=== PATIENT | male | born 1950 ===

== ENCOUNTER 2020-06-29 10:54 | Inpatient (IN) | payer MEDICARE, OTHER ==
[~2020-06-29] VITALS: Ht 193 cm; Wt 161.5 kg
[2020-06-29] MEDS ORDERED: SODIUM CHLORIDE 0.9% 1,000 ML IVB ONE (11:11)
[2020-06-29 11:51] LABS: Urine Bacteria NONE SEEN /hpf (None Seen); Urine Blood 1+ /uL (Negative); Urine Hyaline Cast MOD /lpf (0 - 2); Urine Mucus FEW (None Seen); Urine Specific Gravity 1.014 (1.001-1.035); Urine WBC 4 /hpf (0 - 3)
[2020-06-29 11:55] LABS: Eosinophils # (auto) 0 10 ^3/uL (0-0.8); Lymphocytes # (auto) 0.7 10 ^3/uL (0.4-5.4); Red Blood Cells 6.16 10^6/uL (4.5-5.90)
[2020-06-29 11:57] LABS: Basophils # (auto) 0 10 ^3/uL (0-0.2); Basophils % (auto) 0.3 % (0.0-2.0); Hematocrit 51.2 % (41.0-53.0); Hemoglobin 16.3 g/dL (13.5-17.5); Lymphocytes % (auto) 4.1 % (10.0-50.0); Mean Corpuscular Hemoglobin 26.4 pg (28.0-32.0); Mean Corpuscular Hgb Conc. 31.8 g/dL (32.0-36.0); Monocytes # (auto) 1.2 10 ^3/uL (0-1.3); Monocytes % (auto) 7.1 % (0.0-12.0); Neutrophils # (auto) 15.1 10 ^3/uL (1.6-8.6); Neutrophils % (auto) 88.5 % (37.0-80.0); Nucleated Red Blood Cells % 0.1 %; Platelet Count (auto) 150 10^3/uL (140-450); White Blood Cell 17.1 10^3/uL (4.4-10.8)
[2020-06-29 12:03] LABS: INR 1.17 (0.9-1.15); Partial Thromboplastin Time 25.9 sec (23.0-31.2)
[2020-06-29 12:07] LABS: Chloride 103 mmol/L (98-107); Potassium 5.4 mmol/L (3.5-5.1); Sodium 137 mmol/L (136-145)
[2020-06-29 12:07] LABS: Alcohol, Urine < 3.0 mg/dL (0-10); Amphetamine Screen, Urine NEGATIVE (NEGATIVE); Barbiturate Scree,Urine NEGATIVE (NEGATIVE); Benzodiazephine Screen, Urine NEGATIVE (NEGATIVE); Cannabinoid Screen, Urine POSITIVE (NEGATIVE); Cocaine Screen, Urine NEGATIVE (NEGATIVE); Opiate Scree,Urine NEGATIVE (NEGATIVE); Phencyclidine Screen, Urine NEGATIVE (NEGATIVE)
[2020-06-29 12:18] LABS: Alanine Aminotransferase 57 U/L (16-61); Albumin 3.4 g/dL (3.4-5.0); Alkaline Phosphatase 62 U/L (45-117); Anion Gap 9 (5-15); Aspartate Aminotransferase 122 U/L (15-37); BUN/Creatinine Ratio 9.4; Bilirubin, Total 1.2 mg/dL (0.2-1.0); Blood Alcohol < 3.0 mg/dL (0-5); Blood Urea Nitrogen 43 mg/dL (7-18); Calcium 7.8 mg/dL (8.5-10.1); Carbon Dioxide 25 mmol/L (21-32); GFR African American 16 mL/min; GFR Non-African American 14 mL/min; Glucose 171 mg/dL (74-106); Magnesium 2.6 mg/dL (1.6-2.6); Total Protein 6.9 g/dL (6.4-8.2)
[2020-06-29 14:51] LABS: Creatinine, Urine 177 mg/dL (30.0-125.0); Sodium Urine 40 mmol/L (40-220)
[2020-06-29] MEDS ORDERED: cefTRIAXone 1GM/50ML D5W 50 ML IV ONE (15:45)
[2020-06-29] MEDS ORDERED: MORPHINE SULF INJ 2 MG/ML SYRINGE 1ML IV PRN ×2 (17:00→19:30)
[2020-06-29] MEDS ORDERED: NITROGLYCERIN 0.4 MG SL TAB SL PRN (17:00)
[2020-06-29] MEDS ORDERED: SODIUM BICARBONATE 8.4 % INJ 50ML VIAL IV ONE (17:15)
[2020-06-29] MEDS ORDERED: FUROSEMIDE 40 MG/4 ML VIAL IV ONE (17:15)
[2020-06-29] MEDS ORDERED: DEXTROSE (50%) 50ML SYRG IV ONE (17:15)
[2020-06-29] MEDS ORDERED: InsuLIN REG 1unit/0.01ml Soln (100units/ml) SC ONE (17:15)
[2020-06-29] MEDS ORDERED: traMADol HCL 50 MG TAB PO PRN (19:30)
[2020-06-29] MEDS ORDERED: ONDANSETRON HCL 4 MG/2 ML VIAL IV PRN (19:30)
[2020-06-29] MEDS ORDERED: SODIUM CHLORIDE 0.9% 1,000 ML IV ONE (19:30)
[2020-06-29] MEDS ORDERED: DEXTROSE (50%) 50ML SYRG IV PRN (19:30)
[2020-06-29] MEDS ORDERED: ACETAMINOPHEN 500 MG TAB PO PRN (19:30)
[2020-06-29] MEDS: FAMOTIDINE (10MG/ML) 2ML VL IV SCH (22:09)
[2020-06-29] MEDS: metroNIDAZOLE 500MG/100ML 100 ML IV SCH (22:09)
[2020-06-29] MEDS: ACCU-CHEK COMFORT CURVE STRIP VI SCH (22:09)
[2020-06-29] MEDS: InsuLIN REG 1unit/0.01ml Soln (100units/ml) SC SCH (22:15)
--- NOTE | 2020-06-29 22:46 | NUR ---
Telemetry admit from [facility] admitted to Telemetry unit. Patient oriented to Mary Ellen Harper RN primary RN, unit, room, bed, and unit policies regarding patient care and visiting hours. Patient now on continuous telemetry monitoring, tele box #[id number] and telemetry reading on arrival to unit is SR. Patient placed on bedside oxygen 8L via simple mask, weighed by bedscale and encouraged to call if they need something. All questions and concerns addressed, patient verbalized understanding. Fall and safety precautions in place. Call light within reach. Wound picture taken of patient's buttocks
[2020-06-30] VITALS (50 sets, daily range): BP systolic 81–141; BP diastolic 33–76
[2020-06-30] MEDS ORDERED: METO2.5T11 PO (01:44)
[2020-06-30] MEDS ORDERED: MULTCHW OR (01:44)
[2020-06-30] MEDS ORDERED: COLCPOW2 PO (01:44)
[2020-06-30] MEDS ORDERED: DILT30TA24 PO (01:44)
[2020-06-30] MEDS ORDERED: METF-370 PO (01:44)
[2020-06-30] MEDS: metroNIDAZOLE 500MG/100ML 100 ML IV SCH ×3 (05:34→22:00)
[2020-06-30] MEDS: InsuLIN REG 1unit/0.01ml Soln (100units/ml) SC SCH ×4 (05:52→22:00)
[2020-06-30] MEDS: ACCU-CHEK COMFORT CURVE STRIP VI SCH ×4 (05:52→22:00)
[2020-06-30 07:02] LABS: Hemoglobin 17.9 g/dL (13.5-17.5); White Blood Cell 25.5 10^3/uL (4.4-10.8)
[2020-06-30 07:05] LABS: Mean Corpuscular Hemoglobin 26.2 pg (28.0-32.0); Mean Corpuscular Hgb Conc. 31.3 g/dL (32.0-36.0); Mean Corpuscular Volume 83.7 fL (80.0-100.0); Platelet Count (auto) 166 10^3/uL (140-450); Red Blood Cells 6.81 10^6/uL (4.5-5.90); Red Cell Distribution Width 21.6 % (11.8-14.3)
[2020-06-30 07:08] LABS: Basophils % (manual) 0 (0.0-2.0); Blast Cells 0; Eosinophils % (manual) 0 (0-7); Metamyelocytes % 0; Myelocytes % 0; Promyelocytes % 0; Reactive Lymphocytes 0
[2020-06-30 07:45] LABS: Albumin 3.2 g/dL (3.4-5.0); BUN/Creatinine Ratio 11.2; Calcium 7.4 mg/dL (8.5-10.1); Total Protein 7.1 g/dL (6.4-8.2)
[2020-06-30 07:59] LABS: Potassium 5.7 mmol/L (3.5-5.1)
--- NOTE | 2020-06-30 08:00 | NUR ---
Received pt resting in bed, call light with in reach, pt on simple mask at 8 lit of O2, alicia draining to gravity with dark brown urine, pt responsive to voice, pt turned and reposition, will continue to monitor pt.
[2020-06-30] MEDS ORDERED: CALCIUM GLUC 4.65meq/50ml D5AE 50 ML IV ONE (08:30)
[2020-06-30] MEDS ORDERED: SODIUM BICARBONATE 8.4% INJ 50ML SYRINGE IV ONE (08:30)
[2020-06-30] MEDS ORDERED: DEXTROSE (50%) 50ML SYRG IV ONE (08:30)
[2020-06-30] MEDS ORDERED: FUROSEMIDE 20 MG/2 ML VIAL IV ONE (08:30)
[2020-06-30] MEDS ORDERED: InsuLIN REG 1unit/0.01ml Soln (100units/ml) IV ONE (08:30)
--- NOTE | 2020-06-30 08:30 | NUR ---
Dr. Nathan at unit, doctor informed regarding critical potassium level of 5.7, that pt is only responsive to voive, that pt is tachypneic, that pt is on a simple mask at 8 lit, orders received and will follow order.
[2020-06-30] MEDS ORDERED: cefTRIAXone 1GM/50ML D5W 50 ML IV SCH (09:00)
[2020-06-30] MEDS ORDERED: ENOXAPARIN SOD 30 MG/0.3 ML SYRINGE SC SCH (10:00)
[2020-06-30] MEDS: PIPERACILLIN-TAZOB 3.375GM 100 ML IV SCH ×2 (10:00→18:00)
--- NOTE | 2020-06-30 10:00 | NUR ---
Pt taken to ICU bed 7.
--- NOTE | 2020-06-30 10:05 | NUR ---
Pt being admitted to ICU [facility] admitted to ICU via gurney on motor boss, and portable 02. Patient transferred to bed, connected to ICU monitoring and oxygen, [facility] Patient oriented to ARELI OQUENDO, primary RN. ASSESSMENT DONE, SKIN CHECK REVEALS NON BLANCHABLE PURPLE/REDNESS RO BUTTOCKS WITH LINEAR BLISTERS TO BOTH RIGHT AND LEFT BUTTOCKS, PATIENT CURRENTLY ON 10 L NON-REBREATHER WITH RESPIRATIONS AT 36BPM. CALL PLACED TO TO VERIFY CHEM CODE STATUS.
[2020-06-30] MEDS ORDERED: ETOMIDATE (2MG/ML) 20ML VIAL IV ONE (11:46)
[2020-06-30] MEDS ORDERED: SUCCINYLCHOLINE CHLORIDE 20 MG/ML 10ML VIAL IV ONE (11:47)
--- NOTE | 2020-06-30 11:50 | NUR ---
AT BEDSIDE FOR INTUBATION
[2020-06-30] MEDS ORDERED: MIDAZOLAM HCL 5 MG/ML-1ML VIAL ONE ×2 (12:05→12:41)
[2020-06-30] MEDS ORDERED: MIDAZOLAM DRIP 50 mg/50mL 50 ML IV ONE ×2 (12:23→15:28)
--- NOTE | 2020-06-30 12:30 | NUR ---
WOUND CARE NOTE: WOUND CARE IN TO SEE PATIENT PER WOUND CARE REQUEST. PATIENT ADMITTED TO [facility] FOR ACUTE RENAL FAILURE AND ALOC. BEDSIDE NURSE NOTED SKIN INTEGRITY ISSUE UPON ADMISSION. PHOTOGRAPH TAKEN AT THAT TIME FOR REFERENCE. PATIENT SAMUEL SCORE IS 12. PATIENT NOTED TO HAVE REDNESS AND CLOSED BLISTERS TO SACRUM. PATIENT CURRENTLY BEING INTUBATED AT THIS TIME. PATIENT NOT STABLE FOR ASSESSMENT AT THIS TIME. RECOMMEND: FREQUENT Q2HOUR REPOSITIONING CONDITION PERMITS. REDISTRIBUTE PRESSURE UTILIZING PILLOWS AND WEDGES. BID/PRN MOISTURE BARRIER CREAM TO SACRUM. SKIN/WOUND CARE PLAN. DIETARY CONSULT. CONTINUED MONITORING BY WOUND CARE TEAM.
[2020-06-30 12:33] LABS: Band Neutrophils % (manual) 13; Lymphocytes % (manual) 4 (10.0-50.0); Monocytes % (manual) 5 (0-12)
--- NOTE | 2020-06-30 12:46 | NUR ---
INTUBATION PT WAS DIFFICULT INTUBATION, REMOVED UNKNOWN FOREIGN OBJECT FROM PT'S AIRWAY BY WITH LAMONTE FORCEPS. INTUBATION ATTEMPTED MULTIPLE TIMES BY DR. PENNINGTON WITHOUT SUCCESS. CALLED ANESTHESIA, PT WAS INTUBATED BY DR. PALMER WITH GLIDESCOPE, WITH ETT 7.5 SECURED AT 25CM LIP, SECURED WITH HOLISTER. POSITIVE COLOR CHANGE ON COLORMETRIC CO2 DETECTOR. PLACED ON VENT V21 PLUGGED INTO RED OUTLET, ON SETTINGS: AC, RR 16, VT 600, PEEP +5, FIO2 60%. BREATH SOUNDS DIMINISHED T/O. SUCTIONED WITH LAVAGE FOR MODERATE THICK YELLOW/BLOOD-TINGED SECRETIONS. ALARMS SET AND AUDIBLE. PT SEDATED AND UNRESPONSIVE. SKIN IS WARM AND DRY TO TOUCH. RN AT BEDSIDE. ABG TO FOLLOW. WILL CONT TO MONITOR.
[2020-06-30] MEDS ORDERED: ROCURONIUM 10MG/ML 10ML VIAL IV ONE ×2 (12:50→13:00)
--- NOTE | 2020-06-30 12:54 | NUR ---
SEDATION OBTAINED SEDATION ORDERS FROM FOR VERSED, FENTANYL, AND ONE TIME DOSE OF ROCURONIUM. PARALYTIC ADMINISTERED BY
[2020-06-30] MEDS ORDERED: MIDAZOLAM HCL 5 MG/ML-1ML VIAL IV ONE ×2 (13:00)
--- NOTE | 2020-06-30 13:07 | NUR ---
ETT 7.5 @ 27CM RADIOLOGY AT BEDSIDE, CXR REVEALED ETT PLACED IN TRACHEA BUT APPEARS HIGH. ADVANCED ETT TO 27CM LIP, CXR TAKEN ONE MORE TIME BY METAL PAINTER. ETT NOW APPEARS APPROPRIATELY PLACED. RN AWARE OF CHANGES.
--- NOTE | 2020-06-30 13:30 | NUR ---
EVELINE TEST Eveline test specimen was obtained by primary RN Sayda Enriquez and walked to the lab by this RN and logged the specimen.
[2020-06-30 14:11] LABS: Potassium 5.5 mmol/L (3.5-5.1)
[2020-06-30] MEDS: fentaNYL Drip 2500mCg/250mlNS 250 ML IV SCH (14:30)
--- NOTE | 2020-06-30 15:50 | NUR ---
DR. SERRANO AT BEDSIDE, UPDATED MD ON PT STATUS. VENT CHANGED MADE BY MD. PT NOW ON SETTINGS: AC, RR 16, VT 700, PEEP +5, FIO2 60%. PT TOLERATING CHANGES, BREATHING OVER THE VENT WITH RR 24, MD IS AWARE. ABG TO FOLLOW. WILL CONT TO MONITOR.
[2020-06-30] MEDS ORDERED: NOREPINEPHRINE 8 MG/250ML KIT 250 ML IV ONE (16:19)
[2020-06-30] MEDS: PROPOFOL 100 ML IV SCH (17:30)
[2020-06-30] MEDS: MIDAZOLAM DRIP 50 mg/50mL 50 ML IV SCH (17:41)
[2020-06-30] MEDS: NOREPINEPHRINE 8 MG/250ML KIT 250 ML IV SCH (17:41)
[2020-06-30] MEDS: FUROSEMIDE INJECTION 100 MG in D5W 5% 100 ML IV SCH ×2 (17:56→18:03)
[2020-06-30] MEDS ORDERED: metFORMIN HYDROCHLORIDE 500 MG TAB PO SCH (18:00)
[2020-06-30] MEDS: PHENYLEPHRINE IV 250 ML IV SCH (18:18)
[2020-06-30] MEDS: SODIUM BICARBONATE 50ML VIAL 50 ML in SOD CHL 0.45% 1,000 ML IV SCH (18:26)
[2020-06-30] MEDS: FAMOTIDINE (10MG/ML) 2ML VL IV SCH (22:00)
[2020-06-30 22:38] LABS: INR 1.34 (0.9-1.15)
[2020-07-01] VITALS (93 sets, daily range): BP systolic 89–156; BP diastolic 48–80
[2020-07-01] MEDS: PIPERACILLIN-TAZOB 3.375GM 100 ML IV SCH (02:00)
[2020-07-01 05:37] LABS: Basophils # (auto) 0.1 10 ^3/uL (0-0.2); Basophils % (auto) 0.3 % (0.0-2.0); Eosinophils # (auto) 0 10 ^3/uL (0-0.8); Neutrophils % (auto) 81.2 % (37.0-80.0); Nucleated Red Blood Cells % 0.2 %
[2020-07-01 05:43] LABS: Hemoglobin 17.1 g/dL (13.5-17.5); Lymphocytes # (auto) 1.1 10 ^3/uL (0.4-5.4); Lymphocytes % (auto) 4.5 % (10.0-50.0); Mean Corpuscular Hemoglobin 26.3 pg (28.0-32.0); Mean Corpuscular Hgb Conc. 31.7 g/dL (32.0-36.0); Mean Corpuscular Volume 82.9 fL (80.0-100.0); Monocytes # (auto) 3.5 10 ^3/uL (0-1.3); Neutrophils # (auto) 20.1 10 ^3/uL (1.6-8.6); Platelet Count (auto) 179 10^3/uL (140-450); Red Blood Cells 6.51 10^6/uL (4.5-5.90); White Blood Cell 24.8 10^3/uL (4.4-10.8)
[2020-07-01 05:48] LABS: Red Cell Distribution Width 21.1 % (11.8-14.3)
[2020-07-01] MEDS: metroNIDAZOLE 500MG/100ML 100 ML IV SCH (06:00)
[2020-07-01] MEDS: ACCU-CHEK COMFORT CURVE STRIP VI SCH ×4 (06:47→21:51)
[2020-07-01] MEDS: InsuLIN REG 1unit/0.01ml Soln (100units/ml) SC SCH ×4 (06:47→21:52)
--- NOTE | 2020-07-01 07:00 | NUR ---
Respiratory note: RECEIVED PATIENT ON V21 V200 VENT ORALLY INTUBATED WITH AN 7.5 ETT SECURED VIA WILLA AT THE 27CM MARKING AT THE LIP, AND MECHANICALLY VENTILATED WITH THE CHARTED SETTINGS. SPO2 97%, LUNG SOUNDS CLEAR/DIM T/O. SKIN IS WARM/DRY TO THE TOUCH AND IS INTACT NEAR WILLA SITE. THERE IS A COOLING BLANKET ON TOP AND UNDER PATIENT. CURRENT TEMP IS 99.5. NO NEW AM CXR TO ASSESS. PATIENT IS UNRESPONSIVE TO BOTH VERBAL/TACTILE STIMULI AND IS SEDATED ON VERSED AND FENTANYL DRIPS. HE IS RESTING COMFORTABLY AND TOLERATING VENT WELL, NO CHANGES MADE. VENT PLUGGED INTO RED OUTLET AND ALL ALARMS ARE SET AND AUDIBLE. WILL CONTINUE TO ASSESS PATIENT WELL VENTILATOR FUNCTION.
--- NOTE | 2020-07-01 07:30 | NUR ---
REPORT RECEIVED FROM APPLICATION SUPPORT ENGINEER NURSE. PATIENT RESTING IN BED INTUBATED AND SEDATED. RESPIRATIONS EVEN AND UNLABORED. NO SIGNS ACUTE DISTRESS NOTED. BED IN LOW POSITION. WILL CONTINUE TO MONITOR.
--- NOTE | 2020-07-01 08:00 | NUR ---
DISH WASHER AT BEDSIDE.
--- NOTE | 2020-07-01 08:05 | NUR ---
DR Analia ANGULO AT BEDSIDE TO ASSESS PATIENT AND DISCUSS PLAN OF CARE. ALL ORDERS NOTED IN CHART.
--- NOTE | 2020-07-01 09:14 | NUR ---
CONTROLS DESIGN ENGINEER AT BEDSIDE.
[2020-07-01] MEDS: FUROSEMIDE INJECTION 100 MG in D5W 5% 100 ML IV SCH ×5 (09:15→23:26)
--- NOTE | 2020-07-01 09:15 | NUR ---
SPOKE TO DR SERRANO AND REVIEWED PATIENT STATUS AND ABG RESULTS. PER MD INCREASE PATIENTS RR TO 18 AND GIVEN 1 AMP SODIUM BICARBONATE IVP X1 DOSE AND START PATIENT ON HYDROCORTISONE 50MG IVP Q6 HRS. ALL ORDERS NOTED IN CHART.
[2020-07-01] MEDS: SODIUM BICARBONATE 50ML VIAL 50 ML in SOD CHL 0.45% 1,000 ML IV SCH ×2 (09:22→10:15)
[2020-07-01] MEDS ORDERED: SODIUM BICARBONATE 8.4 % INJ 50ML VIAL IV ONE (09:30)
--- NOTE | 2020-07-01 09:45 | NUR ---
Respiratory note: RESPIRATORY RATE INCREASED TO [address] SERRANO'S ORDER. STACEY MILLER MADE AWARE OF CHANGE.
[2020-07-01] MEDS ORDERED: ENOXAPARIN SOD 150 MG/1 ML SYRINGE SC SCH (10:00)
--- NOTE | 2020-07-01 10:45 | NUR ---
UPDATED DAUGHTER ON PATIENT STATUS AND PLAN OF CARE. ALL QUESTIONS AND CONCERNS ADDRESSED AT THIS TIME.
[2020-07-01 10:55] LABS: Alkaline Phosphatase 64 U/L (45-117); Anion Gap 17 (5-15); Aspartate Aminotransferase 681 U/L (15-37); BUN/Creatinine Ratio 10.6; Carbon Dioxide 16 mmol/L (21-32); Chloride 105 mmol/L (98-107); GFR African American 9 mL/min; GFR Non-African American 7 mL/min; Glucose 263 mg/dL (74-106); Sodium 138 mmol/L (136-145)
[2020-07-01 10:56] LABS: Alanine Aminotransferase 226 U/L (16-61); Albumin 2.3 g/dL (3.4-5.0); Bilirubin, Total 1.1 mg/dL (0.2-1.0); Calcium 6.9 mg/dL (8.5-10.1); Total Protein 6.2 g/dL (6.4-8.2)
[2020-07-01 10:58] LABS: Blood Urea Nitrogen 82 mg/dL (7-18); Potassium 5.6 mmol/L (3.5-5.1)
[2020-07-01] MEDS: PHENYLEPHRINE IV 250 ML IV SCH ×3 (10:58→19:18)
[2020-07-01] MEDS: MEROPENEM 500MG IVPB 50 ML IV SCH ×2 (11:13→21:50)
[2020-07-01] MEDS: MIDAZOLAM DRIP 50 mg/50mL 50 ML IV SCH ×3 (11:19→17:38)
--- NOTE | 2020-07-01 11:32 | NUR ---
Nutrition Consult/Assessment Note please see attached link for complete assessment Est [employer] needs ABW 121 [id number] kcals (17-20 kcal/kgABW), Est Protein needs: 121-133 gms/day (1.0-1.1 gm/kgABW). Will continue to monitor and reassess prn. Addendum: 07/01/20 at [address] Amended: Links added.
--- NOTE | 2020-07-01 11:34 | NUR ---
MD CALLED REVIEWED CRITICAL LAB VALUES WITH DR GARDUNO, PER MD INCREASE PATIENTS BICARBONATE DRIP TO 2 AMPS AT PREVIOUS RATE. ALL ORDERS NOTED IN CHART.
[2020-07-01] MEDS: NOREPINEPHRINE 8 MG/250ML KIT 250 ML IV SCH ×3 (12:10→22:00)
[2020-07-01] MEDS: HYDROCORTISONE SOD SUCC 100 MG/2ML INJ VIAL IV SCH ×3 (12:16→23:37)
[2020-07-01] MEDS: LINEZOLID 600MG/300ML 300 ML IV SCH ×2 (12:16→23:37)
--- NOTE | 2020-07-01 12:30 | NUR ---
WOUND CARE NOTE: IN TO SEE PATIENT AT THIS TIME PATIENT IS MORE HEMODYNAMICALLY STABLE, ABLE TO TURN/ASSESS SKIN. CURRENT SAMUEL SCORE IS 12. HE REMAINS INTUBATED, SEDATED. PATIENT WAS NOTED UPON ADMIT TO ICU TO HAVE EARLY DTI, WITH MASD/SKIN EROSION TO INTRAGLUTEAL SKIN. WOUND PHOTO WAS TAKEN AT THAT TIME BY BEDSIDE NURSE FOR REFERENCE. PATIENT EVIDENTLY WAS FOUND UNRESPONSIVE BY FAMILY MEMBER, BROUGHT IN TO ER. PATIENT'S ADMITTING DIAGNOSIS IS ACUTE RENAL FAILURE, ALOC. PATIENT TURNED TO RIGHT SIDE. HIS DTI HAS CONTINUED TO EVOLVE, AND IS NOW DARK PURPLE, WITH OPEN SKIN EROSION D/T MASD. PERIWOUND SKIN IS BRIGHT RED. PATIENT HAS GENERLIZED EDEMA NOTED, WITH TAUT SKIN. SKIN IS ALSO VERY MOIST FROM PERSPIRATION. ZGUARD APPLIED TO PARTIAL THICKNESS SKIN EROSION, OPTIFOAM GENTLE SACRAL DRESSING APPLIED TO UPPER SACRUM. PATIENT ALSO HAS MULTIPLE AREAS WITH INTERTRIGO, INCLUDING: LEFT FLANK SKIN FOLD, LEFT AND RIGHT GROIN, ABD. PATIENT WOULD BENEFIT FROM NYSTATIN POWDER OR INTERDRY AG. BILATERAL PLANTAR # 1 TOES HAVE INTACT DFU ULCERATIONS. NO S/S OF INFECTION OR DRAINAGE NOTED. LEFT OPEN TO AIR. NEW WOUND PHOTOS TAKEN OF ALL SKIN INTEGRITY ISSUES FOR REFERENCE AT THIS TIME. RECOMMEND:FREQUENT TURN SCHEDULE Q 2 HOURS, PRN CONDITION PERMITS, WITH SIDE TO SIDE POSITIONING, AVOIDING SUPINE POSITION. PRESSURE REDISTRIBUTION USING PILLOWS/WEDGESS, CONTINUE WITH LOW AIRLOSS ICU MATTRESS, NYSTATIN POWDER OR INTERDRY AG TO SKIN FOLD AREAS WITH INTERTRIGINOUS RASH, DIETARY CONSULT, SKIN/WOUND CARE PLAN, CONTINUED MONITORING BY WOUND CARE TEAM. Addendum: 07/01/20 at 1452 by Aileen Dumont RN Amended: Links added.
--- NOTE | 2020-07-01 12:30 | NUR ---
WOUND CARE NURSE AT BEDSIDE TO ASSESS PATIENT.
[2020-07-01] MEDS: SODIUM BICARBONATE 50ML VIAL 100 ML in SOD CHL 0.45% 1,000 ML IV SCH (13:45)
[2020-07-01] MEDS ORDERED: CLINDAMYCIN 600MG IV 50 ML IV SCH (14:00)
--- NOTE | 2020-07-01 15:35 | NUR ---
DR GARDUNO AT BEDSIDE TO ASSESS PATIENT AND DISCUSS PLAN OF CARE. ALL ORDERS NOTED IN CHART.
[2020-07-01] MEDS: PROPOFOL 100 ML IV SCH (15:39)
--- NOTE | 2020-07-01 16:00 | NUR ---
UPDATED DAUGHTER ON PATIENT STATUS AND PLAN OF CARE. ALL QUESTIONS AND CONCERNS ADDRESSED AT THIS TIME.
[2020-07-01] MEDS: fentaNYL Drip 2500mCg/250mlNS 250 ML IV SCH (16:29)
--- NOTE | 2020-07-01 19:30 | NUR ---
Opening Shift Note received report from Jessica IBARRA with Sav IBARRA. Pt is intubated and sedated. No s/s of distress at this time. VS stable. Bed is locked at lowest position, side rails are up. Will continue to monitor.
--- NOTE | 2020-07-01 19:45 | NUR ---
dr tucker at bedside discussed pt status and poc. no new orders received. will continue to monitor.
[2020-07-01] MEDS: FAMOTIDINE (10MG/ML) 2ML VL IV SCH (21:50)
[2020-07-01] MEDS: NYSTATIN TOPICAL POWDER 15GM TOP SCH (21:50)
[2020-07-02] VITALS (93 sets, daily range): BP systolic 91–132; BP diastolic 46–72
--- NOTE | 2020-07-02 | NUR ---
Neuro status Pt is lying in bed, eyes closed and is still not responding to painful stimuli. VS WNL. No s/s of distress at this time. Will continue to hold Versed and monitor the patient.
[2020-07-02] MEDS: SODIUM BICARBONATE 50ML VIAL 100 ML in SOD CHL 0.45% 1,000 ML IV SCH ×3 (00:52→22:17)
[2020-07-02] MEDS: NOREPINEPHRINE 8 MG/250ML KIT 250 ML IV SCH (02:02)
[2020-07-02] MEDS: PHENYLEPHRINE IV 250 ML IV SCH ×2 (03:38→11:22)
[2020-07-02 04:14] LABS: Eosinophils # (auto) 0 10 ^3/uL (0-0.8); Hemoglobin 15.9 g/dL (13.5-17.5); Monocytes # (auto) 2.5 10 ^3/uL (0-1.3)
[2020-07-02 04:16] LABS: Basophils # (auto) 0.3 10 ^3/uL (0-0.2); Basophils % (auto) 1.5 % (0.0-2.0); Hematocrit 48.8 % (41.0-53.0); Lymphocytes # (auto) 0.5 10 ^3/uL (0.4-5.4); Lymphocytes % (auto) 2.2 % (10.0-50.0); Mean Corpuscular Hemoglobin 26.7 pg (28.0-32.0); Mean Corpuscular Hgb Conc. 32.6 g/dL (32.0-36.0); Mean Corpuscular Volume 82.1 fL (80.0-100.0); Monocytes % (auto) 11.4 % (0.0-12.0); Neutrophils # (auto) 18.3 10 ^3/uL (1.6-8.6); Neutrophils % (auto) 84.9 % (37.0-80.0); Platelet Count (auto) 178 10^3/uL (140-450); Red Blood Cells 5.95 10^6/uL (4.5-5.90); White Blood Cell 21.6 10^3/uL (4.4-10.8)
[2020-07-02 04:28] LABS: Albumin 2.1 g/dL (3.4-5.0); Calcium 6.6 mg/dL (8.5-10.1); Potassium 4.8 mmol/L (3.5-5.1)
[2020-07-02 04:34] LABS: BUN/Creatinine Ratio 13.1; Total Protein 5.9 g/dL (6.4-8.2)
[2020-07-02] MEDS: FUROSEMIDE INJECTION 100 MG in D5W 5% 100 ML IV SCH ×4 (04:45→17:58)
--- NOTE | 2020-07-02 04:45 | NUR ---
Patient bathe/linen change Patient given complete bath with chlorhexidine wipes. Skin integrity assessed for any changes. Linens changed. Patient repositioned for comfort.
[2020-07-02 04:55] LABS: Red Cell Distribution Width 21.5 % (11.8-14.3)
[2020-07-02] MEDS: ACCU-CHEK COMFORT CURVE STRIP VI SCH ×4 (06:09→22:22)
[2020-07-02] MEDS: HYDROCORTISONE SOD SUCC 100 MG/2ML INJ VIAL IV SCH ×3 (06:09→17:50)
[2020-07-02] MEDS: InsuLIN REG 1unit/0.01ml Soln (100units/ml) SC SCH ×4 (06:10→23:13)
--- NOTE | 2020-07-02 06:30 | NUR ---
Family Sri (daughter) on the phone. pw verified. updated pt status and poc. addressed all questions and concerns. PICC line telephone consent given.
--- NOTE | 2020-07-02 08:00 | NUR ---
OPEN RECEIVED REPORT FROM NIGHT RN. ASSUMED CARE OF ICU PATIENT. PATIENT SEDATED ON VENT. CURRENT FIO2 AT 30%, PEEP +5. PATIENT ON SEDATION, SEE GTT'S AND TITRATIONS MADE IV IV SPREADSHEET. KIM TO GRAVITY. WILL CONTINUE TO MONITOR. SEE CORING MACHINE OPERATOR FOR FURTHER PATIENT INFORMATION.
--- NOTE | 2020-07-02 09:00 | NUR ---
DR. Tatiana ANGULO AT BEDSIDE: ORDERS MD UPDATED ON PT'S CURRENT STATUS, LABS AND POC FOR TODAY. ORDERS GIVEN AND TO BE CARRIED OUT. DR. MARK ALSO AT BEDSIDE, ASSESSING PATIENT. WILL CONTINUE CARE.
[2020-07-02] MEDS: ENOXAPARIN SOD 150 MG/1 ML SYRINGE SC SCH (09:27)
[2020-07-02] MEDS: NYSTATIN TOPICAL POWDER 15GM TOP SCH ×2 (09:27→22:22)
[2020-07-02] MEDS: MEROPENEM 500MG IVPB 50 ML IV SCH ×2 (09:41→22:18)
[2020-07-02] MEDS: LINEZOLID 600MG/300ML 300 ML IV SCH (11:48)
[2020-07-02 12:21] LABS: INR 1.18 (0.9-1.15); Partial Thromboplastin Time 33.3 sec (23.0-31.2)
--- NOTE | 2020-07-02 12:32 | NUR ---
DR. GARDUNO AT BEDSIDE: ORDERS MD UPDATED ON PT'S CURRENT STATUS, LABS AND POC FOR TODAY. ORDERS GIVEN TO CONTINUE PATIENT ON LASIX AND BICARB GTT ORDERED. WILL CARRY OUT ANY FURTHER ORDERS GIVEN. WILL CONTINUE TO MONITOR.
[2020-07-02] MEDS: fentaNYL Drip 2500mCg/250mlNS 250 ML IV SCH (12:50)
[2020-07-02] MEDS: PROPOFOL 100 ML IV SCH (12:51)
--- NOTE | 2020-07-02 15:50 | NUR ---
PICC line placement Patient significant other educated on need for PICC line placement. All risks and benefits explained and all questions and concerns addressed prior to procedure. Noted past medical history and allergies with no contraindications. INR and Plt counts within acceptable range. 6 fr PICC line inserted via RIGHT BASILIC vein using [employer] US and Tip Location System. Sterile technique with maximum barrier precautions utilized. Blood return obtained from each of 3 lumens and each flushed easily with NS using proper technique. PICC secured with Stat-lock; biodisc and occlusive dressing applied. Stat portable chest x-ray obtained for PICC tip placement. *Baseline Arm Circumference 42CM. *INTERNAL LENGTH 48CM *EXTERNAL LENGHT 0 CM *PICC lot # [id number]. Note:
[2020-07-02] MEDS ORDERED: LIDOCAINE 1% (LOCAL ANESTH.) PF 5ml SDV ID ONE (16:00)
--- NOTE | 2020-07-02 16:33 | NUR ---
OK to use PICC line Xray completed. OK to use PICC line. PRIMARY RN NOTIFIED
--- NOTE | 2020-07-02 18:00 | NUR ---
DC'D RIGHT FEMORAL TLC OKAY TO USE RIGHT UA PICC LINE. DC'D FEMORAL LINE PER DR. SERRANO' ORDERS. ALL PORTS FLUSHED ALSO. CONTINUE CARE. NO BRUISING, NO HEMATOMA NOTED TO RIGHT FEMORAL SITE AFTER REMOVAL . CONTINUE CARE.
--- NOTE | 2020-07-02 18:46 | NUR ---
DR. SERRANO CALLED: ORDERS MD WANTING CPAP TRIAL FOR TOMORROW AM PER PROTOCOL. ORDERS FOR CXR AND ABG IN AM. CONTINUE CARE.
[2020-07-02] MEDS: FAMOTIDINE (10MG/ML) 2ML VL IV SCH (22:18)
[2020-07-02] MEDS: SODIUM CHLOR 0.9% PF (SALINE LOCK) 10ML VIAL/SYR IV SCH (22:19)
[2020-07-03] VITALS (74 sets, daily range): BP systolic 82–123; BP diastolic 33–64
[2020-07-03] MEDS: HYDROCORTISONE SOD SUCC 100 MG/2ML INJ VIAL IV SCH ×5 (00:54→23:45)
[2020-07-03] MEDS: LINEZOLID 600MG/300ML 300 ML IV SCH ×3 (00:55→23:45)
[2020-07-03] MEDS ORDERED: ATROPINE SULFATE 1 MG/1 ML VIAL ONE (01:55)
[2020-07-03 02:39] LABS: BUN/Creatinine Ratio 14.1; Calcium 6.4 mg/dL (8.5-10.1); Mean Corpuscular Volume 82.5 fL (80.0-100.0); Potassium 4.7 mmol/L (3.5-5.1)
[2020-07-03 02:40] LABS: Hematocrit 44.2 % (41.0-53.0); Hemoglobin 14.2 g/dL (13.5-17.5); Mean Corpuscular Hemoglobin 26.5 pg (28.0-32.0); Mean Corpuscular Hgb Conc. 32.1 g/dL (32.0-36.0); Platelet Count (auto) 143 10^3/uL (140-450); Red Blood Cells 5.36 10^6/uL (4.5-5.90); White Blood Cell 14.9 10^3/uL (4.4-10.8)
[2020-07-03 02:51] LABS: Basophils % (manual) 0 (0.0-2.0); Blast Cells 0; Eosinophils % (manual) 0 (0-7); Metamyelocytes % 0; Myelocytes % 0; Promyelocytes % 0; Reactive Lymphocytes 0; Red Cell Distribution Width 20.5 % (11.8-14.3)
[2020-07-03 03:16] LABS: Albumin 1.8 g/dL (3.4-5.0)
[2020-07-03 03:20] LABS: Bilirubin, Direct 0.4 mg/dL (0-0.2); Bilirubin, Total 0.9 mg/dL (0.2-1.0); Total Protein 5.3 g/dL (6.4-8.2)
[2020-07-03 04:05] LABS: Band Neutrophils % (manual) 9
[2020-07-03 04:06] LABS: Lymphocytes % (manual) 4 (10.0-50.0); Monocytes % (manual) 10 (0-12)
[2020-07-03] MEDS: NOREPINEPHRINE 8 MG/250ML KIT 250 ML IV SCH ×3 (04:28→23:59)
[2020-07-03] MEDS: ACCU-CHEK COMFORT CURVE STRIP VI SCH ×6 (06:49→23:46)
[2020-07-03] MEDS: InsuLIN REG 1unit/0.01ml Soln (100units/ml) SC SCH ×4 (06:50→23:47)
[2020-07-03] MEDS ORDERED: DEXTROSE (50%) 50ML SYRG IV PRN (09:00)
[2020-07-03] MEDS: PHENYLEPHRINE IV 250 ML IV SCH ×4 (09:26→21:18)
[2020-07-03] MEDS: FUROSEMIDE INJECTION 100 MG in D5W 5% 100 ML IV SCH ×3 (09:27→11:00)
[2020-07-03] MEDS: fentaNYL Drip 2500mCg/250mlNS 250 ML IV SCH (09:45)
--- NOTE | 2020-07-03 09:45 | NUR ---
Respiratory note: PT TRANSPORTED TO CT VIA TRANSPORT VENT WITHOUT INCIDENT. RETURNED FROM CT BACK TO ICU BED 107 WITHOUT INCIDENT, AND PLACED BACK ON VENT ON SAME SETTINGS. PT TOLERATED TRANSPORT WELL. RN, AND TECH AT BEDSIDE. WILL CONTINUE TO MONITOR PT.
--- NOTE | 2020-07-03 09:45 | NUR ---
Off floor to CT, IV, O2, RT, and Monitor in place, will cont.to monitor closely for any changes, assessment ongoing.
--- NOTE | 2020-07-03 10:05 | NUR ---
Returned from CT, no distress noted, will cont.to monitor closely for any changes, assessment ongoing.
[2020-07-03] MEDS: MEROPENEM 500MG IVPB 50 ML IV SCH ×2 (10:29→21:26)
[2020-07-03] MEDS: SODIUM CHLOR 0.9% PF (SALINE LOCK) 10ML VIAL/SYR IV SCH ×2 (10:30→21:26)
[2020-07-03] MEDS: ENOXAPARIN SOD 150 MG/1 ML SYRINGE SC SCH (10:30)
[2020-07-03] MEDS: NYSTATIN TOPICAL POWDER 15GM TOP SCH ×2 (10:35→21:30)
[2020-07-03] MEDS: MIDAZOLAM DRIP 50 mg/50mL 50 ML IV SCH (10:45)
[2020-07-03] MEDS: SODIUM BICARBONATE 50ML VIAL 100 ML in SOD CHL 0.45% 1,000 ML IV SCH ×2 (11:00→21:27)
--- NOTE | 2020-07-03 11:26 | NUR ---
Nutrition Followup Note Wt: 151.8 kg Pt`s intubated sedated when rounded this am. per records pt with PNA. per nursing notes pt to be on CPAP dao. pt is currently NPO Est Energy needs ABW 121 [id number] kcals (17-20 kcal/kgABW), Est Protein needs: 121-133 gms/day (1.0-1.1 gm/kgABW). Will continue to monitor and reassess prn. Labs: BUN 120 H CREAT 8.52 H GLU 326 H ALB 1.8 L BM: Pt has no BM reported per RN doc Skin: BS 11 high risk, full details in daycare assistant note PES: Altered nutrition related lab values r.t current chronic medial condition aeb elev RFT A1C hyperglycemia Decreased nutrient needs r/t adiposity aeb pt`s high BMI of 41.1 kgm Impaired swallowing r.t current medical condition aeb pt`s intubated sedated with NPO Comments Will continue to monitor NPO status, skin status, pertinent labs and weight trends. Will f/u in 2-3 days. Rec: 1) advance diet as medically feasible. 2) consider EN support with Glucerna @ 70 ml/hr per MD approval. 3) continue current plan of care
[2020-07-03] MEDS: PROPOFOL 100 ML IV SCH (11:48)
--- NOTE | 2020-07-03 13:28 | NUR ---
Dr. Benitez notified of pt. ectopy, freq PAC's, bradycardia 40's, new orders received and will be implemented, will cont.to monitor for effectiveness of interventions, assessment ongoing.
[2020-07-03] MEDS: MAGNESIUM SULFATE 1GM/100ML 100 ML IV SCH ×2 (14:03→15:00)
--- NOTE | 2020-07-03 19:20 | NUR ---
No distress noted, pt. report given to STACEY Lopez. Care of pt. assumed per NOC shift RN, day shift RN relinquished care and signed off.
--- NOTE | 2020-07-03 20:00 | NUR ---
OPENING NOTE REPORT RECEIVED FROM DAYAN DRAPER. RECEIVED ORALLY INTUBATED PATIENT ETT 7.5 AND 27 @ THE LIP. AC SETTINGS: RATE 18, TV 700, FIO2 40%, PEEP 5. PATIENT CONNECTED TO CONTINUOUS BEDSIDE MONITORS, HEART RATE IN 60'S AND PATIENT IS IN NORMAL SINUS RHYTHM WITH OCCASIONAL PAC'S. NGT TUBE TO RIGHT NARE CONNECTED TO LIS. NO OUTPUT NOTED IN CANISTER. PLACEMENT VERIFIED VIA AUSCULTATION. RESIDUAL CHECKED AND APPROXIMATELY 10ML OF GASTRIC CONTENT REMOVED AND REPLACED. ABDOMEN IS LARGE AND ROUND WITH HYPOACTIVE BOWEL SOUNDS NOTED. KIM DRAINING CLEAR YELLOW URINE TO GRAVITY. RIGHT UPPER ARM PICC LINE TRIPLE LUMEN CATH RUNNING: FENTANYL AT 50MCG/HR, VERSED AT 1MG/HR, LEVOPHED AT 9MCG/MIN, LASIX AT 6.6ML/HR AND NACHL 0.45% WITH SODIUM BICAB 100ML AT 100ML/HR. MULTIPLE SKIN INTEGRITY ISSUES NOTED: OPEN DTI TO COCCYX WITH SEROUS DRAINAGE, RIGHT AND LEFT GROIN INTERTRIGO, LEFT PLANTAR GREAT TOE DFU, RIGHT GREAT TOE DFU, AND LEFT HIP AREA OF ECCHYMOSIS. PATIENT IS TURNED USING WEDGE AND PILLOW TO OFFLOAD PATIENT FROM PRESSURE AREAS. ALL TUBING AND WIRES POSITIONED AWAY FROM DIRECT SKIN CONTACT. SCD'S IN PLACE TO BILATERAL LEGS. HEELS OFFLOADED USING PILLOWS. WILL REPOSITION Q2H AND PRN. BED IN LOWEST POSITION, SIDE RAILS UP X3.
[2020-07-03] MEDS: FAMOTIDINE (10MG/ML) 2ML VL IV SCH (21:26)
--- NOTE | 2020-07-03 21:28 | NUR ---
AT BEDSIDE AT BEDSIDE WITH PATIENT.
[2020-07-04] VITALS (94 sets, daily range): BP systolic 84–137; BP diastolic 54–86
[2020-07-04] MEDS: FUROSEMIDE INJECTION 100 MG in D5W 5% 100 ML IV SCH (01:03)
--- NOTE | 2020-07-04 04:45 | NUR ---
AM CARE COMPLETE BED BATH AND LINEN CHANGE PROVIDED TO PATIENT. PATIENT CLEANED USING CHG WIPES. NEW GOWN AND COMPLETE LINEN CHANGE PROVIDED TO PATIENT. ALL SUCTION TUBING AND CANISTERS CHANGED. ORAL CARE PROVIDED, PATIENT TOLERATED WELL.
[2020-07-04 04:56] LABS: Basophils # (auto) 0 10 ^3/uL (0-0.2); Eosinophils # (auto) 0 10 ^3/uL (0-0.8); Hematocrit 41.9 % (41.0-53.0); Hemoglobin 13.6 g/dL (13.5-17.5); Lymphocytes # (auto) 0.5 10 ^3/uL (0.4-5.4); Lymphocytes % (auto) 4.4 % (10.0-50.0); Mean Corpuscular Hgb Conc. 32.3 g/dL (32.0-36.0); Monocytes # (auto) 1.5 10 ^3/uL (0-1.3); Monocytes % (auto) 12.5 % (0.0-12.0)
[2020-07-04 04:58] LABS: Basophils % (auto) 0.2 % (0.0-2.0); Eosinophils % (auto) 0.1 % (0.0-7.0); Mean Corpuscular Hemoglobin 26.6 pg (28.0-32.0); Mean Corpuscular Volume 82.3 fL (80.0-100.0); Neutrophils % (auto) 82.8 % (37.0-80.0); Nucleated Red Blood Cells % 0.3 %; Platelet Count (auto) 170 10^3/uL (140-450); Red Blood Cells 5.09 10^6/uL (4.5-5.90); White Blood Cell 12.1 10^3/uL (4.4-10.8)
[2020-07-04 05:02] LABS: Red Cell Distribution Width 20.7 % (11.8-14.3)
[2020-07-04 05:11] LABS: Potassium 3.9 mmol/L (3.5-5.1)
[2020-07-04 05:23] LABS: Albumin 1.8 g/dL (3.4-5.0); BUN/Creatinine Ratio 18.6; Calcium 6.1 mg/dL (8.5-10.1); Total Protein 5.2 g/dL (6.4-8.2)
[2020-07-04] MEDS: PHENYLEPHRINE IV 250 ML IV SCH ×3 (05:28→22:18)
[2020-07-04] MEDS: ACCU-CHEK COMFORT CURVE STRIP VI SCH ×7 (05:46→22:44)
[2020-07-04] MEDS: HYDROCORTISONE SOD SUCC 100 MG/2ML INJ VIAL IV SCH ×4 (05:46→21:50)
[2020-07-04] MEDS: InsuLIN REG 1unit/0.01ml Soln (100units/ml) SC SCH ×2 (05:48→12:00)
[2020-07-04] MEDS: SODIUM BICARBONATE 50ML VIAL 100 ML in SOD CHL 0.45% 1,000 ML IV SCH ×2 (06:47→17:45)
--- NOTE | 2020-07-04 07:34 | NUR ---
CLOSING PATIENT REMAINS SEDATED AND ON THE VENT. CURRENT MEDS RUNNING: FENT @50MCG/HR, VERSED AT 1MG/HR, LEVO AT 9MCG/MIN, LASIX AT 6.6ML/HR AND 0.45NACHL WITH 2 AMPS OF BICARB AT 100ML/HR. CARE ENDORSED TO MORNING RN ANGELIC TO ASSUME CARE OF PATIENT.
[2020-07-04] MEDS ORDERED: DEXTROSE (50%) 50ML SYRG IV PRN (09:00)
[2020-07-04] MEDS ORDERED: cefTRIAXone 1GM/50ML D5W 50 ML IV ONE (09:30)
[2020-07-04] MEDS: SODIUM CHLOR 0.9% PF (SALINE LOCK) 10ML VIAL/SYR IV SCH ×2 (10:00→21:25)
[2020-07-04] MEDS: NYSTATIN TOPICAL POWDER 15GM TOP SCH ×2 (10:00→21:26)
[2020-07-04] MEDS: ENOXAPARIN SOD 150 MG/1 ML SYRINGE SC SCH (10:00)
[2020-07-04] MEDS: MEROPENEM 500MG IVPB 50 ML IV SCH ×2 (10:00→21:26)
[2020-07-04] MEDS: PROPOFOL 100 ML IV SCH (10:06)
--- NOTE | 2020-07-04 10:22 | NUR ---
Sedation vacation done pt opening eyes to name ,and mild shake .Pupils between 2 and 3 briskly reactive Addendum: 07/04/20 at 1624 by ANGELIC ERIC RN RN 1200 pt put back on minimal sedation as before 1400 Dialysis catheter inserted by Dr Radha MERCER done post and later a bigger size #20
[2020-07-04] MEDS: InsuLIN R (HUMAN) 100 UNITS in SODIUM CHL 0.9% 99 ML IV SCH ×2 (11:00→22:58)
[2020-07-04] MEDS: LINEZOLID 600MG/300ML 300 ML IV SCH (12:00)
[2020-07-04] MEDS ORDERED: SODIUM CHL 0.9% 1000 ML BAG XX ONE (13:15)
--- NOTE | 2020-07-04 15:14 | NUR ---
assessment Patient is a 70 year old male who is on a vent in ICU.Per patients ex Yuly prior to admission patient lived home alone and was independent. Patients PCP is Dr Casey in [place]. Patient is here visiting his son. Patient resides in [place]. Patient will return home to [place] once medically stable. Patient has an advanced directive and POA. I informed Yuly patients post discharge needs to be determined after extubation. I will continue to monitor and follow up as appropriate for any post discharge needs. Yuly verbalized understanding. Addendum: 07/04/20 at 1520 by Tana MUNSON Amended: Links added.
[2020-07-04] MEDS: MIDAZOLAM DRIP 50 mg/50mL 50 ML IV SCH ×3 (17:30→20:59)
--- NOTE | 2020-07-04 20:00 | NUR ---
OPENING NOTE REPORT RECEIVED FROM DAYAN ATWOOD. RECEIVED ORALLY INTUBATED PATIENT ETT 7.5 AND 27 @ THE LIP. AC SETTINGS: RATE 18, TV 700, FIO2 30%, PEEP 5. PATIENT CONNECTED TO CONTINUOUS BEDSIDE MONITORS, HEART RATE IN 60'S AND PATIENT IS IN NORMAL SINUS RHYTHM WITH OCCASIONAL PAC'S. NGT TUBE TO RIGHT NARE IS CLAMPED. NO OUTPUT NOTED IN CANISTER. PLACEMENT VERIFIED VIA AUSCULTATION. RESIDUAL CHECKED AND APPROXIMATELY 10ML OF GASTRIC CONTENT REMOVED AND REPLACED. ABDOMEN IS LARGE AND ROUND WITH HYPOACTIVE BOWEL SOUNDS NOTED. KIM DRAINING CLEAR YELLOW URINE TO GRAVITY. RIGHT UPPER ARM PICC LINE TRIPLE LUMEN CATH RUNNING: FENTANYL AT 50MCG/HR, VERSED AT 1MG/HR, LEVOPHED AT 12MCG/MIN, LASIX AT 6ML/HR AND NACHL 0.45% WITH SODIUM BICAB 100ML AT 100ML/HR. LASIX GTT ORDER WAS DISCONTINUED. LASIX GTT STOPPED AT THIS TIME. MULTIPLE SKIN INTEGRITY ISSUES NOTED: OPEN DTI TO COCCYX WITH SEROUS DRAINAGE, RIGHT AND LEFT GROIN INTERTRIGO, LEFT PLANTAR GREAT TOE DFU, RIGHT GREAT TOE DFU, AND LEFT HIP AREA OF ECCHYMOSIS. PATIENT IS TURNED USING WEDGE AND PILLOW TO OFFLOAD PATIENT FROM PRESSURE AREAS. ALL TUBING AND WIRES POSITIONED AWAY FROM DIRECT SKIN CONTACT. SCD'S IN PLACE TO BILATERAL LEGS. HEELS OFFLOADED USING PILLOWS. WILL REPOSITION Q2H AND PRN. BED IN LOWEST POSITION, SIDE RAILS UP X3.
[2020-07-04] MEDS: FAMOTIDINE (10MG/ML) 2ML VL IV SCH (21:26)
--- NOTE | 2020-07-04 21:33 | NUR ---
AT BEDSIDE AT BEDSIDE. NEW VERBAL ORDER TO CHANGE SOLU-CORTEF 50MG IV FROM Q6H TO Q8H. ORDER READ BACK AND VERIFIED. WILL CARRY OUT ORDER.
[2020-07-04] MEDS ORDERED: InsuLIN REG 1unit/0.01ml Soln (100units/ml) ONE (22:53)
--- NOTE | 2020-07-04 23:04 | NUR ---
VENT SETTING RT CHANGED SETTING NEW SETTINGS: AC RATE 20 TV 600 FIO2 30% PEEP 5
[2020-07-05] VITALS (95 sets, daily range): BP systolic 82–128; BP diastolic 51–96
[2020-07-05] MEDS: LINEZOLID 600MG/300ML 300 ML IV SCH ×2 (00:01→13:26)
[2020-07-05] MEDS: ACCU-CHEK COMFORT CURVE STRIP VI SCH ×16 (00:02→22:30)
[2020-07-05] MEDS: fentaNYL Drip 2500mCg/250mlNS 250 ML IV SCH ×2 (01:41→12:52)
--- NOTE | 2020-07-05 02:45 | NUR ---
AM CARE PATIENT GIVEN COMPLETE BED BATH AND LINEN CHANGE. CHG WIPES AND WARM SOAPY WASH CLOTH USED TO CLEAN PATIENT. COMPLETE LINEN AND GOWN CHANGE PROVIDED TO PATIENT. ALL SUCTION CANISTERS AND TUBING REPLACED.
[2020-07-05] MEDS ORDERED: InsuLIN R (HUMAN) 100 UNITS in SODIUM CHL 0.9% 99 ML IV SCH (03:10)
[2020-07-05] MEDS: InsuLIN R (HUMAN) 100 UNITS in SODIUM CHL 0.9% 99 ML IV SCH ×2 (03:10→19:51)
[2020-07-05] MEDS ORDERED: DEXTROSE (50%) 50ML SYRG IV PRN ×2 (03:15→03:30)
[2020-07-05] MEDS ORDERED: INSULIN LANTUS (GLARGINE) 1 /0.01ml (100units/ml) SC ONE ×2 (03:15→03:30)
--- NOTE | 2020-07-05 03:35 | NUR ---
INSULIN GTT PATIENT 0300 BLOOD GLUCOSE WAS 222. BLOOD GLUCOSE FROM 0130 WAS 234. PER PROTOCOL, ALGORITHM WAS CHANGED TO ALGORITHM #3. PER NEW ALGORITHM, INSULIN GTT NOW RUNNING AT 6U/HR PER SCALE. WILL CONTINUE TO CHECK Q90 MIN PER PROTOCOL.
[2020-07-05] MEDS: SODIUM BICARBONATE 50ML VIAL 100 ML in SOD CHL 0.45% 1,000 ML IV SCH ×2 (04:41→17:00)
[2020-07-05] MEDS: NOREPINEPHRINE 8 MG/250ML KIT 250 ML IV SCH ×2 (04:51→21:00)
--- NOTE | 2020-07-05 04:59 | NUR ---
AM LABS SENT
[2020-07-05 05:15] LABS: Basophils # (auto) 0 10 ^3/uL (0-0.2); Eosinophils # (auto) 0 10 ^3/uL (0-0.8); Hemoglobin 14.5 g/dL (13.5-17.5); Mean Corpuscular Hemoglobin 26.5 pg (28.0-32.0); Monocytes # (auto) 2.2 10 ^3/uL (0-1.3)
[2020-07-05 05:17] LABS: Eosinophils % (auto) 0.1 % (0.0-7.0); Lymphocytes # (auto) 0.9 10 ^3/uL (0.4-5.4); Lymphocytes % (auto) 6.3 % (10.0-50.0); Mean Corpuscular Hgb Conc. 32.2 g/dL (32.0-36.0); Mean Corpuscular Volume 82.3 fL (80.0-100.0); Monocytes % (auto) 15.6 % (0.0-12.0); Neutrophils # (auto) 11.2 10 ^3/uL (1.6-8.6); Platelet Count (auto) 186 10^3/uL (140-450); Red Blood Cells 5.47 10^6/uL (4.5-5.90); Red Cell Distribution Width 19.8 % (11.8-14.3); White Blood Cell 14.4 10^3/uL (4.4-10.8)
[2020-07-05] MEDS: HYDROCORTISONE SOD SUCC 100 MG/2ML INJ VIAL IV SCH ×3 (06:12→21:46)
[2020-07-05] MEDS: PHENYLEPHRINE IV 250 ML IV SCH ×3 (06:26→23:18)
[2020-07-05 07:09] LABS: Albumin 1.8 g/dL (3.4-5.0); BUN/Creatinine Ratio 23.3; Calcium 6.1 mg/dL (8.5-10.1); Potassium 3.4 mmol/L (3.5-5.1)
[2020-07-05 07:12] LABS: Bilirubin, Total 1.1 mg/dL (0.2-1.0); Total Protein 5.6 g/dL (6.4-8.2)
--- NOTE | 2020-07-05 07:25 | NUR ---
CLOSING REPORT ENDORSED TO AM SHIFT STACEY VALERO TO ASSUME CARE OF PATIENT.
[2020-07-05] MEDS: PROPOFOL 100 ML IV SCH (08:15)
[2020-07-05] MEDS ORDERED: cefTRIAXone 1GM/50ML D5W 50 ML IV SCH (09:00)
--- NOTE | 2020-07-05 09:00 | NUR ---
Cooling Measures applied. Patient currently has temp of 100.0 , cooling measures in place.
--- NOTE | 2020-07-05 09:30 | NUR ---
Family updated on pt status Family of EVENS KAPADIA updated on patient's status and condition. All questions and concerns addressed. Payal verbalized understanding.
[2020-07-05] MEDS: SODIUM CHLOR 0.9% PF (SALINE LOCK) 10ML VIAL/SYR IV SCH ×2 (10:00→21:46)
[2020-07-05] MEDS: INSULIN LANTUS (GLARGINE) 1 /0.01ml (100units/ml) SC SCH (10:00)
[2020-07-05] MEDS ORDERED: INSULIN LANTUS (GLARGINE) 1 /0.01ml (100units/ml) SC SCH (10:00)
--- NOTE | 2020-07-05 10:00 | NUR ---
MD ROUNDS DR. ANGULO UPDATED ON PATIENTS STATUS. SEE NEW ORDERS.
[2020-07-05] MEDS: MEROPENEM 500MG IVPB 50 ML IV SCH ×2 (10:49→21:46)
[2020-07-05] MEDS: ENOXAPARIN SOD 150 MG/1 ML SYRINGE SC SCH (10:49)
[2020-07-05] MEDS: NYSTATIN TOPICAL POWDER 15GM TOP SCH ×2 (10:50→21:47)
--- NOTE | 2020-07-05 11:13 | NUR ---
Nutrition Followup Note Wt: 151.8 kg Pt`s intubated sedated when rounded this am. per records pt with PNA. pt is currently NPO Est Energy needs ABW 121 [id number] kcals (17-20 kcal/kgABW), Est Protein needs: 121-133 gms/day (1.0-1.1 gm/kgABW). Will continue to monitor and reassess prn. Labs: BUN 129 H CREAT 5.54 H GLU 288 H ALB 1.8 L BM: Pt has no BM reported per RN doc Skin: BS 10 high risk, full details in home care attendant note PES: Altered nutrition related lab values r.t current chronic medial condition aeb elev RFT A1C hyperglycemia Decreased nutrient needs r/t adiposity aeb pt`s high BMI of 41.1 kgm Impaired swallowing r.t current medical condition aeb pt`s intubated sedated with NPO Comments Will continue to monitor NPO status, skin status, pertinent labs and weight trends. Will f/u in 2-3 days. Rec: 1) advance diet as medically feasible. 2) consider EN support with Glucerna @ 70 ml/hr per MD approval. 3) continue current plan of care
--- NOTE | 2020-07-05 11:56 | NUR ---
DAUGHTER FAXED OVER LEGAL FORMS PATIENT IS UNABLE TO MAKE ANY DECISIONS AND PATIENT WITH IN THE PROCESS OF SELLING. FORMS RECEIVED. PAGED TO NOTIFY OF FORM. MD TO LOOK OVER PAPERWORK. Addendum: 07/05/20 at 1200 by Tsering Stallworth RN COPY OF POA TO BE FAXED OVER TO UNIT BY MAYTE CARR PER REQUEST.
--- NOTE | 2020-07-05 19:33 | NUR ---
ADMITTED ON 06/29/2020. FOUND DOWN BY FAMILY. HISTORY OF TAKING MARIJUANA EDIBLES. + CANNIBIS ON ADMISSION. DEVELOPED ARF. MENDEZ PLACED YESTERDAY , FIRST DIALYSIS YESTERDAY. 3 LITERS OFF. PLAN FOR DIALYSIS TOMORROW AM. CODE STATUS: CHEM CODE. ORALLY INTUBATED. RIGHT NARE NGT CLAMPED. + GAG AND COUGH. JAY. REMAINS IN ATRIAL FIB SINCE 0214 THIS AM. CONTROLLED RATE OF 100-105. KIM IN PLACE DRAINING CLOUDY YELLOW LIQUID TO DOWN DRAIN BAG. BICARB LEVEL 28.2. ON 10/26 NS WITH 2 AMPS OF NA BICARB AT 100CC/HR. MOVES EXTREMITIES SLIGHTLY. ON INSULIN DRIP.ALGORRHYTHM #3. SEDATION: FENTANYL. SBP SUPPORT: LEVOPHED. IV ACCESS NATASHA PICC LINE. STILL NEED A STOOL SPECIMEN. ON ANTIBIOTICS. TEMP BEING MONITORED BY RECTAL TEMP PROBE.
--- NOTE | 2020-07-05 20:30 | NUR ---
OPENS EYES BRIEFLY . SPONTANEOUS COUGHING. FACE IS RED. MENDEZ HAS OOZED A GOOD AMOUNT OF BLOOD.ABDOMEN ROUND, LARGE, AND SOFT. LARGE URINE OUTPUT. PICC LINE DRESSING CLEAN, DRY AND SECURE. ATRIAL FIB RATE 100 TO 112.
[2020-07-05] MEDS: FAMOTIDINE (10MG/ML) 2ML VL IV SCH (22:00)
--- NOTE | 2020-07-05 22:00 | NUR ---
REPOSITIONED. ORAL CARE DONE. NO CHANGE IN HEART RHYTHM. SBP STABLE, UNABLE TO WEAN DOWN THE LEVOPHED
[2020-07-06] VITALS (93 sets, daily range): BP systolic 85–120; BP diastolic 50–91
--- NOTE | 2020-07-06 | NUR ---
REMAINS ON Q 90 MINUTE ACCUCHECKS. INSULIN DRIP HAS BEEN BETWEEN 4-5 UNITS/HR. FAN ON PATIENT FOR SLIGHTLY ELEVATED TEMPERATURE. ORAL TEMP COMPARED TO RECTAL TEMP. RESULT WAS COMPARABLE.
[2020-07-06] MEDS: ACCU-CHEK COMFORT CURVE STRIP VI SCH ×12 (00:25→17:14)
[2020-07-06] MEDS: LINEZOLID 600MG/300ML 300 ML IV SCH ×2 (00:25→13:27)
--- NOTE | 2020-07-06 02:00 | NUR ---
REPOSITIONED TO BACK. ORAL CARE DONE. PATIENT GRIMACES, MOVES EXTREMITIES WHEN I AM WORKING WITH HIM. ATRIAL FIB RATE RANGE 100-112. NO ECTOPY. TEMP 100. ICE BAG TO BACK OF NECK. FAN ON.
[2020-07-06] MEDS: SODIUM BICARBONATE 50ML VIAL 100 ML in SOD CHL 0.45% 1,000 ML IV SCH (03:06)
[2020-07-06] MEDS: fentaNYL Drip 2500mCg/250mlNS 250 ML IV SCH (03:20)
--- NOTE | 2020-07-06 03:30 | NUR ---
DESATURATION TO 75% WITHOUT PROVACATION. SUCTIONED, LAVAGED X 2 FOR A MODERATE AMOUNT OF WHITE SECRETIONS. INITIALLY BROUGHT THE O2 SAT UP TO 90%. Addendum: 07/06/20 at 0427 by ASHLEY TRINIDAD RN WRONG PATIENT
--- NOTE | 2020-07-06 05:00 | NUR ---
CHG BATH AND PARTIAL LINEN CHANGE. PATIENT GRIMACES, MOVES ARMS WHEN SUCTIONING. BILATERAL MITTENS A GOOD IDEA. STRONG. ATRIAL FIB RATE 96-112.NO ECTOPY.
[2020-07-06] MEDS: HYDROCORTISONE SOD SUCC 100 MG/2ML INJ VIAL IV SCH ×2 (05:48→13:47)
[2020-07-06] MEDS: PROPOFOL 100 ML IV SCH (06:24)
[2020-07-06] MEDS ORDERED: SODIUM CHL 0.9% 1000 ML BAG XX ONE (07:00)
[2020-07-06] MEDS: PHENYLEPHRINE IV 250 ML IV SCH ×2 (07:38→15:31)
--- NOTE | 2020-07-06 08:19 | NUR ---
MD ROUNDS DR. ANGULO AT BEDSIDE. UPDATED ON PATIENTS STATUS. MD AWARE OF DAUGHTER UNABLE TO PROVIDE COPY OF POA. MD STATING HE IS NOT WILLING TO HAVE ANY TYPE OF LETTER NOTARIZED PATIENTS CARE IS PRIORITY AT THIS TIME.
[2020-07-06 09:45] LABS: Basophils # (auto) 0.1 10 ^3/uL (0-0.2); Basophils % (auto) 0.4 % (0.0-2.0); Eosinophils # (auto) 0 10 ^3/uL (0-0.8); Hematocrit 48.9 % (41.0-53.0); Hemoglobin 16.2 g/dL (13.5-17.5); Lymphocytes # (auto) 0.6 10 ^3/uL (0.4-5.4); Lymphocytes % (auto) 3.1 % (10.0-50.0); Mean Corpuscular Hemoglobin 27.4 pg (28.0-32.0); Mean Corpuscular Hgb Conc. 33.1 g/dL (32.0-36.0); Mean Corpuscular Volume 82.8 fL (80.0-100.0); Monocytes # (auto) 1.9 10 ^3/uL (0-1.3); Monocytes % (auto) 10.1 % (0.0-12.0); Neutrophils # (auto) 16.7 10 ^3/uL (1.6-8.6); Neutrophils % (auto) 86.4 % (37.0-80.0); Nucleated Red Blood Cells % 0.1 %; Platelet Count (auto) 193 10^3/uL (140-450); Red Blood Cells 5.91 10^6/uL (4.5-5.90); White Blood Cell 19.3 10^3/uL (4.4-10.8)
--- NOTE | 2020-07-06 09:51 | NUR ---
Dialysis nurse at bedside Medications held until treatment completed.
[2020-07-06] MEDS: NYSTATIN TOPICAL POWDER 15GM TOP SCH ×2 (10:00→22:00)
[2020-07-06 10:04] LABS: Calcium 6.7 mg/dL (8.5-10.1); Potassium 3.3 mmol/L (3.5-5.1)
[2020-07-06 10:07] LABS: BUN/Creatinine Ratio 29.1; Bilirubin, Total 1.4 mg/dL (0.2-1.0)
--- NOTE | 2020-07-06 11:55 | NUR ---
DIALYSIS COMPLETED, NO FLUIDS REMOVED. POST DIALYSIS BP. VSS.
--- NOTE | 2020-07-06 12:15 | NUR ---
NEW SKIN ISSUE: Wound care notified by bedside nurse that new skin issue noted to patient's R nare and Rt lateral ear. Bedside nurse took photograph of patient's new skin issue upon discovery for reference. Patient is still intubated,mechanically ventilated in ICU Rm. 107. Patient is having dialysis at bedside. Patient's developed 0.5x0.5cm mucosal ulcer to R nare. RN Shonna repositioned patient's NGT. Patient's Rt lateral ear also noted with 0.8x0.4 cm dry intact scabbed abrasion, wounds are clean and dry, left open to air. Patient tolerated well, will continue to monitor. Full skin/wound reevaluation on Wednesday07/08/20.
[2020-07-06] MEDS ORDERED: D5W/SOD CHL 0.45% 1,000 ML IV ONE (13:15)
--- NOTE | 2020-07-06 13:15 | NUR ---
Aircraft Instrument Tester Dr. Camacho at bedside. See new orders.
[2020-07-06] MEDS: SODIUM CHLOR 0.9% PF (SALINE LOCK) 10ML VIAL/SYR IV SCH ×2 (13:27→22:00)
[2020-07-06] MEDS: ENOXAPARIN SOD 150 MG/1 ML SYRINGE SC SCH (13:27)
[2020-07-06] MEDS: INSULIN LANTUS (GLARGINE) 1 /0.01ml (100units/ml) SC SCH (13:30)
--- NOTE | 2020-07-06 16:25 | NUR ---
Java Developer With Security Clearance at bedside updated on patients status. New orders in place. made vent. changes at bedside to Tv 500. Radha paged to notify. aware of Levophed at 12mcg at this time. Cpap in a.m. Addendum: 07/06/20 at 1836 by Tsering Stallworth RN Verified with md if ok to continue with cpap if patient remains on 12mcg of Levo. stated yes, Precedex received.
[2020-07-06] MEDS: MIDAZOLAM DRIP 50 mg/50mL 50 ML IV SCH (16:26)
[2020-07-06] MEDS ORDERED: DEXTROSE (50%) 50ML SYRG IV PRN (16:30)
[2020-07-06] MEDS: MEROPENEM 500MG IVPB 50 ML IV SCH ×2 (16:53→22:00)
[2020-07-06] MEDS ORDERED: POTASSIUM CHL 20MEQ/100ML 100 ML IV ONE ×2 (17:00)
[2020-07-06] MEDS: InsuLIN REG 1unit/0.01ml Soln (100units/ml) SC SCH (17:14)
--- NOTE | 2020-07-06 19:45 | NUR ---
ADMITTED ON 06/29/2020. FOUND DOWN BY FAMILY. HISTORY OF TAKING MARIJUANA EDIBLES. + CANNIBIS ON ADMISSION. DEVELOPED ARF. MENDEZ PLACED 07/04/20. FIRST DIALYSIS 07/04/20. 3 LITERS OFF FIRST TIME, NO FLUIDS TAKEN OFF TODAY. CODE STATUS: CHEM CODE. ORALLY INTUBATED. RIGHT NARE NGT CLAMPED. + GAG AND COUGH. JAY. REMAINS IN ATRIAL FIB SINCE 02107/05/20. CONTROLLED RATE OF 96-106. KIM IN PLACE DRAINING CLEAR YELLOW LIQUID TO DOWN DRAIN BAG. BICARB LEVEL 29.6. DCD 1/2 NS WITH 2 AMPS OF NA BICARB AT 100CC/HR AND CHANGED IT TO D5 1/2NS AT 100CC/HR. MOVES EXTREMITIES SLIGHTLY. INSULIN DRIP DCD AND PLACED ON MODERATE SCALE COVERAGE WITH ACCUCHECKS Q 6. SEDATION: FENTANYL. SBP SUPPORT: LEVOPHED. IV ACCESS NATASHA PICC LINE. STILL NEED A STOOL SPECIMEN. ON ANTIBIOTICS. TEMP BEING MONITORED BY RECTAL TEMP PROBE.
[2020-07-06] MEDS: NOREPINEPHRINE 8 MG/250ML KIT 250 ML IV SCH (19:55)
--- NOTE | 2020-07-06 20:00 | NUR ---
MENDEZ CATH SITE HAS OOZED SOME BLOOD. NOT MUCH LAST NIGHT. PUPILS SMALL AND REACTIVE. ORAL CARE: BLOOD IN MOUTH . UNABLE TO SEE WHERE IT IS COMING FROM. THERE IS DRY AREAS ON TONGUE. LUNGS CLEAR. ATRIAL FIB/FLUTTER RATE 96-106. NO FEVER. ABDOMEN SOFT, ROUND AND NOT SOFT IT WAS. PANUS SKIN IS RED. LARGE SCALY DRY SCROTUM. SKIN IN FOLDS IS RED. ALL PULSES PALPABLE. NO RESIDUAL FROM THE NGT. WHAT DOES COME THROUGH THE NGT IS GREEN. ONE DARK SCAB ON EACH LARGE TOE. DTI ON BUTTOCKS (OPEN WOUND) COVERED BY AN OPTIFOAM RECENTLY PLACED. SEROUS DRNG. KIM DRAINING YELLOW, LIGHT PATEL CLEAR LIQUID WITH SEDIMENT IN GOOD AMOUNTS. NOTED BP MEASUREMENTS ON Q 10 MINUTES, SWITCHED TO Q 15 MINUTES.
[2020-07-06] MEDS: FAMOTIDINE (10MG/ML) 2ML VL IV SCH (22:00)
--- NOTE | 2020-07-06 22:00 | NUR ---
VERY AWAKE, TRIGGERING THE VENTILATOR.INCREASED THE FENTANYL. ALSO HIS RR WAS 30. NOW HIS RR IS 20 AFTER THE INCREASE IN FENTANYL.
[2020-07-07] VITALS (79 sets, daily range): BP systolic 86–125; BP diastolic 52–87
--- NOTE | 2020-07-07 01:00 | NUR ---
INCREASED FENTANYL. PATIENT WAKES UP EASILY. ATRIAL FIB/FLUTTER RATE RANGE 95-101. VSS. GOOD URINE OUTPUT.
--- NOTE | 2020-07-07 02:00 | NUR ---
REPOSITIONED. SUCTIONED ETT, ORAL SUCTION. ATRIAL FIB/FLUTTER RATE 96-108. NO ECTOPY.
--- NOTE | 2020-07-07 04:15 | NUR ---
CHG BATH. MENDEZ DRESSING CHANGE. SHAVED. BOOSTED UP IN BED.
[2020-07-07 04:56] LABS: Hematocrit 49.9 % (41.0-53.0); Hemoglobin 15.9 g/dL (13.5-17.5); Mean Corpuscular Hemoglobin 26.8 pg (28.0-32.0)
[2020-07-07 04:59] LABS: Mean Corpuscular Hgb Conc. 31.7 g/dL (32.0-36.0); Mean Corpuscular Volume 84.6 fL (80.0-100.0); Platelet Count (auto) 237 10^3/uL (140-450); Red Blood Cells 5.91 10^6/uL (4.5-5.90); Red Cell Distribution Width 19.8 % (11.8-14.3); White Blood Cell 20.5 10^3/uL (4.4-10.8)
[2020-07-07 05:09] LABS: Band Neutrophils % (manual) 0; Basophils % (manual) 0 (0.0-2.0); Blast Cells 0; Eosinophils % (manual) 0 (0-7); Metamyelocytes % 0; Myelocytes % 0; Promyelocytes % 0; Reactive Lymphocytes 0
[2020-07-07 05:12] LABS: BUN/Creatinine Ratio 28.7; Calcium 7.2 mg/dL (8.5-10.1); Potassium 3.5 mmol/L (3.5-5.1)
[2020-07-07 05:15] LABS: Bilirubin, Total 1.3 mg/dL (0.2-1.0); Total Protein 5.7 g/dL (6.4-8.2)
[2020-07-07] MEDS: ACCU-CHEK COMFORT CURVE STRIP VI SCH ×4 (05:37→18:06)
[2020-07-07] MEDS: fentaNYL Drip 2500mCg/250mlNS 250 ML IV SCH (05:37)
--- NOTE | 2020-07-07 05:44 | NUR ---
AM LABS DRAWN
[2020-07-07 05:47] LABS: Lymphocytes % (manual) 7 (10.0-50.0); Monocytes % (manual) 8 (0-12)
--- NOTE | 2020-07-07 06:00 | NUR ---
VSS. CXR DONE
[2020-07-07] MEDS: InsuLIN REG 1unit/0.01ml Soln (100units/ml) SC SCH ×4 (06:01→18:10)
--- NOTE | 2020-07-07 07:15 | NUR ---
Assumed care of pt., received per STACEY Haskins. No distress noted, pt. intubated and vented, reading controlled A-fib on monitor, will cont.to monitor for any changes, plan to CPAP today, will cont.to monitor for any changes, assessment ongoing.
[2020-07-07] MEDS: DexMEDEtomidine 400 MCG in D5W 5% 96 ML IV SCH ×2 (07:59→08:01)
[2020-07-07] MEDS: PHENYLEPHRINE IV 250 ML IV SCH ×3 (07:59→15:48)
[2020-07-07] MEDS: InsuLIN R (HUMAN) 100 UNITS in SODIUM CHL 0.9% 99 ML IV SCH (08:00)
[2020-07-07] MEDS: PROPOFOL 100 ML IV SCH (08:01)
--- NOTE | 2020-07-07 09:50 | NUR ---
Respiratory note: PT PLACED ON CPAP AT 0910 PER DRS ORDERS. PT TOLERATING CPAP WELL. ABG DRAWN, RESULTS AVAILABLE IN [facility]. WEANING PARAMETERS ARE FOLLOWS: VC 1863, NIF 18, RSBI 66, LEAK 400.WILL CALL DR DAWKINS TO REPORT ABG AND WEANING PARAMETER RESULTS.ALARMS VERIFIED AND AUDIBLE. NO VENT CHANGES ORDERED AT THIS TIME.WILL CONTINUE TO MONITOR.
--- NOTE | 2020-07-07 10:38 | NUR ---
Dr. Schroeder paged for consult on pt. to possible extubate, pt. ABG completed, pt. on CPAP now since 8am, will cont.to monitor for any changes, assessment ongoing.
[2020-07-07] MEDS: MEROPENEM 500MG IVPB 50 ML IV SCH ×2 (10:45→22:00)
[2020-07-07] MEDS: ENOXAPARIN SOD 150 MG/1 ML SYRINGE SC SCH (10:45)
[2020-07-07] MEDS: SODIUM CHLOR 0.9% PF (SALINE LOCK) 10ML VIAL/SYR IV SCH ×2 (10:45→22:00)
[2020-07-07] MEDS: NYSTATIN TOPICAL POWDER 15GM TOP SCH ×2 (10:45→22:00)
--- NOTE | 2020-07-07 10:55 | NUR ---
Orders to extubate, RT at bedside, will cont.to monitor for any changes, assessment ongoing.
--- NOTE | 2020-07-07 11:00 | NUR ---
Respiratory note: PT EXTUBATED PER DR LUNDBERG ORDER. NO STRIDOR NOTED POST EXTUBATION. PT PLACED ON 35% COOL MIST AEROSOL MASK. PT TOLERATING CHANGE WELL. RN BONNY AWARE OF EXTUBATION.
--- NOTE | 2020-07-07 11:39 | NUR ---
Nutrition Followup Notes Wt: 144.0 kg Pt was sleeping when rounded this am. Pt`s now on CPAP, off sedation, NPO scheduled for extubation per RN . Per RN pt is doing well. Est Energy needs ABW 121 [id number] kcals (17-20 kcal/kgABW), Est Protein needs: 121-133 gms/day (1.0-1.1 gm/kgABW). Will continue to monitor and reassess prn. Labs: BUN 96 H CREAT 3.34 H, GFR 20 L, GLU 228 H, ALB 2.0 L BM: Pt had 1 BM reported on 07/01 per RN doc Skin: BS 14 mod risk, full details in adult day care worker note PES: 1) Altered nutrition related lab values r.t current chronic medial condition aeb elev RFT A1C hyperglycemia 2) Decreased nutrient needs r/t adiposity aeb pt`s high BMI of 41.1 kgm 3) Impaired swallowing r.t current medical condition aeb pt`s intubated sedated with NPO Comments Will continue to monitor NPO status, skin status, pertinent labs and weight trends. Will f/u in 2-3 days. Rec: 1) advance diet as medically feasible. 2) consider EN support with Glucerna @ 70 ml/hr per MD approval. 3) continue current plan of care
[2020-07-07] MEDS: LINEZOLID 600MG/300ML 300 ML IV SCH ×2 (12:09)
--- NOTE | 2020-07-07 15:00 | NUR ---
pt. noted /c increasing HR, 150's A-fib, Dr. Emmanuel sheets, will cont.to monitor for any changes, call acharya in pt. reach, assessment ongoing.
--- NOTE | 2020-07-07 15:30 | NUR ---
No call back noted from Dr. Benitez, Dr. Banegas present and made aware of pt. A-fib /c RVR, new orders received, will cont.to monitor for effectiveness, call acharya in reach, assessment ongoing.
[2020-07-07] MEDS ORDERED: AMIODARONE 450mg/250ml AE 250 ML IV SCH (15:41)
[2020-07-07] MEDS ORDERED: AMIODARONE HCL 150 MG in D5W 5% 100 ML IV ONE (15:45)
--- NOTE | 2020-07-07 16:05 | NUR ---
Dr. Benitez called, updated on pt condition, new orders received, will cont.to monitor for effectiveness, call marck in reach, assessment ongoing.
[2020-07-07] MEDS: DIGOXIN (250MCG/ML) 2 ML AMPULE IV SCH ×2 (16:40→17:10)
--- NOTE | 2020-07-07 19:13 | NUR ---
No distress noted, pt. report given to STACEY Haskins. Care of pt assumed per NOC RN, day shift RN relinquished care and signed off.
--- NOTE | 2020-07-07 20:00 | NUR ---
ADMITTED ON 06/29/2020. FOUND DOWN BY FAMILY. HISTORY OF TAKING MARIJUANA EDIBLES. + CANNIBIS ON ADMISSION. DEVELOPED ARF. MENDEZ PLACED 07/04/20. FIRST DIALYSIS 07/04/20. 3 LITERS OFF FIRST TIME, NO FLUIDS TAKEN OFF YESTERDAY. CODE STATUS: CHEM CODE. ORALLY INTUBATED. RIGHT NARE NGT CLAMPED. + GAG AND COUGH. JAY. REMAINS IN ATRIAL FIB SINCE 02107/05/20. CONTROLLED RATE OF 96-106. TODAY WENT INTO AFIB RVR AND WAS PLACED ON AMIODARONE DRIP AND GIVEN DIGOXIN TOTAL OF .5. KIM IN PLACE DRAINING CLEAR YELLOW LIQUID TO DOWN DRAIN BAG. BICARB LEVEL 29.5. DCD 1/2 NS WITH 2 AMPS OF NA BICARB AT 100CC/HR AND CHANGED IT TO D5 1/2NS AT 100CC/HR YESTERDAY. MOVES EXTREMITIES WITH PROMPTING. INSULIN DRIP DCD 2 DAYS AGO. ON MODERATE SCALE COVERAGE WITH ACCUCHECKS Q 6. SBP SUPPORT: LEVOPHED. IV ACCESS NATASHA PICC LINE. STILL NEED A STOOL SPECIMEN. ON ANTIBIOTICS. TEMP BEING MONITORED BY RECTAL TEMP PROBE.
--- NOTE | 2020-07-07 20:10 | NUR ---
REPOSITIONED TO LEFT SIDE. PATIENT IS VERY STIFF. HE IS NOT ANSWERING QUESTIONS. EYES ARE OPEN. LIMITED MOVEMENT OF ARMS AND LEGS. SACRAL DRESSING SATURATED WITH SEROSANGUINOUS FLUID. OPEN WOUND CLEANSED WITH WOUND INFANT LEAD TEACHER. DRIED. AND NEW OPTIFOAM PLACED. NEW BED PAD CHANGE. ATRIAL FIB RATE RANGE 94-106. SBP SUPPORTED WITH LEVOPHED. NATASHA PICC LINE. JEREMIAH SIMMS HAS BLED AT THE SITE. THE SITE HAS SNOW ON IT. SO FAR IT IS ENCAPSULATED UNDER THE CLEAR DRESSING. [id number] . ICE BAGS APPLIED TO BOTH AXILLA AND BACK OF NECK. FACE IS RED. FAN IS ON.
[2020-07-07] MEDS: AMIODARONE 450mg/250ml AE 250 ML IV SCH (21:30)
--- NOTE | 2020-07-07 21:30 | NUR ---
AMIODARONE DRIP CHANGE TO .5 PER PROTOCOL. PANUS IS RED, NOT OPEN. SCROTUM IS ENLARGED, DRY. URINE PER KIM IS YELLOW WITH SEDIMENT.
[2020-07-07] MEDS: NOREPINEPHRINE 8 MG/250ML KIT 250 ML IV SCH (22:00)
[2020-07-07] MEDS: FAMOTIDINE (10MG/ML) 2ML VL IV SCH (22:00)
--- NOTE | 2020-07-07 22:00 | NUR ---
PATIENT REMAIN ON 28% COOL MIST. O2 SATURATION IS 96. ICE BAGS ON . TEMP IS DOWN SLIGHTLY. ATRIAL FIB RATE 86-97.
[2020-07-08] VITALS (87 sets, daily range): BP systolic 88–125; BP diastolic 60–90
--- NOTE | 2020-07-08 | NUR ---
PATIENT IS UNABLE TO TELL ME HIS NAME OR HIS DAUGHTERS BUT HE IS RESPONDING YES AND NO TO MY QUESTIONS WHICH ARE APPROPRIATE ANSWERS. REPOSITIONED TO HIS RIGHT SIDE. PERIODS OF APNEA LASTING 14 SECONDS. LUNGS CLEAR. STILL ON COOL MIST .28%. EXTREMITIES ARE STILL. GOOD URINE OUTPUT.
[2020-07-08] MEDS: LINEZOLID 600MG/300ML 300 ML IV SCH ×2 (00:03→13:52)
[2020-07-08] MEDS: ACCU-CHEK COMFORT CURVE STRIP VI SCH ×4 (00:04→18:29)
[2020-07-08] MEDS: InsuLIN REG 1unit/0.01ml Soln (100units/ml) SC SCH ×4 (00:16→18:30)
[2020-07-08] MEDS: AMIODARONE 450mg/250ml AE 250 ML IV SCH ×3 (00:27→15:53)
[2020-07-08] MEDS: PHENYLEPHRINE IV 250 ML IV SCH ×3 (01:18→17:58)
--- NOTE | 2020-07-08 01:54 | NUR ---
COOL MIST REMOVED. NASAL CANNULA 2L PLACED. O2 SATURATION 95%.
[2020-07-08] MEDS: InsuLIN R (HUMAN) 100 UNITS in SODIUM CHL 0.9% 99 ML IV SCH (03:10)
--- NOTE | 2020-07-08 03:30 | NUR ---
AM LABS DONE
--- NOTE | 2020-07-08 04:00 | NUR ---
ORAL CLEANING. STILL SOME BLOOD BETWEEN HIS TEETH AND THE ROOF OF HIS MOUTH. BIT THE TIP OF HIS TONGUE YESTERDAY DURING DIALYSIS. REPOSITIONED TO HIS LEFT SIDE. MENDEZ IS STILL OOZING BLOOD. MUMBLES SOME THINGS, BUT REMAINS UNABLE TO RESPOND TO QUESTIONS I ASK WITH WORDS. SHAKES HIS HEAD YES AND NO. COMPLETE TURN. DOES NOT HELP WITH TURNING. VERY STIFF EXTREMITIES AND NECK. LUNGS CLEAR. DOING WELL WITH THE NASAL PRONGS. HAS APNEA PERIODS. I HAVE NOTICED 3 TONIGHT. O2 SAT PROBE GOES OFF AND THE APNEA ALARM ALERTS US. ABDOMEN SOFT. ALL PULSES PALPABLE.
[2020-07-08 04:13] LABS: Red Blood Cells 6.01 10^6/uL (4.5-5.90); Red Cell Distribution Width 19.7 % (11.8-14.3)
[2020-07-08 04:15] LABS: Hematocrit 50.5 % (41.0-53.0); Hemoglobin 16.3 g/dL (13.5-17.5); Mean Corpuscular Hemoglobin 27.1 pg (28.0-32.0); Mean Corpuscular Hgb Conc. 32.2 g/dL (32.0-36.0); Platelet Count (auto) 261 10^3/uL (140-450); White Blood Cell 26.3 10^3/uL (4.4-10.8)
[2020-07-08 04:20] LABS: Basophils % (manual) 0 (0.0-2.0); Blast Cells 0; Eosinophils % (manual) 0 (0-7); Metamyelocytes % 0; Myelocytes % 0; Promyelocytes % 0; Reactive Lymphocytes 0
[2020-07-08 04:27] LABS: Potassium 3.2 mmol/L (3.5-5.1)
[2020-07-08 04:34] LABS: Albumin 2.1 g/dL (3.4-5.0); BUN/Creatinine Ratio 35.4; Bilirubin, Total 1.7 mg/dL (0.2-1.0); Calcium 7.8 mg/dL (8.5-10.1); Total Protein 6.1 g/dL (6.4-8.2)
[2020-07-08 05:19] LABS: Band Neutrophils % (manual) 3; Lymphocytes % (manual) 8 (10.0-50.0); Monocytes % (manual) 9 (0-12)
--- NOTE | 2020-07-08 06:00 | NUR ---
MENDEZ LINE DRESSING SATURATED WITH BLOOD. NEW DRESSING WITH SNOW. SLEEP APNEA. DESATURATES, APNIC PERIODS. FULL LINEN CHANGE.
--- NOTE | 2020-07-08 07:00 | NUR ---
Opening note Assumed care of patient at this time. Report received from overnight associate RN. POC reviewed. Head to toe assessment complete, see intervention spreadsheet for complete details. Received pt on 3 lts NC. Pt on levo at 13 mcg and Amiodarone at 16.66 mls. Received pt in A-fib. Other VS Stable. Dennison catheter draining to gravity. Suction and BVM at bedside. IV CDI. Bed locked and in lowest position, safety precautions maintained. Will continue with care. Addendum: 07/08/20 at 1706 by SABI SAM RN neuro assessment, pt able to recall daughters name hannah without prompting
[2020-07-08] MEDS: NOREPINEPHRINE 8 MG/250ML KIT 250 ML IV SCH (07:30)
--- NOTE | 2020-07-08 08:45 | NUR ---
pt off unit at this time for head CT. Transported with ACLS protocol.
--- NOTE | 2020-07-08 09:03 | NUR ---
Pt back to unit at this time. Pt tolerated well. VSS. PT returned to ICU continuous monitor. Will continue with care.
--- NOTE | 2020-07-08 09:40 | NUR ---
Dr. Nathan at bedside. POC reviewed. See MD note.
--- NOTE | 2020-07-08 09:45 | NUR ---
linen change/wound care Complete linen change done at this time. Wound care sacrum provided. Pt tolerated well. VSS. Bed locked and in lowest position, safety precautions in place. Will continue with care.
[2020-07-08] MEDS: MICAFUNGIN SODIUM 100 MG in SODIUM CHL 0.9% 100 ML IV SCH (10:22)
[2020-07-08] MEDS: MEROPENEM 1GM IVPB 100 ML IV SCH ×2 (10:28→21:26)
[2020-07-08] MEDS: NYSTATIN TOPICAL POWDER 15GM TOP SCH ×2 (10:28→21:26)
[2020-07-08] MEDS: SODIUM CHLOR 0.9% PF (SALINE LOCK) 10ML VIAL/SYR IV SCH ×2 (10:28→21:26)
[2020-07-08] MEDS: ENOXAPARIN SOD 150 MG/1 ML SYRINGE SC SCH (10:28)
--- NOTE | 2020-07-08 10:45 | NUR ---
Sputum Sample Respiratory culture sent per md order.
--- NOTE | 2020-07-08 10:50 | NUR ---
Saul catheter dressing changed Dressing saturated with blood. Pressure applied, SNOW applied, extra gauze applied, and bandaged. Will continue to monitor. Addendum: 07/09/20 at 0420 by MARCUS SHOEMAKER RN RN Note was supposed to be for 2249.
--- NOTE | 2020-07-08 13:42 | NUR ---
EEG COMPLETED AT BEDSIDE. PRIMARY RN LLUVIA SESAY.
--- NOTE | 2020-07-08 15:13 | NUR ---
WOUND CARE NOTE: IN TO SEE PATIENT AT THIS TIME FOR REEVALUATION. PATIENT WAS NOTED UPON ADMIT TO ICU TO HAVE EARLY DTI, WITH MASD/SKIN EROSION TO INTRAGLUTEAL SKIN. WOUND PHOTOS TAKEN AT THIS TIME FOR REFERENCE. HIS DTI IS NOW BRIGHT RED, WITH OPEN SKIN EROSION D/T MASD. PERIWOUND SKIN IS BRIGHT RED. PATIENT HAS GENERLIZED EDEMA NOTED, WITH TAUT SKIN. SKIN IS ALSO VERY MOIST FROM PERSPIRATION. ZGUARD APPLIED TO PARTIAL THICKNESS SKIN EROSION, OPTIFOAM GENTLE SACRAL DRESSING APPLIED TO UPPER SACRUM. PATIENT CONTINUES TO HAVE INTERTRIGO TO LEFT FLANK. PATIENT LEFT AND RIGHT GROIN INTERTRIGO IS RESOLVED AT THIS TIME. BILATERAL PLANTAR # 1 TOES HAVE INTACT DFU ULCERATIONS. NO S/S OF INFECTION OR DRAINAGE NOTED. LEFT OPEN TO AIR. WOUND STATS CAN BE FOUND IN WOUND ASSESSMENT ATTACHED TO THIS NOTE. RECOMMEND:FREQUENT TURN SCHEDULE Q 2 HOURS, PRN CONDITION PERMITS, WITH SIDE TO SIDE POSITIONING, AVOIDING SUPINE POSITION. PRESSURE REDISTRIBUTION USING PILLOWS/WEDGESS, CONTINUE WITH LOW AIRLOSS ICU MATTRESS, NYSTATIN POWDER OR INTERDRY AG TO SKIN FOLD AREAS WITH INTERTRIGINOUS RASH, DIETARY CONSULT, SKIN/WOUND CARE PLAN, CONTINUED MONITORING BY WOUND CARE TEAM. Addendum: 07/08/20 at 1645 by TRICIA HODGE RN RN Amended: Links added.
--- NOTE | 2020-07-08 15:24 | NUR ---
Wound care nurse at bedside to assess patient at this time.
--- NOTE | 2020-07-08 16:05 | NUR ---
Grand daughter of patient called for update. PW provided. All questions addressed a this time. Vinay asked about mesh carrier that was brought with in with patient used with lora lift. Will follow up with ER. Addendum: 07/08/20 at 1608 by SABI SAM RN wrong patient
--- NOTE | 2020-07-08 16:26 | NUR ---
Sri called for update. All questions addressed at this time.
--- NOTE | 2020-07-08 17:39 | NUR ---
Dr. Camacho at bedside. See MD note.
[2020-07-08] MEDS ORDERED: SODIUM CHLORIDE 0.9% 500 ML IV ONE (19:30)
--- NOTE | 2020-07-08 19:30 | NUR ---
Opening Shift Note Received pt lying in bed, eyes closed, easily arrousable. Bed is locked at lowest position, side rails are up. No s/s of distress noted at this time. Will continue to monitor.
[2020-07-08] MEDS: D5W 5% 1,000 ML IV SCH (20:53)
[2020-07-08] MEDS: FAMOTIDINE (10MG/ML) 2ML VL IV SCH (21:26)
--- NOTE | 2020-07-08 22:50 | NUR ---
Saul catheter dressing changed Dressing saturated with blood. Pressure applied, SNOW applied, extra gauze applied, and bandaged. Will continue to monitor.
--- NOTE | 2020-07-08 22:55 | NUR ---
Complete linen change Pt given bath, CHG wipes, and complete linen change. Pt tolerated well. Will continue to monitor
[2020-07-09] VITALS (92 sets, daily range): BP systolic 87–114; BP diastolic 49–82
[2020-07-09] MEDS: LINEZOLID 600MG/300ML 300 ML IV SCH ×2 (00:01→13:30)
[2020-07-09] MEDS: ACCU-CHEK COMFORT CURVE STRIP VI SCH ×4 (00:04→18:53)
[2020-07-09] MEDS: InsuLIN REG 1unit/0.01ml Soln (100units/ml) SC SCH ×4 (00:05→18:53)
[2020-07-09] MEDS: NOREPINEPHRINE 8 MG/250ML KIT 250 ML IV SCH (00:08)
--- NOTE | 2020-07-09 02:15 | NUR ---
Saul catheter dressing change Dressing saturated with blood. Pressure applied, SNOW applied, extra gauze applied, and bandaged. Will continue to monitor.
[2020-07-09] MEDS: PHENYLEPHRINE IV 250 ML IV SCH ×2 (02:18→10:38)
[2020-07-09] MEDS: InsuLIN R (HUMAN) 100 UNITS in SODIUM CHL 0.9% 99 ML IV SCH (03:10)
[2020-07-09 04:39] LABS: Basophils # (auto) 0 10 ^3/uL (0-0.2); Basophils % (auto) 0.1 % (0.0-2.0); Eosinophils # (auto) 0.1 10 ^3/uL (0-0.8); Eosinophils % (auto) 0.3 % (0.0-7.0); Hematocrit 49.8 % (41.0-53.0); Hemoglobin 15.2 g/dL (13.5-17.5); Lymphocytes # (auto) 1.1 10 ^3/uL (0.4-5.4); Lymphocytes % (auto) 5.2 % (10.0-50.0); Mean Corpuscular Hemoglobin 26.2 pg (28.0-32.0); Mean Corpuscular Hgb Conc. 30.6 g/dL (32.0-36.0); Mean Corpuscular Volume 85.7 fL (80.0-100.0); Monocytes # (auto) 2.3 10 ^3/uL (0-1.3); Monocytes % (auto) 10.8 % (0.0-12.0); Neutrophils % (auto) 83.6 % (37.0-80.0); Platelet Count (auto) 232 10^3/uL (140-450); Red Blood Cells 5.81 10^6/uL (4.5-5.90); White Blood Cell 21.6 10^3/uL (4.4-10.8)
[2020-07-09 04:40] LABS: Red Cell Distribution Width 20.2 % (11.8-14.3)
[2020-07-09 04:52] LABS: Albumin 1.9 g/dL (3.4-5.0); Calcium 8.2 mg/dL (8.5-10.1); Potassium 3.3 mmol/L (3.5-5.1)
[2020-07-09 04:57] LABS: BUN/Creatinine Ratio 39.2; Bilirubin, Total 1.3 mg/dL (0.2-1.0); Total Protein 5.7 g/dL (6.4-8.2)
[2020-07-09] MEDS: AMIODARONE 450mg/250ml AE 250 ML IV SCH (07:17)
--- NOTE | 2020-07-09 07:30 | NUR ---
DR GARCIA AT BEDSIDE DISCUSSED PATIENTS STATUS AND PLAN OF CARE. NEW ORDERS RECEIVED
--- NOTE | 2020-07-09 07:50 | NUR ---
DR MARK AT BEDSIDE DISCUSSED PATIENTS PLAN OF CARE. NO NEW ORDERS
[2020-07-09] MEDS ORDERED: SODIUM CHLORIDE 0.9% 1,000 ML IV ONE (08:15)
--- NOTE | 2020-07-09 09:09 | NUR ---
DR ANGULO AT BEDSIDE DISCUSSED PATIENTS STATUS AND PLAN OF CARE. NEW ORDERS RECEIVED
--- NOTE | 2020-07-09 09:27 | NUR ---
PATIENTS DAUGHTER BRUNO CALLED FOR UPDATE PROVIDED PASSWORD. UPDATED ON PATIENTS STATUS AND PLAN OF CARE.
--- NOTE | 2020-07-09 09:30 | NUR ---
Attempted PT eval. Pt is very lethargic and only opens eyes intermittently. Attempted to move pt's limbs and elevate HOB to prepare for transfer to sit at EOB but with any motion, pt grimacing in pain. CCPOT 01/30. Pt was noted to moan and hold breath with movements. With HOB elevated, pt's BP 89/61 mmHg. Spoke with nurse regarding patient's pain. Will attempt PT eval again when pt is able to tolerate better.
[2020-07-09] MEDS: NYSTATIN TOPICAL POWDER 15GM TOP SCH ×2 (10:00→22:08)
--- NOTE | 2020-07-09 10:00 | NUR ---
LOVENOX HELD PATIENT HAD BLEEDING ISSUES THROUGHOUT THE NIGHT WITH QUINTINN CATHETER. RN NOTIFIED MDS AND WAS INFORMED TO HOLD LOVENOX. POTENTIAL TO DISCONTINUE QUINTINN CATHETER TOMORROW
[2020-07-09] MEDS: SODIUM CHLOR 0.9% PF (SALINE LOCK) 10ML VIAL/SYR IV SCH ×2 (10:49→22:07)
[2020-07-09] MEDS: MICAFUNGIN SODIUM 100 MG in SODIUM CHL 0.9% 100 ML IV SCH (10:49)
[2020-07-09] MEDS: D5W 5% 1,000 ML IV SCH ×2 (10:50→18:53)
--- NOTE | 2020-07-09 12:11 | NUR ---
Nutrition Followup Notes Wt: 142.3 kg Pt was sleeping with no family at bedside when rounded this am. Pt`s now on CPAP, off sedation, Pt is NPO, pt failed a swallow eval per MD note. Pt needs another swallow eval, consider alternate nutrition if pt unable to pass swallow eval. Est Energy needs ABW 121 [id number] kcals (17-20 kcal/kgABW), Est Protein needs: 121-133 gms/day (1.0-1.1 gm/kgABW). Will continue to monitor and reassess prn. Labs: Na 157H, K 3.3L, Cl 116H, BUN 98H, Creat 2.50H, CO2 33H, GLUC 280H, Ca 8.2L, Alb 1.9L BM: Pt had 1 BM reported on 07/01 per RN doc Skin: BS 13 mod risk, full details in healthcare administration internship note PES: 1) Altered nutrition related lab values r.t current chronic medial condition aeb elev RFT A1C hyperglycemia 2) Decreased nutrient needs r/t adiposity aeb pt`s high BMI of 41.1 kgm Partially resolved, pending a swallow eval 3) Impaired swallowing r.t current medical condition aeb pt`s intubated sedated with NPO Comments Will continue to monitor NPO status, skin status, pertinent labs and weight trends. Will f/u in 2-3 days. Rec: 1) advance diet as medically feasible per MD and Speech Therapy recommendations 2) consider EN support with Glucerna @ 70 ml/hr per MD approval. 3) continue current plan of care
[2020-07-09] MEDS: MEROPENEM 1GM IVPB 100 ML IV SCH ×2 (12:33→22:07)
--- NOTE | 2020-07-09 16:24 | NUR ---
PATIENTS DAUGHTER BRUNO CALLED FOR UPDATE PROVIDED PASSWORD. UPDATED ON CURRENT STATUS AND MD RECOMMENDATIONS. CALL TRANSFERRED TO [facility] FOR HER TO SPEAK WITH FATHER. BRUNO ALSO INQUIRING ABOUT PAPERWORK FOR FINANCIAL CONSERVATORSHIP PATIENT WAS IN THE MIDDLE OF SELLING PERSONAL BUSINESS WHEN HE BECAME SICK. SHE STATES SHE HAS LEFT MESSAGES FOR SOCIAL WORK TO DISCUSS WHAT STEPS SHE NEEDS TO TAKE AND IS WAITING FOR CALL BACK. WILL NOTIFY MD AND COMMUNITY ENGAGEMENT COORDINATOR OF HER REQUEST
--- NOTE | 2020-07-09 19:25 | NUR ---
Opening Shift Note Received report from day shift RN Betsy Edwards Pt is lying in bed, eyes closed, easily arrousable. Pt is aphasic. Pt oriented to staff and POC. Pt educated rehabilitation physician light and call light placed within reach. No s/s of distress noted at this time. Bed is locked at lowest position, side rails are up. Will continue to monitor.
[2020-07-09] MEDS: ENOXAPARIN SOD 150 MG/1 ML SYRINGE SC SCH (22:00)
--- NOTE | 2020-07-09 22:00 | NUR ---
Lovenox held D/T heavy bleeding throughout fast food shift supervisor from everardo catheter. notifed in the AM and was instructed to hold lovenox until the D/C of the everardo catheter. Will continue to monitor site and patient.
[2020-07-09] MEDS: FAMOTIDINE (10MG/ML) 2ML VL IV SCH (22:07)
[2020-07-10] VITALS (94 sets, daily range): BP systolic 87–117; BP diastolic 54–78
[2020-07-10] MEDS: AMIODARONE 450mg/250ml AE 250 ML IV SCH ×2 (00:15→09:49)
[2020-07-10] MEDS: LINEZOLID 600MG/300ML 300 ML IV SCH ×3 (00:21→23:51)
[2020-07-10] MEDS: ACCU-CHEK COMFORT CURVE STRIP VI SCH ×5 (00:22→23:51)
[2020-07-10] MEDS: InsuLIN REG 1unit/0.01ml Soln (100units/ml) SC SCH ×5 (00:40→23:51)
--- NOTE | 2020-07-10 03:45 | NUR ---
PICC Line Dressing Change PICC line dressing change done with a sterile technique. Cleansed with chloraprep scrub/betadine. Stat lock, and bio-patch applied. Occlusive dressing applied. Pt tolerated well.
[2020-07-10 04:06] LABS: Basophils # (auto) 0 10 ^3/uL (0-0.2); Eosinophils # (auto) 0.1 10 ^3/uL (0-0.8)
[2020-07-10 04:09] LABS: Basophils % (auto) 0.2 % (0.0-2.0); Eosinophils % (auto) 0.4 % (0.0-7.0); Hematocrit 45.9 % (41.0-53.0); Hemoglobin 14.3 g/dL (13.5-17.5); Lymphocytes # (auto) 0.9 10 ^3/uL (0.4-5.4); Lymphocytes % (auto) 5.4 % (10.0-50.0); Mean Corpuscular Hemoglobin 26.8 pg (28.0-32.0); Mean Corpuscular Hgb Conc. 31.2 g/dL (32.0-36.0); Monocytes # (auto) 1.7 10 ^3/uL (0-1.3); Monocytes % (auto) 9.9 % (0.0-12.0); Neutrophils # (auto) 14.8 10 ^3/uL (1.6-8.6); Neutrophils % (auto) 84.1 % (37.0-80.0); Platelet Count (auto) 185 10^3/uL (140-450); Red Blood Cells 5.33 10^6/uL (4.5-5.90); Red Cell Distribution Width 19.3 % (11.8-14.3); White Blood Cell 17.6 10^3/uL (4.4-10.8)
[2020-07-10 04:25] LABS: Potassium 3.6 mmol/L (3.5-5.1)
[2020-07-10 04:34] LABS: Albumin 1.8 g/dL (3.4-5.0); BUN/Creatinine Ratio 38.5; Bilirubin, Total 1.1 mg/dL (0.2-1.0); Calcium 8.1 mg/dL (8.5-10.1); Total Protein 5.3 g/dL (6.4-8.2)
[2020-07-10] MEDS: D5W 5% 1,000 ML IV SCH ×4 (06:18→23:52)
--- NOTE | 2020-07-10 08:00 | NUR ---
ASSESS- PT. LYING IN BED WITH EYES CLOSED, AROUSABLE TO NAME. ALERT TO SELF ONLY, APHASIC AT THIS TIME. LUNGS CLEAR MONY. INSPIRATORY AND EXPIRATORY. NO SOB. O2 2L N/C. ABD. SOFT, ROUND, NON-TENDER. BOWEL SOUNDS HYPOACTIVE ALL FOUR QUADRANTS. F/C TO GRAVITY WITH LT. PATEL URINE WITH SEDIMENT. RADIAL PULSES STRONG, PALPABLE MONY. DORSALIS PEDAL PULSES STRONG, PALPABLE MONY. 1 PLUS EDEMA ARMS MONY. 2 PLUS EDEMA LE MONY. SCD'S MONY. LE. PICC NATAHSA TLC INTACT. MENDEZ CATHETER RT. IJ INTACT, DSG. D/I, NO BLEEDING. SACRUM AND COCCYX WITH MACERATION, SKIN PEELING, SACRAL OPTIFOAM DSG. D/I. RT. EAR WITH SCAB, NO OPENING. AMIODARONE GTT. AT 0.5 MG./MIN. PT. IS IN SR NOW, GOES IN AND OUT OF A-FIB, HX. OF A-FIB.
--- NOTE | 2020-07-10 08:05 | NUR ---
DR. MARK Provider/Hospitalist at bedside. GAVE UPDATE ON PT.
--- NOTE | 2020-07-10 09:00 | NUR ---
DR. Tatiana ANGULO Provider/Hospitalist at bedside. GAVE UPDATE ON PT. NEW ORDERS RECEIVED.
--- NOTE | 2020-07-10 09:40 | NUR ---
DR. GARCIA Provider/Hospitalist at bedside. GAVE UPDATE ON PT.
--- NOTE | 2020-07-10 09:45 | NUR ---
PT'S. DTG. BRUNO CALLED AND GAVE UPDATE. SAID SHE LEFT MESSAGE FOR MANAGER DELIVERY A COUPLE OF TIMES AND HAS NOT HEARD BACK FROM ANYONE, SHE HAS QUESTIONS SHE WOULD LIKE TO TALK TO SOMEONE ABOUT. INFORMED DTG. I WILL GET A HOLD OF MANAGER DELIVERY TO CALL HER. SAW NOTES FROM GENIA IN AND SPOKE WITH HER ON THE PHONE AND SHE SAID IT WILL BE LEONARDA MARKET PRESIDENT. CALLED LEONARDA AND SPOKE WITH HER AND GAVE HER DTG.'S. INFO.
[2020-07-10] MEDS: MEROPENEM 1GM IVPB 100 ML IV SCH ×2 (09:49→22:22)
[2020-07-10] MEDS: MICAFUNGIN SODIUM 100 MG in SODIUM CHL 0.9% 100 ML IV SCH (09:50)
[2020-07-10] MEDS: ENOXAPARIN SOD 150 MG/1 ML SYRINGE SC SCH ×2 (10:00→22:22)
--- NOTE | 2020-07-10 10:00 | NUR ---
ORDER FOR MENDEZ CATHETER TO BE REMOVED BY RADIOLOGIST BY DR. Tatiana ANGULO ORDERING. HELD LOVENOX. MENDEZ CATHETER WAS PLACED BY DR. ELDER IN NOTES. GALO RADIOLOGIST RN NOTIFIED DR. GORDON WHO SAID HE CAN REMOVE IT LATER TODAY.
[2020-07-10] MEDS: SODIUM CHLOR 0.9% PF (SALINE LOCK) 10ML VIAL/SYR IV SCH ×2 (10:44→22:22)
[2020-07-10] MEDS: NYSTATIN TOPICAL POWDER 15GM TOP SCH ×2 (10:45→22:22)
--- NOTE | 2020-07-10 12:15 | NUR ---
DR. REED Provider/Hospitalist at bedside. GAVE UPDATE ON PT.
--- NOTE | 2020-07-10 13:15 | NUR ---
DR. Marco VILLANUEVA Provider/Hospitalist at bedside. GAVE UPDATE ON PT.
--- NOTE | 2020-07-10 13:33 | NUR ---
DR. Marco VILLANUEVA CALLED AND WANTS TO START PT. ON CLINIMIX GTT. FOR 24HRS. TIMES 1 LITER. PT. UNABLE TO DO SWALLOW EVALUATION YEST., INFORMED MD. HAS BEEN NPO. PT. IS VERY DROWSY TODAY AND NOT FOLLOWING COMMANDS. MAY NOT BE ABLE TO DO SWALLOW EVALUATION AGAIN TODAY.
[2020-07-10] MEDS: NOREPINEPHRINE 8 MG/250ML KIT 250 ML IV SCH (13:42)
[2020-07-10] MEDS ORDERED: CLINIMIX PER PHARMACY 0 ML IV SCH (13:45)
--- NOTE | 2020-07-10 14:35 | NUR ---
PHYSICAL THERAPY AT WORKING WITH PT.
--- NOTE | 2020-07-10 16:30 | NUR ---
DR. GORDON AT AND REMOVED MENDEZ CATHETER RT. IJ. PRESSURE HELD BY FOR SEVERAL MINUTES. DSG. PLACED TO RT. SIDE OF NECK AT SITE, D/I. NO SIGNS OF BLEEDING.
--- NOTE | 2020-07-10 19:57 | NUR ---
NEURO ASSESSMENT PATIENT ABLE TO CLOSE AND OPEN HIS EYES ON COMMAND, ABLE TO SQUEEZE MY FINGERS WITH HIS LEFT HAND, WIGGLES TOES BILATERALLY. UNABLE TO SPEAK. SEE INTERVENTIONS FOR FULL ASSESSMENT.
[2020-07-10] MEDS ORDERED: AMINO ACID INFUSION IN D10W 1,000 ML IV NR (20:00)
[2020-07-10] MEDS ORDERED: CLINIMIX PER PHARMACY IV NR (20:00)
[2020-07-10] MEDS: FAMOTIDINE (10MG/ML) 2ML VL IV SCH (22:22)
[2020-07-11] VITALS (91 sets, daily range): BP systolic 92–130; BP diastolic 59–88
--- NOTE | 2020-07-11 00:33 | NUR ---
COOLING MEASURES TEMP 99.5 AXILLARY APPLIED ICE PACKS BILATERAL AXILLA. DECREASED ROOM TEMP.
--- NOTE | 2020-07-11 02:10 | NUR ---
CARES FULL BED LINEN CHANGE, FULL CHG BED BATH. IRRIGATED SACRUM WITH SKINTEGRITY, APPLIED ZGUARD AND OTIFOAM. PATIENT TOLERATED CARES WELL. WHEN ASKED IF HE HAD PAIN, PATIENT VERBALIZED "NO".
[2020-07-11] MEDS: AMIODARONE 450mg/250ml AE 250 ML IV SCH ×2 (04:00→18:30)
[2020-07-11 05:03] LABS: Basophils # (auto) 0 10 ^3/uL (0-0.2); Lymphocytes # (auto) 1.3 10 ^3/uL (0.4-5.4); Mean Corpuscular Hgb Conc. 30.4 g/dL (32.0-36.0); Monocytes # (auto) 1.6 10 ^3/uL (0-1.3); Platelet Count (auto) 192 10^3/uL (140-450)
[2020-07-11 05:07] LABS: Basophils % (auto) 0.1 % (0.0-2.0); Eosinophils # (auto) 0.2 10 ^3/uL (0-0.8); Hematocrit 47.5 % (41.0-53.0); Hemoglobin 14.4 g/dL (13.5-17.5); Lymphocytes % (auto) 7.3 % (10.0-50.0); Mean Corpuscular Volume 85.7 fL (80.0-100.0); Monocytes % (auto) 8.9 % (0.0-12.0); Neutrophils # (auto) 14.5 10 ^3/uL (1.6-8.6); Neutrophils % (auto) 82.7 % (37.0-80.0); Red Blood Cells 5.54 10^6/uL (4.5-5.90); White Blood Cell 17.5 10^3/uL (4.4-10.8)
[2020-07-11 05:35] LABS: Alanine Aminotransferase 55 U/L (16-61); Albumin 1.9 g/dL (3.4-5.0); Alkaline Phosphatase 53 U/L (45-117); Aspartate Aminotransferase 42 U/L (15-37); BUN/Creatinine Ratio 37.6; Bilirubin, Total 1.1 mg/dL (0.2-1.0); Calcium 8.4 mg/dL (8.5-10.1); Carbon Dioxide 33 mmol/L (21-32); GFR African American 38 mL/min; GFR Non-African American 31 mL/min; Glucose 250 mg/dL (74-106); Magnesium 2.1 mg/dL (1.6-2.6); Phosphorus 3.3 mg/dL (2.5-4.90); Pre Albumin 19.4 mg/dL (20.0-40.0); Total Protein 5.3 g/dL (6.4-8.2); Triglycerides 184 mg/dL (< 150)
[2020-07-11] MEDS: ACCU-CHEK COMFORT CURVE STRIP VI SCH ×3 (06:00→18:51)
[2020-07-11] MEDS: InsuLIN REG 1unit/0.01ml Soln (100units/ml) SC SCH ×2 (06:02→18:51)
[2020-07-11 06:57] LABS: Anion Gap 7 (5-15); Chloride 121 mmol/L (98-107); Potassium 3.3 mmol/L (3.5-5.1)
--- NOTE | 2020-07-11 07:05 | NUR ---
Assumed care of pt., report received per STACEY Escoto. No distress noted, pt. attached to monitor and reading sinus rhythm, will cont.to monitor for any changes, call acharya in reach, assessment ongoing.
--- NOTE | 2020-07-11 07:11 | NUR ---
CRITICAL LAB VALUES NOTIFIED DAY SHIFT RN OF CRITICAL LAB VALUES
[2020-07-11 07:16] LABS: Blood Urea Nitrogen 83 mg/dL (7-18); Sodium 161 mmol/L (136-145)
--- NOTE | 2020-07-11 09:26 | NUR ---
re-assessment Received a message to call daughter Sri. Sri has informed me that Dr Nathan has filled out paperwork regarding patients status in the hospital. Sri is requesting that Dr Nathan sign in front of a notary so she can access patients safety deposit box. Sri informed me that Dr Nathan refused so Sri is asking for me to talk to Dr Nathan for her. Per Dr Nathan he is not signing or notarizing any paperwork. Per Dr Nathan patient has been extubated and is alert and oriented and can make his own decisions. I informed Sri and she was not happy with Dr Nathan's decision. I informed Sri there is no need for her to access patients safety deposit box if patient is alert and oriented. Sri hung up the phone. Addendum: 07/11/20 at 0947 by Tana MUNSON Amended: Links added.
[2020-07-11] MEDS ORDERED: POTASSIUM CHL 20MEQ/100ML 100 ML IV ONE (09:45)
[2020-07-11] MEDS: MEROPENEM 1GM IVPB 100 ML IV SCH ×2 (10:32→22:44)
[2020-07-11] MEDS: ENOXAPARIN SOD 150 MG/1 ML SYRINGE SC SCH ×2 (10:32→22:45)
[2020-07-11] MEDS: MICAFUNGIN SODIUM 100 MG in SODIUM CHL 0.9% 100 ML IV SCH (10:32)
[2020-07-11] MEDS: NYSTATIN TOPICAL POWDER 15GM TOP SCH ×2 (10:41→22:45)
[2020-07-11] MEDS: SODIUM CHLOR 0.9% PF (SALINE LOCK) 10ML VIAL/SYR IV SCH ×2 (10:41→22:45)
--- NOTE | 2020-07-11 11:18 | NUR ---
Nutrition Followup Notes Wt: 142.3 kg Pt was sleeping with no family at bedside when rounded this am. Pt is still awaiting swallow eval, unable to perform swallow eval yesterday per MD note. Pt is still NPO receiving Amino Acids at 42 ml/hr providing 340 kcal and 42.5g of protein per liter. Consider a swallow eval when able and advance diet as medically feasible Est Energy needs ABW 121 [id number] kcals (17-20 kcal/kgABW), Est Protein needs: 121-133 gms/day (1.0-1.1 gm/kgABW). Will continue to monitor and reassess prn. Labs: Na 157H, K 3.3L, Cl 116H, BUN 98H, Creat 2.50H, CO2 33H, GLUC 280H, Ca 8.2L, Alb 1.9L BM: Pt had 1 BM reported on 07/01 per RN doc Skin: BS 13 mod risk, full details in child care attendant note PES: 1) Altered nutrition related lab values r.t current chronic medial condition aeb elev RFT A1C hyperglycemia 2) Decreased nutrient needs r/t adiposity aeb pt`s high BMI of 41.1 kgm Partially resolved, pending a swallow eval 3) Impaired swallowing r.t current medical condition aeb pt`s intubated sedated with NPO Comments Will continue to monitor NPO status, skin status, pertinent labs and weight trends. Will f/u in 2-3 days. Rec: 1) advance diet as medically feasible per MD and Speech Therapy recommendations 2) consider EN support with Glucerna @ 70 ml/hr per MD approval. 3) continue current plan of care
[2020-07-11] MEDS ORDERED: TPN PER PHARMACY 0 ML IV SCH (12:00)
[2020-07-11] MEDS: LINEZOLID 600MG/300ML 300 ML IV SCH (12:36)
[2020-07-11] MEDS ORDERED: DEXTROSE (50%) 50ML SYRG IV PRN (13:00)
[2020-07-11] MEDS: NOREPINEPHRINE 8 MG/250ML KIT 250 ML IV SCH (16:45)
--- NOTE | 2020-07-11 19:20 | NUR ---
No distress noted, pt. report given to STACEY Escoto. Care of pt assumed per NOC shift RN, Day shift RN relinquished care and signed off.
[2020-07-11] MEDS ORDERED: TPN PER PHARMACY IV NR ×8 (20:00)
[2020-07-11] MEDS: FAMOTIDINE (10MG/ML) 2ML VL IV SCH (22:44)
[2020-07-11] MEDS: methylPREDNISolone SOD SUCC 40 MG/ML VL IV SCH (22:45)
[2020-07-12] VITALS (86 sets, daily range): BP systolic 92–147; BP diastolic 34–104
[2020-07-12] MEDS: LINEZOLID 600MG/300ML 300 ML IV SCH ×2 (00:01→13:00)
[2020-07-12] MEDS: ACCU-CHEK COMFORT CURVE STRIP VI SCH ×4 (00:02→18:10)
[2020-07-12] MEDS: InsuLIN REG 1unit/0.01ml Soln (100units/ml) SC SCH ×4 (00:02→18:13)
[2020-07-12 04:04] LABS: Albumin 1.9 g/dL (3.4-5.0); Magnesium 1.8 mg/dL (1.6-2.6); Uric Acid 10.1 mg/dL (3.5-7.2)
[2020-07-12 04:08] LABS: BUN/Creatinine Ratio 36.9; Bilirubin, Total 1.2 mg/dL (0.2-1.0); Phosphorus 4.5 mg/dL (2.5-4.90); Total Protein 5.5 g/dL (6.4-8.2)
[2020-07-12] MEDS: D5W 5% 1,000 ML IV SCH ×2 (05:39→17:00)
--- NOTE | 2020-07-12 08:30 | NUR ---
NEURO PATIENT APPEARS ORIENTED TO SELF AND YEAR ONLY. FOLLOWS COMMANDS. PATIENT ABLE TO MOVE RIGHT FINGERS MINIMALLY. PATIENT ABLE TO MOVE TOES BILAT. SPEECH GARBLED AND QUIET.
[2020-07-12 08:50] LABS: Basophils # (auto) 0 10 ^3/uL (0-0.2); Eosinophils # (auto) 0 10 ^3/uL (0-0.8); Eosinophils % (auto) 0.2 % (0.0-7.0); Hemoglobin 14.3 g/dL (13.5-17.5); Lymphocytes # (auto) 0.4 10 ^3/uL (0.4-5.4); Monocytes # (auto) 0.3 10 ^3/uL (0-1.3)
[2020-07-12 08:52] LABS: Basophils % (auto) 0.2 % (0.0-2.0); Hematocrit 46.4 % (41.0-53.0); Lymphocytes % (auto) 2.6 % (10.0-50.0); Mean Corpuscular Hemoglobin 26.8 pg (28.0-32.0); Mean Corpuscular Hgb Conc. 30.9 g/dL (32.0-36.0); Mean Corpuscular Volume 86.7 fL (80.0-100.0); Monocytes % (auto) 1.8 % (0.0-12.0); Neutrophils # (auto) 16.4 10 ^3/uL (1.6-8.6); Neutrophils % (auto) 95.2 % (37.0-80.0); Platelet Count (auto) 183 10^3/uL (140-450); Red Blood Cells 5.35 10^6/uL (4.5-5.90); Red Cell Distribution Width 19.7 % (11.8-14.3); White Blood Cell 17.2 10^3/uL (4.4-10.8)
--- NOTE | 2020-07-12 09:15 | NUR ---
DR ANGULO VISITS AND EXAMINES PATIENT - ORDERS RECEIVED.
--- NOTE | 2020-07-12 10:11 | NUR ---
PATIENT'S DAUGHTER PHONES - UPDATED ON PATIENT CONDITION - VERBALIZES UNDERSTANDING.
--- NOTE | 2020-07-12 10:11 | NUR ---
PT AT BEDSIDE FOR AROM AND PROM EXERCISES.
[2020-07-12] MEDS: MICAFUNGIN SODIUM 100 MG in SODIUM CHL 0.9% 100 ML IV SCH (10:20)
[2020-07-12] MEDS: NYSTATIN TOPICAL POWDER 15GM TOP SCH ×2 (10:20→22:30)
[2020-07-12] MEDS: ENOXAPARIN SOD 150 MG/1 ML SYRINGE SC SCH ×2 (10:22→22:00)
[2020-07-12] MEDS: methylPREDNISolone SOD SUCC 40 MG/ML VL IV SCH ×2 (10:23→22:00)
[2020-07-12] MEDS: AMIODARONE 450mg/250ml AE 250 ML IV SCH (10:26)
[2020-07-12] MEDS: ALLOPURINOL 300 MG TAB PO SCH (10:26)
[2020-07-12] MEDS: SODIUM CHLOR 0.9% PF (SALINE LOCK) 10ML VIAL/SYR IV SCH ×2 (10:26→22:00)
[2020-07-12] MEDS: MEROPENEM 1GM IVPB 100 ML IV SCH ×2 (11:00→22:30)
[2020-07-12] MEDS: FREE WATER GT SCH ×3 (13:55→22:30)
--- NOTE | 2020-07-12 14:00 | NUR ---
DR GARCIA VISITS AND EXAMINES PATIENT-ORDERS RECEIVED.
--- NOTE | 2020-07-12 16:05 | NUR ---
SWALLOW EVALUATED. PATIENT HAS NATURAL TEETH. ABLE TO FOLLOW ONE STEP COMMANDS. PATIENT ABLE TO TOLERATE PUREE DIET TEXTURE WITH THIN LIQUIDS WITH NO OVERT SIGNS OR SYMPTOMS OF ASPIRATION. NURSING NOTIFIED.
--- NOTE | 2020-07-12 17:20 | NUR ---
DR MARK VISITS AND EXAMINES PATIENT - ORDERS RECEIVED.
[2020-07-12] MEDS: NOREPINEPHRINE 8 MG/250ML KIT 250 ML IV SCH (17:30)
--- NOTE | 2020-07-12 17:30 | NUR ---
TELEGRAPH OFFICE MANAGER SPOKE TO TUBE BENDER - STATES THAT CT IS CURRENTLY DOWN DUE TO PATIENT WITH COVID IN [place] PREVIOUSLY AND NEEDS TO BE CLEANED AND THEN REMAIN UNOCCUPIED X 1 1/2 HR - TELEGRAPH OFFICE MANAGER NOTIFIED DR MARK - STATES OKAY BUT WANT S CT DONE THIS PM - TELEGRAPH OFFICE MANAGER NOTIFIED CT AND WILL INFORM NOC RN.
[2020-07-12] MEDS: AMIODARONE HCL 200 MG TAB PO SCH (18:24)
--- NOTE | 2020-07-12 18:30 | NUR ---
PATIENT'S DAUGHTER PHONES - WANTS TO SPEAK WIT PATIENT - CARTON FILLER USED PORTABLE PHONE AND PATIENT ABLE TO TALK TO DAUGHTER.
--- NOTE | 2020-07-12 19:30 | NUR ---
REPORT RECEIVED AND ASSUMED CARE; VS STABLE AT THIS TIME; AMIODORONE GTT OFF AM RN STARTED P.O. AMIODARONE AND PER ; PT. MAINTAINING HR IN THE 70-80'S AFIB; PT. ON ROOM AIR AND TOLERATING WELL; PT. CONT. TO BE CONFUSED AND SPEECH IS GARBLED; DR. MARK HAS ORDERED A REPEAT HEAD CT TO BE DONE THIS EVENING; SEE IV SPREADSHEET FOR GTTS; WILL CONT. TO MONITOR.
[2020-07-12 19:36] LABS: BUN/Creatinine Ratio 38.9; Calcium 7.9 mg/dL (8.5-10.1); Potassium 3.9 mmol/L (3.5-5.1)
[2020-07-12] MEDS ORDERED: TPN PER PHARMACY IV NR ×10 (20:00)
[2020-07-12] MEDS: FAMOTIDINE (10MG/ML) 2ML VL IV SCH (22:00)
--- NOTE | 2020-07-12 22:00 | NUR ---
S/W ADHESIVE BANDAGE MACHINE OPERATOR AND I WAS INFORMED THAT THE CT MACHINE WAS DONE AND THAT THEY WERE BACKED UP ON CT SCANNING; I INFORMED CT THAT I WOULD CHECK BACK WITH THEM IN A COUPLE OF HOURS TO SEE IF CT CAN BE DONE TONIGHT.
[2020-07-13] VITALS (29 sets, daily range): BP systolic 100–134; BP diastolic 69–86
--- NOTE | 2020-07-13 01:30 | NUR ---
s/w district court administrator and ct fixed, but now backed up with cases; will notify day shift RN to obtain on their shift.
[2020-07-13] MEDS: InsuLIN REG 1unit/0.01ml Soln (100units/ml) SC SCH ×5 (01:38→23:30)
[2020-07-13] MEDS: ACCU-CHEK COMFORT CURVE STRIP VI SCH ×5 (01:38→23:24)
[2020-07-13] MEDS: FREE WATER GT SCH ×6 (02:00→21:45)
[2020-07-13 05:17] LABS: Magnesium 2.1 mg/dL (1.6-2.6); Potassium 3.8 mmol/L (3.5-5.1)
[2020-07-13 05:21] LABS: BUN/Creatinine Ratio 37.1; Bilirubin, Total 1.2 mg/dL (0.2-1.0); Phosphorus 2.8 mg/dL (2.5-4.90); Total Protein 5.3 g/dL (6.4-8.2)
[2020-07-13] MEDS: AMIODARONE HCL 200 MG TAB PO SCH ×2 (06:24→18:53)
--- NOTE | 2020-07-13 08:15 | NUR ---
TO CT PER BED ON PORTABLE DISEASE MANAGEMENT NURSE ACCOMPANIED PER RN - PATIENT ORI WELL, AWAITING RESULTS
--- NOTE | 2020-07-13 08:45 | NUR ---
SPOKE TO DR ANGULO - ORDERS RECEIVED.
[2020-07-13 08:52] LABS: Basophils # (auto) 0 10 ^3/uL (0-0.2); Basophils % (auto) 0.1 % (0.0-2.0); Eosinophils # (auto) 0 10 ^3/uL (0-0.8); Hematocrit 44.5 % (41.0-53.0); Lymphocytes # (auto) 0.6 10 ^3/uL (0.4-5.4); Lymphocytes % (auto) 3.6 % (10.0-50.0); Mean Corpuscular Hemoglobin 26.9 pg (28.0-32.0); Mean Corpuscular Hgb Conc. 31.5 g/dL (32.0-36.0); Mean Corpuscular Volume 85.3 fL (80.0-100.0); Monocytes # (auto) 0.8 10 ^3/uL (0-1.3); Monocytes % (auto) 4.8 % (0.0-12.0); Neutrophils # (auto) 15.1 10 ^3/uL (1.6-8.6); Neutrophils % (auto) 91.5 % (37.0-80.0); Nucleated Red Blood Cells % 0.2 %; Platelet Count (auto) 196 10^3/uL (140-450); Red Blood Cells 5.22 10^6/uL (4.5-5.90); Red Cell Distribution Width 19.1 % (11.8-14.3); White Blood Cell 16.6 10^3/uL (4.4-10.8)
[2020-07-13] MEDS: SODIUM CHLOR 0.9% PF (SALINE LOCK) 10ML VIAL/SYR IV SCH ×2 (09:12→21:44)
[2020-07-13] MEDS: MICAFUNGIN SODIUM 100 MG in SODIUM CHL 0.9% 100 ML IV SCH (09:12)
[2020-07-13] MEDS: NYSTATIN TOPICAL POWDER 15GM TOP SCH ×2 (09:14→22:00)
--- NOTE | 2020-07-13 09:15 | NUR ---
DR SORIANO VISITS - NO NEW ORDERS RECEIVED.
[2020-07-13] MEDS: methylPREDNISolone SOD SUCC 40 MG/ML VL IV SCH ×2 (10:43→21:44)
[2020-07-13] MEDS: ENOXAPARIN SOD 150 MG/1 ML SYRINGE SC SCH ×2 (10:43→21:45)
[2020-07-13] MEDS: MEROPENEM 1GM IVPB 100 ML IV SCH ×2 (10:43→21:44)
[2020-07-13] MEDS: ALLOPURINOL 300 MG TAB PO SCH (10:43)
--- NOTE | 2020-07-13 12:03 | NUR ---
Nutrition Followup Notes Wt: 142.0 kg Pt was sleeping with no family at bedside when rounded this am. pt now advanced to pureed diet with inadequate PO of 0%. Pt is still NPO receiving Amino Acids at 51 ml/hr providing 1062 kcal and 70 g of protein. Est Energy needs ABW 121 [id number] kcals (17-20 kcal/kgABW), Est Protein needs: 121-133 gms/day (1.0-1.1 gm/kgABW). Will continue to monitor and reassess prn. Labs: BUN 69 H CREAT 1.86 H GLU 313 H CA 8.0 L ALB 2.0 L BM: Pt had 1 BM reported on 07/01 per RN doc Skin: BS 11 high risk, full details in transitional care liaison note PES: 1) Altered nutrition related lab values r.t current chronic medial condition aeb elev RFT A1C hyperglycemia 2) Decreased nutrient needs r/t adiposity aeb pt`s high BMI of 41.1 kgm Partially resolved, pending a swallow eval 3) Impaired swallowing r.t current medical condition aeb pt`s intubated sedated with NPO Comments Will continue to monitor NPO status, PN tolerance, skin status, pertinent labs and weight trends. Will f/u in 2-3 days. Rec: 1) advance PN support to meet > 75% of needs if PO continues to be poor. 2) continue assistance with meals. 3) continue current plan of care
[2020-07-13] MEDS: LINEZOLID 600MG/300ML 300 ML IV SCH ×2 (12:08)
--- NOTE | 2020-07-13 12:30 | NUR ---
PATIENT'S DAUGHTER BRUNO PHONES - GIVEN UPDATE - VERBALIZED UNDERSTANDING. PATIENT'S DAUGHTER EXTREMELY CONCERNED ABOUT PATIENT'S FINANCIAL SITUATION RE: SALE OF PATIENT'S BUSINESS THAT WAS UNDERWAY BEFORE HE CAME INTO THE HOSPITAL THIS ADMISSION. STATES THAT SHE NEEDS A DR TO EITHER SIGN THAT PATIENT IS NOT COMPETENT SO SHE CAN GET CONSERVATORSHIP OR VERIFY THAT PATIENT IS OF SOUND MIND AND LET HIM SIGN POA DOCUMENTS THAT WILL ALLOW HER TO ACCESS PATIENT'S SAFE DEPOSIT BOX WHERE THE ORIGINAL POA PAPERS WERE PLACED.
--- NOTE | 2020-07-13 13:00 | NUR ---
DR ANGULO VISITS - NEW ORDERS RECEIVED.
--- NOTE | 2020-07-13 16:30 | NUR ---
DR MARK VISITS AND EXAMINES PATIENT-NO NEW ORDERS RECEIVED.
--- NOTE | 2020-07-13 17:00 | NUR ---
REPORT CALLED TO ROGELIO IBARRA.
--- NOTE | 2020-07-13 17:36 | NUR ---
PATIENT TRANSPORTED TO ROOM 264 PER BED WITH AUDITOR TAX, ACCOMPANIED PER RN. CONDITION APPEARS STABLE FOR TRANSFER.
--- NOTE | 2020-07-13 17:40 | NUR ---
EVENS KAPADIA received to [facility] from ICU via hospital bed on school lunch monitor. Patient connected to unit monitoring and weighed by [facility]. Patient oriented to Alessandra mendez RN, unit, room, bed, and unit policies regarding patient care and visiting hours. All questions and concerns addressed, patient verbalized understanding. Patient oriented to self only, very minimal verbal response, re-orientation done. No S/S of SOB/pain. RT nare clamped. See interventions for complete assessment. Bed locked on low position, side rails up x2, bed alarms on at all times, will continue to monitor.
--- NOTE | 2020-07-13 19:00 | NUR ---
OPENING NOTES ASSUMED CARE, A/O TO SELF, ABLE TO FOLLOW SIMPLE COMMANDS, ON ROOM AIR, SPO2 95%, RIGHT UPPER ARM PICC LINE PATENT AND INTACT, TPN INFUSING @ DESIRED RATE, AFIB NOTED, KIM CATHETER INTACT DRAINING TO A DARK PATEL URINE. BED IN LOWEST POSITION WITH SIDE RAILS UP, BED ALARM ON. WILL CONTINUE CARE.
[2020-07-13] MEDS ORDERED: TPN PER PHARMACY IV NR ×12 (20:00)
--- NOTE | 2020-07-13 21:10 | NUR ---
RECEIVED A CALL FROM PT'S DTR, BRUNO, UPDATES GIVEN AFTER VERIFICATION OF PW, THEN TRANSFERRED THE CALL TO THE PT
[2020-07-13] MEDS: FAMOTIDINE (10MG/ML) 2ML VL IV SCH (21:45)
[2020-07-14 00:09] VITALS: BP 113/79
[2020-07-14] MEDS: FREE WATER GT SCH ×6 (02:10→22:07)
[2020-07-14 03:34] LABS: Basophils # (auto) 0 10 ^3/uL (0-0.2); Basophils % (auto) 0.1 % (0.0-2.0); Eosinophils # (auto) 0 10 ^3/uL (0-0.8); Hematocrit 44.9 % (41.0-53.0); Hemoglobin 14.5 g/dL (13.5-17.5); Lymphocytes # (auto) 0.5 10 ^3/uL (0.4-5.4); Lymphocytes % (auto) 3.1 % (10.0-50.0); Mean Corpuscular Hemoglobin 27.6 pg (28.0-32.0); Mean Corpuscular Hgb Conc. 32.4 g/dL (32.0-36.0); Mean Corpuscular Volume 85.4 fL (80.0-100.0); Monocytes # (auto) 0.8 10 ^3/uL (0-1.3); Monocytes % (auto) 4.4 % (0.0-12.0); Neutrophils # (auto) 16.3 10 ^3/uL (1.6-8.6); Neutrophils % (auto) 92.4 % (37.0-80.0); Platelet Count (auto) 210 10^3/uL (140-450); Red Blood Cells 5.26 10^6/uL (4.5-5.90); Red Cell Distribution Width 18.8 % (11.8-14.3); White Blood Cell 17.6 10^3/uL (4.4-10.8)
[2020-07-14 03:51] LABS: Albumin 2.1 g/dL (3.4-5.0); Calcium 8.1 mg/dL (8.5-10.1); Magnesium 2.2 mg/dL (1.6-2.6); Potassium 4.3 mmol/L (3.5-5.1)
[2020-07-14 03:55] LABS: BUN/Creatinine Ratio 40.1; Bilirubin, Total 1.1 mg/dL (0.2-1.0); Phosphorus 2.6 mg/dL (2.5-4.90); Total Protein 5.5 g/dL (6.4-8.2)
[2020-07-14 04:22] VITALS: BP 129/78
--- NOTE | 2020-07-14 04:30 | NUR ---
Patient bathe/linen change Patient given complete bath. Skin integrity assessed for any changes,z-guard applied to sacrum and optifoam changed. Linens and gown changed. Patient repositioned for comfort.
[2020-07-14] MEDS: ACCU-CHEK COMFORT CURVE STRIP VI SCH ×3 (06:22→18:02)
[2020-07-14] MEDS: AMIODARONE HCL 200 MG TAB PO SCH ×2 (06:23→18:08)
[2020-07-14] MEDS: InsuLIN REG 1unit/0.01ml Soln (100units/ml) SC SCH ×3 (06:23→18:03)
--- NOTE | 2020-07-14 07:45 | NUR ---
OPENING SHIFT NOTE Received report from NOC RNRosibel. Assumed care of patient. Received patient lying in bed, connected to bedside monitor with alarms in place. Patient is drowsy, alert to self, denies pain and with no other s/s of distress noted. Patient on RA with O2 stats >92%. Patient with right upper arm TL PICC line with TPN infusing at 57ml/hr, NS @TKO and other port is patent. Dennison draining to gravity light angelica urine. Bed in lowest position, rails x3 up and call light within reach. Updated on plan of care. Will continue to monitor.
[2020-07-14 08:00] VITALS: BP 123/84
--- NOTE | 2020-07-14 08:57 | NUR ---
WOUND CARE NOTE: PATIENT TRANSFERRED TO [facility] OVERNIGHT. PATIENT NO LONGER ON ICU LOW AIRLOSS BED. SPECIALTY AIR MATTRESS ORDERED AT THIS TIME. PATIENT TO BE PLACED, PENDING DELIVERY BY EVAN CHANDRA
--- NOTE | 2020-07-14 09:10 | NUR ---
MD Dr Analia Nathan at bedside. No new orders received. Possible downgrade to tele on Wednesday07/15/2020 if patient remains stable.
--- NOTE | 2020-07-14 09:25 | NUR ---
FAMILY T/C from patient's daughterSri. Password verified. Updated on patient status and plan of care. All questions addressed at this time.
[2020-07-14] MEDS: methylPREDNISolone SOD SUCC 40 MG/ML VL IV SCH ×2 (10:22→22:08)
[2020-07-14] MEDS: ALLOPURINOL 300 MG TAB PO SCH (10:23)
[2020-07-14] MEDS: ENOXAPARIN SOD 150 MG/1 ML SYRINGE SC SCH ×2 (10:23→22:08)
[2020-07-14] MEDS: MICAFUNGIN SODIUM 100 MG in SODIUM CHL 0.9% 100 ML IV SCH (10:23)
[2020-07-14] MEDS: NYSTATIN TOPICAL POWDER 15GM TOP SCH ×2 (10:23→22:08)
[2020-07-14] MEDS: SODIUM CHLOR 0.9% PF (SALINE LOCK) 10ML VIAL/SYR IV SCH ×2 (10:23→22:08)
[2020-07-14] MEDS: MEROPENEM 1GM IVPB 100 ML IV SCH ×2 (11:37→18:08)
[2020-07-14 11:51] VITALS: BP 134/91
[2020-07-14] MEDS: LINEZOLID 600MG/300ML 300 ML IV SCH ×2 (13:49)
--- NOTE | 2020-07-14 15:35 | NUR ---
Patient transferred to specialty bed. NORMA Verma at bedside working on ROM.
[2020-07-14 16:00] VITALS: BP 124/97
--- NOTE | 2020-07-14 16:19 | NUR ---
FAMILY T/C from patient's daughterSri. Password verified. Updated on patient status. All questions addressed at this time.
--- NOTE | 2020-07-14 18:46 | NUR ---
END OF SHIFT NOTE Patient resting in bed. Patient has been very drowsy throughout shift, however responding more to staff as day progressed. No s/s of distress noted. Patient with TPN still infusing at 57ml/hr. Patient remains NPO and continues to get free water boluses via NGT to right nare. Dennison draining dark angelica urine. Bed in lowest position, bed rails x3 up and call light within reach. Report to be given to oncoming NOC RNBetsy.
--- NOTE | 2020-07-14 19:45 | NUR ---
Opening Shift Note Assumed care of patient, resting. No S/S of distress/SOB or pain. Instructed on POC and to call for assist but does not seem able to call physically or mentally at this time, NGT to right nare, clamped. PICC infusing with TPN. Dennison to gravity. Will continue to monitor for changes.
[2020-07-14 20:00] VITALS: BP 120/80
[2020-07-14] MEDS: TPN PER PHARMACY IV NR ×11 (20:00)
--- NOTE | 2020-07-14 21:00 | NUR ---
Brother called. RN held phone up to Pt's ear. Brother spoke to pt for a little over 5 min. Pt seemed to respond in 2-3 word answers or "yeah"s. Then said, "Ok, bye." RN asked the brother if the pt seemed to be responding appropriately to his conversation and he said that he did. Dr. Mercer on unit and informed of conversation and what was witnessed. Pt was asked if he knew where he was, he said no. What state was he in? He did not know. Pt reoriented to where he was. Will continue to monitor.
[2020-07-14] MEDS: FAMOTIDINE (10MG/ML) 2ML VL IV SCH (22:09)
[2020-07-15] VITALS: BP 122/86
--- NOTE | 2020-07-15 | NUR ---
Pt remains stable. Pt turned [id number]. Oral care provided.
[2020-07-15] MEDS: TPN PER PHARMACY IV NR ×11 (00:19)
[2020-07-15] MEDS: InsuLIN REG 1unit/0.01ml Soln (100units/ml) SC SCH ×4 (00:27→17:24)
[2020-07-15] MEDS: ACCU-CHEK COMFORT CURVE STRIP VI SCH ×4 (00:27→17:50)
[2020-07-15] MEDS: FREE WATER GT SCH ×8 (00:28→23:00)
[2020-07-15] MEDS: MEROPENEM 1GM IVPB 100 ML IV SCH ×3 (02:00→18:15)
[2020-07-15 04:00] VITALS: BP 125/86
--- NOTE | 2020-07-15 04:00 | NUR ---
Stable. Turned [id number]. Oral care done. Will continue to monitor. No S/S of distress.
[2020-07-15] MEDS: AMIODARONE HCL 200 MG TAB PO SCH ×2 (07:03→18:15)
[2020-07-15 07:06] LABS: Basophils # (auto) 0 10 ^3/uL (0-0.2); Basophils % (auto) 0.2 % (0.0-2.0); Eosinophils # (auto) 0 10 ^3/uL (0-0.8); Hematocrit 44.9 % (41.0-53.0); Hemoglobin 14.2 g/dL (13.5-17.5); Lymphocytes # (auto) 0.5 10 ^3/uL (0.4-5.4); Lymphocytes % (auto) 3.4 % (10.0-50.0); Mean Corpuscular Hemoglobin 27.2 pg (28.0-32.0); Mean Corpuscular Hgb Conc. 31.5 g/dL (32.0-36.0); Mean Corpuscular Volume 86.2 fL (80.0-100.0); Monocytes # (auto) 0.8 10 ^3/uL (0-1.3); Monocytes % (auto) 5.5 % (0.0-12.0); Neutrophils # (auto) 12.9 10 ^3/uL (1.6-8.6); Neutrophils % (auto) 90.9 % (37.0-80.0); Nucleated Red Blood Cells % 0.1 %; Platelet Count (auto) 191 10^3/uL (140-450); Red Blood Cells 5.21 10^6/uL (4.5-5.90); Red Cell Distribution Width 18.7 % (11.8-14.3); White Blood Cell 14.2 10^3/uL (4.4-10.8)
[2020-07-15 07:24] LABS: Potassium 4.6 mmol/L (3.5-5.1)
[2020-07-15 07:37] LABS: Magnesium 2.4 mg/dL (1.6-2.6)
[2020-07-15 07:38] LABS: Albumin 2.1 g/dL (3.4-5.0); BUN/Creatinine Ratio 42.6; Total Protein 5.5 g/dL (6.4-8.2)
[2020-07-15 07:40] VITALS: BP 114/79
[2020-07-15 07:42] LABS: Phosphorus 3.9 mg/dL (2.5-4.90); Pre Albumin 28.2 mg/dL (20.0-40.0)
[2020-07-15] MEDS: SODIUM CHLOR 0.9% PF (SALINE LOCK) 10ML VIAL/SYR IV SCH ×2 (09:46→20:09)
[2020-07-15] MEDS: methylPREDNISolone SOD SUCC 40 MG/ML VL IV SCH ×2 (09:46→20:10)
[2020-07-15] MEDS: MICAFUNGIN SODIUM 100 MG in SODIUM CHL 0.9% 100 ML IV SCH (09:46)
[2020-07-15] MEDS: ALLOPURINOL 300 MG TAB PO SCH (09:48)
[2020-07-15] MEDS: ENOXAPARIN SOD 150 MG/1 ML SYRINGE SC SCH ×2 (09:49→20:10)
[2020-07-15] MEDS: NYSTATIN TOPICAL POWDER 15GM TOP SCH ×2 (09:57→20:11)
[2020-07-15] MEDS: D5W 5% 1,000 ML IV SCH (10:30)
--- NOTE | 2020-07-15 10:30 | NUR ---
WITH PT ORDER GIVEN TO D/C NG TUBE, UPDATED ON TELE STRIPS WIT JUNCTIONAL RHYTHM. NO FURTHER ORDERS BY MD.
[2020-07-15 12:00] VITALS: BP 122/80
[2020-07-15] MEDS: LINEZOLID 600MG/300ML 300 ML IV SCH ×2 (13:01)
--- NOTE | 2020-07-15 13:54 | NUR ---
Nutrition Followup Notes Wt: 141.9 kg Pt was sleeping with no family at bedside when rounded this am. Pt is with a pureed diet on hold for now per RN doc. Pt is still NPO receiving TPN @ 70 ml/hr providing 1155 kcals, 90 g of protein and 795 NPCs. Pt with inadequate energy intake from PN support as it meets 48-51% of est caloric needs. Protein intake from PN support is inadequate as it meets 68-74% of est protein needs. Est Energy needs ABW 121 [id number] kcals (17-20 kcal/kgABW), Est Protein needs: 121-133 gms/day (1.0-1.1 gm/kgABW). Will continue to monitor and reassess prn. Labs: BUN 63 H CREAT 1.48 H GLU 353 H ALB 2.1 L BM: Pt had no BM reported today per RN doc Skin: BS 12 high risk, full details in pulmonary care nurse note PES: 1) Altered nutrition related lab values r.t current chronic medial condition aeb elev RFT A1C hyperglycemia 2) Decreased nutrient needs r/t adiposity aeb pt`s high BMI of 41.1 kgm Partially resolved, pending a swallow eval 3) Impaired swallowing r.t current medical condition aeb pt`s intubated sedated with NPO Comments Will continue to monitor NPO status, PN tolerance, skin status, pertinent labs and weight trends. Will f/u in 2-3 days. Rec: 1) advance PN support to meet > 75% of needs if PO continues to be poor. 2) continue assistance with meals. 3) continue current plan of care
--- NOTE | 2020-07-15 14:30 | NUR ---
PAGED PT HR SUSTAINING IN 120-130s. INFORMED, ORDERS GIVEN AND VERIFIED TWICE BY THIS RN.
--- NOTE | 2020-07-15 14:30 | NUR ---
WOUND CARE NOTE: IN TO SEE PATIENT AT THIS TIME FOR REEVALUATION. PATIENT WAS NOTED UPON ADMIT TO ICU TO HAVE EARLY DTI, WITH MASD/SKIN EROSION TO INTRAGLUTEAL SKIN. WOUND PHOTOS TAKEN AT THIS TIME FOR REFERENCE. HIS DTI IS NOW BRIGHT RED, WITH OPEN SKIN EROSION D/T MASD. PERIWOUND SKIN IS BRIGHT RED. PATIENT HAS GENERLIZED EDEMA NOTED, WITH TAUT SKIN. SKIN IS ALSO VERY MOIST FROM PERSPIRATION. ZGUARD APPLIED TO PARTIAL THICKNESS SKIN EROSION, OPTIFOAM GENTLE SACRAL DRESSING APPLIED TO UPPER SACRUM. PATIENT CONTINUES TO HAVE INTERTRIGO TO LEFT FLANK. PATIENT LEFT AND RIGHT GROIN INTERTRIGO IS RESOLVED AT THIS TIME. BILATERAL PLANTAR # 1 TOES HAVE INTACT DFU ULCERATIONS. NO S/S OF INFECTION OR DRAINAGE NOTED. LEFT OPEN TO AIR. WOUND STATS CAN BE FOUND IN WOUND ASSESSMENT ATTACHED TO THIS NOTE. RECOMMEND:FREQUENT TURN SCHEDULE Q 2 HOURS, PRN CONDITION PERMITS, WITH SIDE TO SIDE POSITIONING, AVOIDING SUPINE POSITION. PRESSURE REDISTRIBUTION USING PILLOWS/WEDGES, NYSTATIN POWDER OR INTERDRY AG TO SKIN FOLD AREAS WITH INTERTRIGINOUS RASH, SKIN/WOUND CARE PLAN, CONTINUED MONITORING BY WOUND CARE TEAM. Addendum: 07/15/20 at 1854 by TRICIA HODGE RN RN Amended: Links added.
[2020-07-15] MEDS ORDERED: METOPROLOL SUCCINATE XL 50 MG TAB PO ONE (14:45)
[2020-07-15 16:00] VITALS: BP 118/82
--- NOTE | 2020-07-15 19:15 | NUR ---
RECEIVED REPORT FROM NURSE HOBBS TO RESUME CARE OF PATIENT.
--- NOTE | 2020-07-15 19:30 | NUR ---
Opening Shift Note Assumed care of patient, awake and alert. No S/S of distress/SOB or pain. Instructed on POC and to call for assist PRN, will continue to monitor for changes Q1hr and PRN.
[2020-07-15 20:00] VITALS: BP 110/72
[2020-07-15] MEDS ORDERED: TPN PER PHARMACY IV NR ×11 (20:00)
[2020-07-15] MEDS: FAMOTIDINE (10MG/ML) 2ML VL IV SCH (20:09)
[2020-07-15] MEDS: METOPROLOL SUCCINATE XL 50 MG TAB PO SCH (20:10)
--- NOTE | 2020-07-15 20:15 | NUR ---
TURNED PATIENT TO LEFT SIDE, OFF LOADED BILATERAL HEELS WITH PILLOW. PATIENT ON SPECIALTY AIR MATTRESS
--- NOTE | 2020-07-15 20:30 | NUR ---
NEURO ROUNDING DR MARK AT BEDSIDE ROUNDING ON PATIENT UPDATED PATIENT STATUS AND PROGRESS, NO NEW ORDERS
[2020-07-16] VITALS: BP 128/83
[2020-07-16] MEDS: D5W 5% 1,000 ML IV SCH ×3 (00:32→20:15)
[2020-07-16] MEDS: LINEZOLID 600MG/300ML 300 ML IV SCH ×2 (00:32→11:27)
[2020-07-16] MEDS: FREE WATER GT SCH ×9 (00:33→23:00)
[2020-07-16] MEDS: ACCU-CHEK COMFORT CURVE STRIP VI SCH ×4 (00:33→18:08)
[2020-07-16] MEDS: InsuLIN REG 1unit/0.01ml Soln (100units/ml) SC SCH ×4 (00:48→18:28)
[2020-07-16] MEDS: MEROPENEM 1GM IVPB 100 ML IV SCH ×3 (02:13→18:08)
[2020-07-16 04:00] VITALS: BP 125/84
[2020-07-16 04:59] LABS: Basophils # (auto) 0.1 10 ^3/uL (0-0.2); Basophils % (auto) 0.4 % (0.0-2.0); Eosinophils # (auto) 0 10 ^3/uL (0-0.8); Hematocrit 43.1 % (41.0-53.0); Hemoglobin 13.7 g/dL (13.5-17.5); Lymphocytes # (auto) 0.5 10 ^3/uL (0.4-5.4); Lymphocytes % (auto) 3.4 % (10.0-50.0); Mean Corpuscular Hemoglobin 27.1 pg (28.0-32.0); Mean Corpuscular Hgb Conc. 31.9 g/dL (32.0-36.0); Mean Corpuscular Volume 85.1 fL (80.0-100.0); Monocytes # (auto) 0.9 10 ^3/uL (0-1.3); Monocytes % (auto) 5.4 % (0.0-12.0); Neutrophils # (auto) 14.5 10 ^3/uL (1.6-8.6); Neutrophils % (auto) 90.8 % (37.0-80.0); Nucleated Red Blood Cells % 0.1 %; Platelet Count (auto) 200 10^3/uL (140-450); Red Blood Cells 5.07 10^6/uL (4.5-5.90); Red Cell Distribution Width 18.8 % (11.8-14.3); White Blood Cell 15.9 10^3/uL (4.4-10.8)
[2020-07-16 05:23] LABS: Albumin 2.1 g/dL (3.4-5.0); Calcium 7.8 mg/dL (8.5-10.1); Potassium 4.3 mmol/L (3.5-5.1)
[2020-07-16 05:28] LABS: BUN/Creatinine Ratio 42.9; Bilirubin, Total 1.2 mg/dL (0.2-1.0); Total Protein 5.2 g/dL (6.4-8.2)
[2020-07-16] MEDS: AMIODARONE HCL 200 MG TAB PO SCH ×2 (05:59→18:08)
--- NOTE | 2020-07-16 07:27 | NUR ---
GAVE REPORT TO NURSE SEAN TO RESUME CARE OF PATIENT.
--- NOTE | 2020-07-16 07:30 | NUR ---
Opening Shift Note Assumed care of patient, sleeping, woke up by calling his name, able to tell me where he is and his name. No S/S of distress/SOB or pain noted. Patient able to follow direction, no agitation noted. Will continue to monitor for changes Q1hr and PRN. Addendum: 07/16/20 at 0919 by AMERICO ELLIOTT RN RN Pupil 2 mm reac to light both eyes, on specialty bed.
--- NOTE | 2020-07-16 07:35 | NUR ---
Mouth care provided. Patient sitting up with high carey position for Breakfast, staff assisted patient with breakfast. Turned on TV at this time as well.
[2020-07-16 07:45] VITALS: BP 126/83
--- NOTE | 2020-07-16 08:08 | NUR ---
Dr. Nathan at the bedside, seen and examined patient at this time. Plan to transfer to Tele. EKG A. Fib HR 80-90 /min, vital sign stable, SBP 110-120 mmHg, no fever noted.
[2020-07-16] MEDS: methylPREDNISolone SOD SUCC 40 MG/ML VL IV SCH ×2 (09:27→21:52)
[2020-07-16] MEDS: ENOXAPARIN SOD 150 MG/1 ML SYRINGE SC SCH ×2 (09:27→21:53)
[2020-07-16] MEDS: NYSTATIN TOPICAL POWDER 15GM TOP SCH ×2 (09:27→22:16)
[2020-07-16] MEDS: SODIUM CHLOR 0.9% PF (SALINE LOCK) 10ML VIAL/SYR IV SCH ×2 (09:27→21:52)
[2020-07-16] MEDS: ALLOPURINOL 300 MG TAB PO SCH (09:29)
[2020-07-16] MEDS: METOPROLOL SUCCINATE XL 50 MG TAB PO SCH ×3 (09:29→22:00)
[2020-07-16] MEDS: MICAFUNGIN SODIUM 100 MG in SODIUM CHL 0.9% 100 ML IV SCH (09:43)
--- NOTE | 2020-07-16 10:08 | NUR ---
Received a call from Daughter, password provided, updated patient condition and POC.
--- NOTE | 2020-07-16 10:15 | NUR ---
Received a call from Dr. Odom. Received new orders, patient already on Aggressive scale of insulin. Will carry out. Patient able to drink and tolerated free water as ordered, will continue to monitor and care.
--- NOTE | 2020-07-16 11:00 | NUR ---
Provided free water as ordered per oral.
[2020-07-16 11:36] VITALS: BP 114/78
--- NOTE | 2020-07-16 12:15 | NUR ---
Staff assisted patient with Lunch, no aspiration noted. Patient had 30%.
--- NOTE | 2020-07-16 14:10 | NUR ---
Patient tolerated free water via oral well. No N/V noted.
--- NOTE | 2020-07-16 14:44 | NUR ---
PT at the bedside.
--- NOTE | 2020-07-16 14:52 | NUR ---
[facility] pt transferred to floor EVENS KAPADIA transferred to 281B via hospital bed with specialty mattress on personnel monitor (Tele#[id number]) and room air. All patient medications and personal belongings transferred with patient to receiving floor. Patient care transferred to Noni IBARRA.
--- NOTE | 2020-07-16 14:58 | NUR ---
Called and spoke to daughter, informed that patient will transfer to [facility].
--- NOTE | 2020-07-16 15:00 | NUR ---
Dr. Gomez at the bedside, no new order at this time, patient is on room air O2 saturation 95-98% and transfer to Tele today.
[2020-07-16 17:00] VITALS: BP 116/73
--- NOTE | 2020-07-16 20:00 | NUR ---
Opening Shift Note Assumed care of patient, awake and alert, oriented to self, lethargic. On room air with even and unlabored respirations, no S/S of distress/SOB or pain. SCD's on to bilateral legs, machine on. Bed in low locked position with side rails up x 2 and call light within reach, bed alarm on. Instructed on POC and to call for assist PRN, will continue to monitor for changes Q1hr and PRN.
[2020-07-16] MEDS: FAMOTIDINE (10MG/ML) 2ML VL IV SCH (21:52)
[2020-07-16 23:44] VITALS: BP 127/87
[2020-07-17] MEDS: ACCU-CHEK COMFORT CURVE STRIP VI SCH ×4 (00:05→18:00)
[2020-07-17] MEDS: LINEZOLID 600MG/300ML 300 ML IV SCH ×3 (00:05→23:16)
[2020-07-17] MEDS: InsuLIN REG 1unit/0.01ml Soln (100units/ml) SC SCH ×5 (00:22→23:54)
[2020-07-17] MEDS: FREE WATER GT SCH ×8 (02:00→23:16)
[2020-07-17] MEDS: MEROPENEM 1GM IVPB 100 ML IV SCH ×3 (02:44→18:51)
[2020-07-17 05:52] VITALS: BP 121/79
[2020-07-17] MEDS: D5W 5% 1,000 ML IV SCH ×3 (06:15→23:08)
--- NOTE | 2020-07-17 06:20 | NUR ---
Oral Hygiene patient more awake and alert, oriented x 2, follows direction. oral hygiene performed, patient tolerated well.
[2020-07-17] MEDS: AMIODARONE HCL 200 MG TAB PO SCH ×2 (06:38→18:52)
[2020-07-17 06:53] LABS: Eosinophils # (auto) 0 10 ^3/uL (0-0.8); Lymphocytes # (auto) 0.5 10 ^3/uL (0.4-5.4); Monocytes # (auto) 0.9 10 ^3/uL (0-1.3); White Blood Cell 16.3 10^3/uL (4.4-10.8)
[2020-07-17 06:54] LABS: Basophils # (auto) 0.2 10 ^3/uL (0-0.2); Hemoglobin 12.3 g/dL (13.5-17.5); Lymphocytes % (auto) 3.2 % (10.0-50.0); Mean Corpuscular Hemoglobin 27.9 pg (28.0-32.0); Mean Corpuscular Hgb Conc. 31.6 g/dL (32.0-36.0); Mean Corpuscular Volume 88.4 fL (80.0-100.0); Monocytes % (auto) 5.7 % (0.0-12.0); Neutrophils # (auto) 14.6 10 ^3/uL (1.6-8.6); Neutrophils % (auto) 90.1 % (37.0-80.0); Nucleated Red Blood Cells % 0.1 %; Platelet Count (auto) 159 10^3/uL (140-450); Red Blood Cells 4.41 10^6/uL (4.5-5.90); Red Cell Distribution Width 19.2 % (11.8-14.3)
--- NOTE | 2020-07-17 07:01 | NUR ---
Closing Note patient resting in bed with even and unlabored respirations, noted chest rise and fall, HOB elevated. no s/s of distress. PIV intact and patent infusing IVF per orders. SCD's on to bilateral legs with machine on. bed in low locked position with side rails up x 2 and call light within reach.
--- NOTE | 2020-07-17 07:37 | NUR ---
Opening Shift Note Assumed care of patient from noc shift rn, asleep but easily aroused, oriented to self, lethargic. On room air with even and unlabored respirations, no S/S of distress/SOB, denies pain. SCD's on to bilateral legs, machine on. Bed in low locked position with side rails up x 2 and call light within reach, bed alarm on. Instructed on POC and to call for assist PRN, will continue to monitor for changes Q1hr and PRN.
[2020-07-17 08:00] VITALS: BP 106/67
[2020-07-17 08:38] VITALS: BP 106/67
[2020-07-17] MEDS: methylPREDNISolone SOD SUCC 40 MG/ML VL IV SCH ×2 (09:45→22:39)
[2020-07-17] MEDS: FAMOTIDINE (10MG/ML) 2ML VL IV SCH ×2 (09:46→22:39)
[2020-07-17] MEDS: ALLOPURINOL 300 MG TAB PO SCH (09:48)
[2020-07-17] MEDS: METOPROLOL SUCCINATE XL 50 MG TAB PO SCH ×2 (09:48→23:14)
[2020-07-17] MEDS: ENOXAPARIN SOD 150 MG/1 ML SYRINGE SC SCH ×2 (09:49→23:15)
[2020-07-17] MEDS: MICAFUNGIN SODIUM 100 MG in SODIUM CHL 0.9% 100 ML IV SCH (10:00)
[2020-07-17] MEDS: SODIUM CHLOR 0.9% PF (SALINE LOCK) 10ML VIAL/SYR IV SCH ×2 (10:06→22:00)
[2020-07-17 10:58] LABS: Potassium 4.1 mmol/L (3.5-5.1)
[2020-07-17 11:08] LABS: Albumin 2.1 g/dL (3.4-5.0); BUN/Creatinine Ratio 42.4; Bilirubin, Total 1.2 mg/dL (0.2-1.0); Calcium 7.7 mg/dL (8.5-10.1); Total Protein 5.1 g/dL (6.4-8.2)
[2020-07-17] MEDS: NYSTATIN TOPICAL POWDER 15GM TOP SCH ×2 (11:37→22:00)
[2020-07-17 12:33] VITALS: BP 141/87
--- NOTE | 2020-07-17 12:47 | NUR ---
Nutrition Followup Notes Wt: 163. kg Pt was awake but did not seem to be very oriented when rounded this am. pt is now off PN support currently on pureed diet with inadequate Po of < 50% x 4 per RN doc Est Energy needs ABW 121 [id number] kcals (17-20 kcal/kgABW), Est Protein needs: 121-133 gms/day (1.0-1.1 gm/kgABW). Will continue to monitor and reassess prn. Labs: BUN 63 H CREAT 1.47 H GLU 279 H ALB 2.1 L BM: Pt had no BM reported today per RN doc Skin: BS 13 mod risk, full details in veterinarian laboratory animal care note PES: 1) Altered nutrition related lab values r.t current chronic medial condition aeb elev RFT A1C hyperglycemia 2) Decreased nutrient needs r/t adiposity aeb pt`s high BMI of 41.1 kgm Partially resolved, pending a swallow eval 3) Impaired swallowing r.t current medical condition aeb pt`s intubated sedated with NPO Comments Will continue to monitor PO intake, skin status, pertinent labs and weight trends. Will f/u in 3-5 days. Rec: 1) resume PN support if PO continues to be low. 2) consider CCHO 60 gm along with current diet. 3) consider Glucerna 1 carton bid if PO continues to be low. 4) continue assistance with meals. 5) continue current plan of care
--- NOTE | 2020-07-17 13:20 | NUR ---
observed patient to be more alert and awake at noon time, watching tv and following directions.
--- NOTE | 2020-07-17 14:10 | NUR ---
spoke to daughter Sri few times, gave her updates on POC.
[2020-07-17 16:58] VITALS: BP 131/88
--- NOTE | 2020-07-17 20:00 | NUR ---
Patient status Recieved pt on bed with running iv fluids, alicia catheter draining dark yellowish output, and SCDs on bilat feet working. PICC x 3 lumen dressing changed, tolerated. Pt alert and oriented and able to verbally respond with few words. No noted respiratory distress, verbally denied need for 02 at this time.
--- NOTE | 2020-07-17 22:00 | NUR ---
SWALLOW test Pt passed RN swallow test and able to tolerate due oral medication without any issue. Respirations normal and dimished bilaterally. Alert and oriented able to follow commands.
[2020-07-17 22:09] VITALS: BP 133/78
[2020-07-18] MEDS: ACCU-CHEK COMFORT CURVE STRIP VI SCH ×5 (00:16→23:48)
[2020-07-18] MEDS: MEROPENEM 1GM IVPB 100 ML IV SCH ×3 (02:00→17:24)
[2020-07-18] MEDS: FREE WATER GT SCH ×8 (02:03→23:00)
[2020-07-18 05:00] VITALS: BP 139/61
[2020-07-18 05:53] LABS: Basophils # (auto) 0.1 10 ^3/uL (0-0.2); Basophils % (auto) 0.3 % (0.0-2.0); Eosinophils # (auto) 0 10 ^3/uL (0-0.8); Hematocrit 41.9 % (41.0-53.0); Hemoglobin 13.9 g/dL (13.5-17.5); Lymphocytes # (auto) 0.4 10 ^3/uL (0.4-5.4); Lymphocytes % (auto) 1.8 % (10.0-50.0); Mean Corpuscular Hgb Conc. 33.2 g/dL (32.0-36.0); Mean Corpuscular Volume 84.5 fL (80.0-100.0); Monocytes # (auto) 0.7 10 ^3/uL (0-1.3); Monocytes % (auto) 3.3 % (0.0-12.0); Neutrophils # (auto) 19.2 10 ^3/uL (1.6-8.6); Neutrophils % (auto) 94.6 % (37.0-80.0); Platelet Count (auto) 205 10^3/uL (140-450); Red Blood Cells 4.96 10^6/uL (4.5-5.90); Red Cell Distribution Width 18.8 % (11.8-14.3); White Blood Cell 20.3 10^3/uL (4.4-10.8)
[2020-07-18] MEDS: AMIODARONE HCL 200 MG TAB PO SCH ×2 (06:03→17:13)
[2020-07-18] MEDS: InsuLIN REG 1unit/0.01ml Soln (100units/ml) SC SCH ×4 (06:05→23:50)
[2020-07-18 06:07] LABS: Albumin 2.2 g/dL (3.4-5.0); Calcium 7.7 mg/dL (8.5-10.1); Potassium 4.3 mmol/L (3.5-5.1)
[2020-07-18 06:10] LABS: BUN/Creatinine Ratio 40.7; Bilirubin, Total 1.1 mg/dL (0.2-1.0); Total Protein 5.2 g/dL (6.4-8.2)
--- NOTE | 2020-07-18 07:11 | NUR ---
End of shift events: Pt alert and oriented able to stand eye contact. Nodded head when asked if he's okay. Noted feeling of thirst, requested water few times during shift. Still draining dark urine output with sediments. Denied pain except when moving both arms, would do facial grimacing. Wet towel placed on forehead d/t excessive sweating. Bilat SCD's in place. Repositioned as indicated. Had a smear of bowel middle of the shift cleaned appropriately, cream placed on buttom and mepilex over it. Elevated bilat feet heels floated. Tolerated crushed medication with sugar-free jello. Will endorse.
--- NOTE | 2020-07-18 07:30 | NUR ---
Opening Note Received report from night custodian RN. Patient is resting in bed, no sign or symptom of distress noted at this time. Patient is on room air. Patient opens eyes shaking. Patient able to state first name only, patient does not not answer any other questions. Dennison catheter in place, patent and draining dark angelica colored urine. Bed in low and locked position, call light within reach. Will continue to monitor Q1 hour and PRN.
[2020-07-18 09:00] VITALS: BP 120/81
[2020-07-18] MEDS: FAMOTIDINE (10MG/ML) 2ML VL IV SCH ×2 (09:30→22:41)
[2020-07-18] MEDS: MICAFUNGIN SODIUM 100 MG in SODIUM CHL 0.9% 100 ML IV SCH (09:30)
[2020-07-18] MEDS: ENOXAPARIN SOD 150 MG/1 ML SYRINGE SC SCH ×2 (09:30→22:42)
[2020-07-18] MEDS: methylPREDNISolone SOD SUCC 40 MG/ML VL IV SCH ×2 (09:31→22:41)
[2020-07-18] MEDS: SODIUM CHLOR 0.9% PF (SALINE LOCK) 10ML VIAL/SYR IV SCH ×2 (09:47→22:41)
[2020-07-18] MEDS: ALLOPURINOL 300 MG TAB PO SCH (09:47)
[2020-07-18] MEDS: METOPROLOL SUCCINATE XL 50 MG TAB PO SCH ×2 (09:47→22:00)
[2020-07-18] MEDS: NYSTATIN TOPICAL POWDER 15GM TOP SCH ×2 (09:52→22:00)
--- NOTE | 2020-07-18 10:00 | NUR ---
PO medications Patient unable to swallow PO medications at this time. Patient not awake enough to follow commands. Will notify MD. Will continue to monitor Q1 hour and PRN.
--- NOTE | 2020-07-18 10:30 | NUR ---
Dr. Analia Nathan at bedside MD at bedside discussing plan of care with this NR. New orders received. Will continue to monitor Q1 hour and PRN.
--- NOTE | 2020-07-18 12:13 | NUR ---
Physical Therapy at bedside PT at bedside working with patient.
[2020-07-18 13:00] VITALS: BP 135/80
[2020-07-18] MEDS: LINEZOLID 600MG/300ML 300 ML IV SCH ×2 (13:56→23:48)
[2020-07-18] MEDS: D5W 5% 1,000 ML IV SCH (13:56)
[2020-07-18 17:00] VITALS: BP 143/90
[2020-07-18] MEDS: SOD CHL 0.45% 1,000 ML IV SCH (17:12)
--- NOTE | 2020-07-18 19:20 | NUR ---
Opening Shift Note Assumed care of patient after receiving report from STACEY Mesa. Patient is asleep and opens eyes to name and shaking, with no S/S of distress/SOB or pain. Bed in lowest locked position x2 side rails, HOB semi fowlers. Instructed on POC and to call for assist PRN, will continue to monitor for changes Q1hr and PRN.
--- NOTE | 2020-07-18 19:28 | NUR ---
Closing Note Report given to foreman/pile driving and erection RN. No signs or symptoms of distress noted at this time.
[2020-07-18 22:00] VITALS: BP 123/67
[2020-07-19] MEDS: MEROPENEM 1GM IVPB 100 ML IV SCH ×3 (02:00→17:32)
[2020-07-19] MEDS: FREE WATER GT SCH ×8 (02:00→22:59)
--- NOTE | 2020-07-19 02:10 | NUR ---
Patient talking/awake Upon entering the room for patient rounds, patients eyes were open and tracked RN. RN spoke with patient, patient answered appropriately.
[2020-07-19] MEDS: AMIODARONE HCL 200 MG TAB PO SCH ×2 (06:11→17:33)
[2020-07-19] MEDS: SOD CHL 0.45% 1,000 ML IV SCH ×3 (06:22→22:58)
[2020-07-19] MEDS: ACCU-CHEK COMFORT CURVE STRIP VI SCH ×3 (06:29→17:32)
[2020-07-19] MEDS: InsuLIN REG 1unit/0.01ml Soln (100units/ml) SC SCH ×3 (06:32→17:34)
--- NOTE | 2020-07-19 07:07 | NUR ---
BM, Dressing changed Changed dressing to sacrum. Patient was noted to have small amount of BM at this time. Patient was cleaned up and repositioned for comfort.
--- NOTE | 2020-07-19 08:15 | NUR ---
Called nuclear medicine Called regarding order for VQ scan, tech states they will try to get to the patient today. They were unable to complete the test yesterday.
--- NOTE | 2020-07-19 08:27 | NUR ---
Opening Shift Note Assumed care of patient, awake, A/O x 2. Sitting in high fowlers position upon entering the room, can state name and birthday but cannot state where he is or why. No S/S of distress/SOB or pain. Skin is moist and warm. Right extremity 2 + edema, right bruise noted in the groin area and small scattered nodules under the skin were noted on the abdomen upon palpation. Bed is in lowest position and the call light is within reach of the patient. Instructed the patient to call for assist PRN, will continue to monitor for changes Q1hr and PRN.
[2020-07-19 09:00] VITALS: BP 142/75
--- NOTE | 2020-07-19 09:01 | NUR ---
SS call to the patient Social service called in to the room and spoke with patient.
--- NOTE | 2020-07-19 10:07 | NUR ---
Dr. Analia Nathan at bedside MD at bedside discussing plan of care with patient and this RN. New orders received. Will continue to monitor Q1 hour and PRN.
[2020-07-19] MEDS: MICAFUNGIN SODIUM 100 MG in SODIUM CHL 0.9% 100 ML IV SCH (10:29)
[2020-07-19] MEDS: FAMOTIDINE (10MG/ML) 2ML VL IV SCH ×2 (10:30→22:02)
[2020-07-19] MEDS: METOPROLOL SUCCINATE XL 50 MG TAB PO SCH ×2 (10:31→22:03)
[2020-07-19] MEDS: ALLOPURINOL 300 MG TAB PO SCH (10:31)
[2020-07-19] MEDS: ENOXAPARIN SOD 150 MG/1 ML SYRINGE SC SCH ×2 (10:31→22:03)
[2020-07-19] MEDS: SODIUM CHLOR 0.9% PF (SALINE LOCK) 10ML VIAL/SYR IV SCH ×2 (10:33→22:02)
[2020-07-19] MEDS: NYSTATIN TOPICAL POWDER 15GM TOP SCH ×2 (10:35→22:03)
--- NOTE | 2020-07-19 10:40 | NUR ---
urine collected and sent to lab
--- NOTE | 2020-07-19 11:44 | NUR ---
Family Contacted Dr. Nathan contacted daughter updating on patient's status and current condition. Will continue to monitor the patient.
[2020-07-19] MEDS: LINEZOLID 600MG/300ML 300 ML IV SCH (12:13)
[2020-07-19 13:00] VITALS: BP 136/86
--- NOTE | 2020-07-19 13:25 | NUR ---
Patient taken down to radiology
--- NOTE | 2020-07-19 14:07 | NUR ---
patient back to room
[2020-07-19 16:48] VITALS: BP 119/87
--- NOTE | 2020-07-19 18:56 | NUR ---
Closing Note Report given to operations supervisor 2nd shift RN. No signs or symptoms of distress noted at this time.
[2020-07-19] MEDS ORDERED: LORazepam 2MG/ML-1ML VIAL IV PRN (19:30)
[2020-07-19 22:20] VITALS: BP 111/72
[2020-07-20] MEDS: ACCU-CHEK COMFORT CURVE STRIP VI SCH ×5 (00:06→23:38)
[2020-07-20] MEDS: InsuLIN REG 1unit/0.01ml Soln (100units/ml) SC SCH ×5 (00:14→23:38)
[2020-07-20] MEDS: FREE WATER GT SCH ×8 (02:00→22:34)
[2020-07-20] MEDS: MEROPENEM 1GM IVPB 100 ML IV SCH ×3 (02:34→17:21)
[2020-07-20 05:09] VITALS: BP 99/73
[2020-07-20 05:44] LABS: Potassium 3.9 mmol/L (3.5-5.1)
[2020-07-20 05:50] LABS: Albumin 2.1 g/dL (3.4-5.0); BUN/Creatinine Ratio 40.5; Bilirubin, Total 1.4 mg/dL (0.2-1.0); Calcium 7.3 mg/dL (8.5-10.1); Total Protein 4.6 g/dL (6.4-8.2)
[2020-07-20] MEDS: AMIODARONE HCL 200 MG TAB PO SCH ×2 (07:11→17:00)
--- NOTE | 2020-07-20 07:15 | NUR ---
Opening Shift Note Assumed care of patient awake and alert. No S/S of distress/SOB or pain. Instructed patient on plan of care and to call for assist when needed. Will continue to monitor for changes Q1hr and PRN. Bed locked in lowest position, HOB elevated at least 30 degrees, call light is within reach and side rails up x 2.
[2020-07-20] MEDS: SOD CHL 0.45% 1,000 ML IV SCH ×2 (08:23→17:51)
--- NOTE | 2020-07-20 09:14 | NUR ---
MD ROUNDS DR ANGULO AT BEDSIDE. ORDERS RECEIVED FOR PHYSICAL THERAPY AND USE OF INCENTIVE SPIROMETER
[2020-07-20 09:27] VITALS: BP 116/80
[2020-07-20] MEDS: FAMOTIDINE (10MG/ML) 2ML VL IV SCH ×2 (09:33→22:34)
[2020-07-20] MEDS: METOPROLOL SUCCINATE XL 50 MG TAB PO SCH ×2 (09:34→22:33)
[2020-07-20] MEDS: ALLOPURINOL 300 MG TAB PO SCH (09:34)
[2020-07-20] MEDS: SODIUM CHLOR 0.9% PF (SALINE LOCK) 10ML VIAL/SYR IV SCH ×2 (11:25→22:32)
[2020-07-20] MEDS: NYSTATIN TOPICAL POWDER 15GM TOP SCH ×2 (11:25→22:34)
--- NOTE | 2020-07-20 11:55 | NUR ---
Nutrition Followup Notes Wt: 157.1 kg Pt sleeping when rounded this am. pt is currently on pureed diet with inadequate Po of < 50% x 2 days per RN doc Est Energy needs ABW 121 [id number] kcals (17-20 kcal/kgABW), Est Protein needs: 121-133 gms/day (1.0-1.1 gm/kgABW). Will continue to monitor and reassess prn. Labs: BUN 53 H CREAT 1.31 H GLU 192 H ALB 2.1 L BM: Pt had 1 BM today per RN doc Skin: BS 8 high risk, full details in manager of care note PES: 1) Altered nutrition related lab values r.t current chronic medial condition aeb elev RFT A1C hyperglycemia 2) Decreased nutrient needs r/t adiposity aeb pt`s high BMI of 41.1 kgm Partially resolved, pending a swallow eval 3) Impaired swallowing r.t current medical condition aeb pt`s intubated sedated with NPO Comments Will continue to monitor PO intake, skin status, pertinent labs and weight trends. Will f/u in 3-5 days. Rec: 1) resume PN support if PO continues to be low. 2) consider CCHO 60 gm along with current diet. 3) consider Glucerna 1 carton bid if PO continues to be low. 4) continue assistance with meals. 5) consider MVI/C bid. 6) continue current plan of care
[2020-07-20] MEDS: MICAFUNGIN SODIUM 100 MG in SODIUM CHL 0.9% 100 ML IV SCH (12:17)
[2020-07-20 13:06] VITALS: BP 114/75
[2020-07-20 16:32] VITALS: BP 112/75
--- NOTE | 2020-07-20 19:21 | NUR ---
CLOSING NOTE ENDORSED CARE TO NOC SHIFT RN
[2020-07-20 23:43] VITALS: BP 105/64
[2020-07-20 23:50] VITALS: BP_SYST 131
[2020-07-21] MEDS: FREE WATER GT SCH ×9 (01:17→21:56)
[2020-07-21] MEDS: MEROPENEM 1GM IVPB 100 ML IV SCH ×3 (01:18→17:46)
--- NOTE | 2020-07-21 05:00 | NUR ---
wound care changed dressing at sacrum per order
[2020-07-21] MEDS: SOD CHL 0.45% 1,000 ML IV SCH (05:12)
[2020-07-21] MEDS: AMIODARONE HCL 200 MG TAB PO SCH ×2 (05:13→17:43)
[2020-07-21] MEDS: InsuLIN REG 1unit/0.01ml Soln (100units/ml) SC SCH ×3 (05:14→17:53)
[2020-07-21] MEDS: ACCU-CHEK COMFORT CURVE STRIP VI SCH ×3 (05:14→17:53)
[2020-07-21 05:51] VITALS: BP 116/72
[2020-07-21 06:00] VITALS: BP 116/72
[2020-07-21 06:43] LABS: Potassium 4.1 mmol/L (3.5-5.1)
[2020-07-21 06:53] LABS: Albumin 2.2 g/dL (3.4-5.0); BUN/Creatinine Ratio 34.9; Bilirubin, Total 1.5 mg/dL (0.2-1.0); Calcium 7.5 mg/dL (8.5-10.1); Total Protein 4.9 g/dL (6.4-8.2)
--- NOTE | 2020-07-21 06:56 | NUR ---
closing note pt is resting in semi fowlers with HOB at 30 degrees. no s/s of pain or distress. respirations nonlabored on room air. endorsed care to day shift STACEY Angel.
[2020-07-21 09:00] VITALS: BP 99/72
--- NOTE | 2020-07-21 10:00 | NUR ---
MD ROUNDS DR ANGULO AT BEDSIDE. NO NEW ORDERS AT THIS TIME. CONTINUE CARE.
[2020-07-21] MEDS: FAMOTIDINE (10MG/ML) 2ML VL IV SCH ×2 (10:03→21:54)
[2020-07-21] MEDS: ALLOPURINOL 300 MG TAB PO SCH (10:03)
[2020-07-21] MEDS: METOPROLOL SUCCINATE XL 50 MG TAB PO SCH ×2 (10:04→21:54)
[2020-07-21] MEDS: NYSTATIN TOPICAL POWDER 15GM TOP SCH ×2 (10:20→21:54)
[2020-07-21] MEDS: SODIUM CHLOR 0.9% PF (SALINE LOCK) 10ML VIAL/SYR IV SCH ×2 (10:20→21:54)
[2020-07-21] MEDS: MICAFUNGIN SODIUM 100 MG in SODIUM CHL 0.9% 100 ML IV SCH (10:20)
[2020-07-21] MEDS: D5W 5% 1,000 ML IV SCH ×2 (11:43→18:23)
[2020-07-21 13:00] VITALS: BP 113/74
--- NOTE | 2020-07-21 19:13 | NUR ---
CLOSING NOTE ENDORSED CARE TO NOC SHIFT RN
[2020-07-21] MEDS ORDERED: LORazepam 2MG/ML-1ML VIAL IV PRN (19:15)
--- NOTE | 2020-07-21 19:15 | NUR ---
Opening Shift Note Assumed care of patient, awake and alert. No S/S of distress/SOB or pain. Instructed on POC and to call for assist PRN, will continue to monitor for changes Q1hr and PRN. Side rails up x2. Bed locked in lowest position. Call light within reach. Addendum: 07/21/20 at 2321 by TONY BACA RN RN Patient oriented to self only. Limited speech with mainly yes or no answers.
[2020-07-21 22:00] VITALS: BP 104/80
[2020-07-22] MEDS: ACCU-CHEK COMFORT CURVE STRIP VI SCH ×5 (00:16→23:45)
[2020-07-22] MEDS: InsuLIN REG 1unit/0.01ml Soln (100units/ml) SC SCH ×5 (00:17→23:45)
[2020-07-22] MEDS: FREE WATER GT SCH ×9 (01:03→23:46)
[2020-07-22] MEDS: MEROPENEM 1GM IVPB 100 ML IV SCH ×2 (01:04→11:00)
[2020-07-22 05:00] VITALS: BP 104/69
[2020-07-22] MEDS: D5W 5% 1,000 ML IV SCH ×3 (05:29→23:46)
[2020-07-22] MEDS: AMIODARONE HCL 200 MG TAB PO SCH ×2 (05:30→18:29)
[2020-07-22 06:50] LABS: Potassium 3.8 mmol/L (3.5-5.1)
[2020-07-22 06:58] LABS: BUN/Creatinine Ratio 33.6; Bilirubin, Total 1.5 mg/dL (0.2-1.0); Total Protein 4.5 g/dL (6.4-8.2)
--- NOTE | 2020-07-22 07:30 | NUR ---
Opening Shift Note Assuming care of patient at this time. Patient is awake and alert to his name and date of , as well as the year. Patient does not know where he is located or how he got here. Patient denies pain. Patient shows no signs or symptoms of distress or shortness of breath. Bed is locked and lowered with side rails up x2. Instructed patient on the plan of care for today and to call for assistance as needed. Call light within reach. Will continue to round hourly and as needed.
[2020-07-22 08:00] VITALS: BP 97/76
--- NOTE | 2020-07-22 08:34 | NUR ---
MRI Patient unable to do MRI at this facility as he exceeds weight limit. Will notify
[2020-07-22] MEDS: ALLOPURINOL 300 MG TAB PO SCH (11:00)
[2020-07-22] MEDS: MICAFUNGIN SODIUM 100 MG in SODIUM CHL 0.9% 100 ML IV SCH (11:00)
[2020-07-22] MEDS: SODIUM CHLOR 0.9% PF (SALINE LOCK) 10ML VIAL/SYR IV SCH ×2 (11:00→22:13)
[2020-07-22] MEDS: NYSTATIN TOPICAL POWDER 15GM TOP SCH ×2 (11:00→22:13)
[2020-07-22] MEDS: FAMOTIDINE (10MG/ML) 2ML VL IV SCH ×2 (11:00→22:13)
[2020-07-22] MEDS: METOPROLOL SUCCINATE XL 50 MG TAB PO SCH ×2 (11:30→22:14)
[2020-07-22 12:13] LABS: Basophils # (auto) 0 10 ^3/uL (0-0.2); Basophils % (auto) 0.1 % (0.0-2.0); Eosinophils # (auto) 0.1 10 ^3/uL (0-0.8); Eosinophils % (auto) 0.9 % (0.0-7.0); Hematocrit 33.2 % (41.0-53.0); Hemoglobin 10.8 g/dL (13.5-17.5); Lymphocytes % (auto) 6.9 % (10.0-50.0); Mean Corpuscular Hemoglobin 28.4 pg (28.0-32.0); Mean Corpuscular Hgb Conc. 32.4 g/dL (32.0-36.0); Mean Corpuscular Volume 87.7 fL (80.0-100.0); Monocytes # (auto) 1.6 10 ^3/uL (0-1.3); Monocytes % (auto) 11.8 % (0.0-12.0); Neutrophils # (auto) 11.1 10 ^3/uL (1.6-8.6); Neutrophils % (auto) 80.3 % (37.0-80.0); Nucleated Red Blood Cells % 0.2 %; Platelet Count (auto) 129 10^3/uL (140-450); Red Blood Cells 3.78 10^6/uL (4.5-5.90); Red Cell Distribution Width 19.5 % (11.8-14.3); White Blood Cell 13.8 10^3/uL (4.4-10.8)
[2020-07-22 13:00] VITALS: BP 108/70
[2020-07-22] MEDS ORDERED: DIGOXIN 0.25 MG TAB PO ONE (14:00)
--- NOTE | 2020-07-22 15:00 | NUR ---
WOUND CARE NOTE: IN TO SEE PATIENT AT THIS TIME FOR REEVALUATION. PATIENT WAS NOTED TO HAVE EARLY DTI, WITH MASD/SKIN EROSION TO INTRAGLUTEAL SKIN. WOUND PHOTOS TAKEN AT THIS TIME FOR REFERENCE. HIS DTI IS NOW BRIGHT RED, WITH OPEN SKIN EROSION D/T MASD. PERIWOUND SKIN IS BRIGHT RED. PATIENT HAS GENERALIZED EDEMA NOTED, WITH TAUT SKIN. SKIN IS ALSO VERY MOIST FROM PERSPIRATION. ZGUARD APPLIED TO PARTIAL THICKNESS SKIN EROSION, OPTIFOAM GENTLE SACRAL DRESSING APPLIED TO UPPER SACRUM. PATIENT HAS BRUISING TO LEFT FLANK. BILATERAL PLANTAR # 1 TOES HAVE INTACT DFU ULCERATIONS. NO S/S OF INFECTION OR DRAINAGE NOTED. LEFT OPEN TO AIR. WOUND STATS CAN BE FOUND IN WOUND ASSESSMENT ATTACHED TO THIS NOTE. RECOMMEND:FREQUENT TURN SCHEDULE Q 2 HOURS, PRN CONDITION PERMITS, WITH SIDE TO SIDE POSITIONING, AVOIDING SUPINE POSITION. PRESSURE REDISTRIBUTION USING PILLOWS/WEDGES, SKIN/WOUND CARE PLAN, CONTINUED MONITORING BY WOUND CARE TEAM. Addendum: 07/22/20 at 1713 by TRICIA HODGE RN RN Amended: Links added.
[2020-07-22 17:00] VITALS: BP 103/68
--- NOTE | 2020-07-22 19:00 | NUR ---
Opening Shift Note Assumed care of patient, awake and alert oriented x2. Patient able to verbalize needs. No S/S of distress/SOB or pain. Instructed on POC and to call for assist PRN, will continue to monitor for changes Q1hr and PRN. Side rails up x2. Bed locked in lowest position. Call light within reach.
--- NOTE | 2020-07-22 19:17 | NUR ---
Closing Shift Note Patient resting in bed. No distress noted. Report given. Will endorse care to the forklift truck operator RN.
--- NOTE | 2020-07-22 20:45 | NUR ---
Dr. Barrios at bedside.
[2020-07-22 22:00] VITALS: BP_SYST 125; BP_SYST 143; BP_DIAS 77; BP_DIAS 83
[2020-07-23 05:00] VITALS: BP 128/84
[2020-07-23] MEDS: FREE WATER GT SCH ×7 (05:00→22:55)
[2020-07-23 05:38] LABS: Albumin 2.2 g/dL (3.4-5.0); Calcium 7.5 mg/dL (8.5-10.1); Potassium 3.6 mmol/L (3.5-5.1)
[2020-07-23] MEDS: ACCU-CHEK COMFORT CURVE STRIP VI SCH ×3 (05:38→17:24)
[2020-07-23] MEDS: AMIODARONE HCL 200 MG TAB PO SCH ×2 (05:38→17:28)
[2020-07-23] MEDS: InsuLIN REG 1unit/0.01ml Soln (100units/ml) SC SCH ×3 (05:39→17:28)
[2020-07-23 05:44] LABS: BUN/Creatinine Ratio 30.1; Bilirubin, Total 1.7 mg/dL (0.2-1.0); Total Protein 4.9 g/dL (6.4-8.2)
[2020-07-23 09:00] VITALS: BP 130/78
[2020-07-23] MEDS: METOPROLOL SUCCINATE XL 50 MG TAB PO SCH ×2 (10:14→21:51)
[2020-07-23] MEDS: ALLOPURINOL 300 MG TAB PO SCH (10:14)
[2020-07-23] MEDS: DIGOXIN 0.125 MG TAB PO SCH (10:14)
[2020-07-23] MEDS: FAMOTIDINE (10MG/ML) 2ML VL IV SCH ×2 (10:14→21:32)
[2020-07-23] MEDS: SODIUM CHLOR 0.9% PF (SALINE LOCK) 10ML VIAL/SYR IV SCH ×2 (10:15→22:54)
[2020-07-23] MEDS: D5W 5% 1,000 ML IV SCH ×2 (10:26→20:57)
--- NOTE | 2020-07-23 11:04 | NUR ---
Dr. Nathan discussed and up date a plan of care to patient's daughter.
--- NOTE | 2020-07-23 12:45 | NUR ---
Nutrition Followup Notes Wt: 157.9 kg Pt sleeping when rounded this am. pt is currently on pureed diet with inadequate Po of < 50% x 2 days per RN doc Est Energy needs ABW 121 [id number] kcals (17-20 kcal/kgABW), Est Protein needs: 121-133 gms/day (1.0-1.1 gm/kgABW). Will continue to monitor and reassess prn. Labs: BUN 31 H, MONY 1.7 H ALB 2.2 L BM: Pt had 1 BM 07/22 per RN doc Skin: BS 12 high risk, full details in director career services note PES: 1) Altered nutrition related lab values r.t current chronic medial condition aeb elev RFT A1C hyperglycemia 2) Decreased nutrient needs r/t adiposity aeb pt`s high BMI of 41.1 kgm Partially resolved, pending a swallow eval 3) Impaired swallowing r.t current medical condition aeb pt`s intubated sedated with NPO Comments Will continue to monitor PO intake, skin status, pertinent labs and weight trends. Will f/u in 3-5 days. Rec: 1) resume PN support if PO continues to be low. 2) consider CCHO 60 gm along with current diet. 3) consider Glucerna 1 carton bid if PO continues to be low. 4) continue assistance with meals. 5) consider MVI/C bid. 6) continue current plan of care
[2020-07-23 13:00] VITALS: BP 109/70
[2020-07-23] MEDS: NYSTATIN TOPICAL POWDER 15GM TOP SCH ×2 (13:45→22:54)
[2020-07-23 17:00] VITALS: BP 137/86
--- NOTE | 2020-07-23 20:00 | NUR ---
Opening Shift Note Assumed care of patient, awake and alert x 1 , No S/S of distress/SOB or pain. Instructed on POC and to call for assist PRN, will continue to monitor for changes Q1hr and PRN.Dennison catheter in placed draining concentrated dark yellow urine output, on air mattress, total care, chemical code only, repositioning done to the left side of the bed., with iv.fluid of D5%w at 100cc/hour, in right upper arm Pic line infusing well.
[2020-07-23 22:00] VITALS: BP 105/74
[2020-07-24] MEDS: ACCU-CHEK COMFORT CURVE STRIP VI SCH ×4 (00:01→17:11)
[2020-07-24] MEDS: InsuLIN REG 1unit/0.01ml Soln (100units/ml) SC SCH ×4 (00:04→17:31)
[2020-07-24] MEDS: FREE WATER GT SCH (02:00)
[2020-07-24 05:00] VITALS: BP 94/71
[2020-07-24 05:51] LABS: Basophils # (auto) 0 10 ^3/uL (0-0.2); Basophils % (auto) 0.1 % (0.0-2.0); Eosinophils # (auto) 0.3 10 ^3/uL (0-0.8); Eosinophils % (auto) 2.3 % (0.0-7.0); Hematocrit 32.5 % (41.0-53.0); Hemoglobin 10.5 g/dL (13.5-17.5); Lymphocytes # (auto) 0.9 10 ^3/uL (0.4-5.4); Lymphocytes % (auto) 6.5 % (10.0-50.0); Mean Corpuscular Hemoglobin 28.3 pg (28.0-32.0); Mean Corpuscular Hgb Conc. 32.3 g/dL (32.0-36.0); Mean Corpuscular Volume 87.6 fL (80.0-100.0); Monocytes # (auto) 1.5 10 ^3/uL (0-1.3); Monocytes % (auto) 10.8 % (0.0-12.0); Neutrophils # (auto) 11.2 10 ^3/uL (1.6-8.6); Neutrophils % (auto) 80.3 % (37.0-80.0); Nucleated Red Blood Cells % 0.1 %; Platelet Count (auto) 176 10^3/uL (140-450); Red Blood Cells 3.71 10^6/uL (4.5-5.90); Red Cell Distribution Width 19.8 % (11.8-14.3)
[2020-07-24] MEDS: AMIODARONE HCL 200 MG TAB PO SCH ×3 (06:00→17:31)
[2020-07-24 06:10] LABS: Potassium 3.9 mmol/L (3.5-5.1)
[2020-07-24 06:17] LABS: BUN/Creatinine Ratio 25.3; Bilirubin, Total 1.8 mg/dL (0.2-1.0); Calcium 7.5 mg/dL (8.5-10.1); Total Protein 4.5 g/dL (6.4-8.2)
[2020-07-24] MEDS: D5W 5% 1,000 ML IV SCH ×2 (06:50→17:11)
--- NOTE | 2020-07-24 07:01 | NUR ---
Report given to Yolande To, patient is resting no distress.
[2020-07-24 09:00] VITALS: BP_SYST 104; BP_SYST 121; BP_DIAS 74; BP_DIAS 84
--- NOTE | 2020-07-24 09:11 | NUR ---
PICC Line Dressing Changes PICC line dressing change done with a sterile technique. Cleansed with chloraprep scrub/betadine. Stat lock, and bio-patch as available. Occlusive dressing applied. Changed claves weekly and post lab draw. See e-MAR for medications given during this visit.
[2020-07-24] MEDS: FAMOTIDINE (10MG/ML) 2ML VL IV SCH ×2 (09:12→22:03)
[2020-07-24] MEDS: DIGOXIN 0.125 MG TAB PO SCH (09:12)
[2020-07-24] MEDS: ALLOPURINOL 300 MG TAB PO SCH (09:12)
[2020-07-24] MEDS: METOPROLOL SUCCINATE XL 50 MG TAB PO SCH ×2 (09:13→22:04)
[2020-07-24] MEDS: NYSTATIN TOPICAL POWDER 15GM TOP SCH ×2 (09:13→22:04)
[2020-07-24] MEDS: SODIUM CHLOR 0.9% PF (SALINE LOCK) 10ML VIAL/SYR IV SCH ×2 (09:13→22:03)
[2020-07-24 13:52] VITALS: BP 124/70
[2020-07-24 17:34] VITALS: BP 108/70
--- NOTE | 2020-07-24 19:30 | NUR ---
Opening Shift Note Assumed care of patient, awake and alert X2. No S/S of distress/SOB or pain. InsTructed on POC and to callf or assist PRN, will continue to monitor for changes Q1hr and PRN.
[2020-07-24 22:00] VITALS: BP 107/79
[2020-07-25] MEDS: InsuLIN REG 1unit/0.01ml Soln (100units/ml) SC SCH ×4 (01:21→18:00)
[2020-07-25] MEDS: ACCU-CHEK COMFORT CURVE STRIP VI SCH ×4 (01:21→18:00)
[2020-07-25] MEDS: D5W 5% 1,000 ML IV SCH ×3 (01:49→22:45)
--- NOTE | 2020-07-25 04:00 | NUR ---
TOTAL LINEN CHANGE AND BEDBATH FOR PATIENT. WOUND CARE ON SACRUM. PATIENT TOLERATED.
[2020-07-25 05:00] VITALS: BP 119/77
[2020-07-25 05:54] LABS: Basophils # (auto) 0.1 10 ^3/uL (0-0.2); Basophils % (auto) 0.3 % (0.0-2.0); Eosinophils # (auto) 0.1 10 ^3/uL (0-0.8); Eosinophils % (auto) 0.9 % (0.0-7.0); Hematocrit 34.5 % (41.0-53.0); Hemoglobin 11.3 g/dL (13.5-17.5); Lymphocytes # (auto) 0.7 10 ^3/uL (0.4-5.4); Lymphocytes % (auto) 4.2 % (10.0-50.0); Mean Corpuscular Hemoglobin 28.7 pg (28.0-32.0); Mean Corpuscular Hgb Conc. 32.6 g/dL (32.0-36.0); Monocytes # (auto) 1.3 10 ^3/uL (0-1.3); Monocytes % (auto) 8.5 % (0.0-12.0); Neutrophils # (auto) 13.3 10 ^3/uL (1.6-8.6); Neutrophils % (auto) 86.1 % (37.0-80.0); Nucleated Red Blood Cells % 0.1 %; Platelet Count (auto) 169 10^3/uL (140-450); Red Blood Cells 3.93 10^6/uL (4.5-5.90); Red Cell Distribution Width 19.8 % (11.8-14.3); White Blood Cell 15.5 10^3/uL (4.4-10.8)
[2020-07-25 06:20] LABS: Potassium 3.7 mmol/L (3.5-5.1)
[2020-07-25 06:37] LABS: Albumin 2.3 g/dL (3.4-5.0); BUN/Creatinine Ratio 24.5; Bilirubin, Total 2.5 mg/dL (0.2-1.0); Calcium 7.8 mg/dL (8.5-10.1); Total Protein 5.1 g/dL (6.4-8.2)
[2020-07-25] MEDS: AMIODARONE HCL 200 MG TAB PO SCH ×2 (06:40→18:51)
--- NOTE | 2020-07-25 07:30 | NUR ---
Opening Shift Note Assumed care of patient, awake and alert x2. No S/S of distress/SOB or pain. Dennison catheter patent, hung and secured below waistline. Severe edema noted to right upper extremity, IV fluids held at this time. Will notify MD of findings. Patient instructed on POC and to call for assistance PRN, will continue to monitor for changes Q1hr and PRN.
[2020-07-25 09:00] VITALS: BP 124/83
[2020-07-25] MEDS: SODIUM CHLOR 0.9% PF (SALINE LOCK) 10ML VIAL/SYR IV SCH ×2 (10:00→23:01)
[2020-07-25] MEDS: DIGOXIN 0.125 MG TAB PO SCH (10:32)
[2020-07-25] MEDS: ALLOPURINOL 300 MG TAB PO SCH (10:33)
[2020-07-25] MEDS: METOPROLOL SUCCINATE XL 50 MG TAB PO SCH ×2 (10:33→23:01)
[2020-07-25] MEDS: NYSTATIN TOPICAL POWDER 15GM TOP SCH ×2 (10:33→23:01)
[2020-07-25] MEDS: FAMOTIDINE (10MG/ML) 2ML VL IV SCH ×2 (10:33→23:00)
[2020-07-25] MEDS ORDERED: FUROSEMIDE 40 MG/4 ML VIAL IV ONE (11:00)
--- NOTE | 2020-07-25 11:40 | NUR ---
SPOKE WITH PRIMARY RN ANDRE REGARDING PATIENTS EDEMA TO BILATERAL UPPER EXTREMITIES.ASSESSED PATIENTS BUE AND REFERRED BACK TO PREVIOUS PICC LINE INSERTION ARM CIRCUMFERENCE NOTE. PATIENTS RIGHT UPPER ARM CIRCUMFERENCE AT THE TIME OF PICC LINE PLACEMENT WAS 42 CM. AFTER ASSESSMENT OF PATIENTS RIGHT UPPER ARM TODAY WAS 39 CM. NOTIFIED PRIMARY RN THAT PATIENTS ARM CIRCUMFERENCE IS SMALLER TODAY THAT THE TIME OF INITIAL INSERTION. DR. ANGULO IS REQUESTING TO REMOVE THE CURRENT PICC LINE AND REINSERT ON THE LEFT ARM. I SPOKE WITH DR. ANGULO AND NOTIFIED HIM OF MY FINDING AND HE STATED HE WILL CHECK PATIENTS ARM FOR DVT AND IF THERE IS NO DVT THE PICC LINE CAN STAY IN PLACE.
[2020-07-25 13:00] VITALS: BP 108/76
--- NOTE | 2020-07-25 13:23 | NUR ---
D/C Planning Per SS consult for SNF placement. Placed call to patient vicente Fierro . Per Sri she would like to speak to doctor first before making any decisions. Informed , Dr. Nathan. Dr. Nathan and my self contact patient vicente Fierro via conference call and doctor will have a family meeting tomorrow Wednesday with Sri in regards of discharge plan. Per Dr. Nathan patient is not medical stable to discharge at this time and will possible discharge next week.
--- NOTE | 2020-07-25 14:00 | NUR ---
MD called regarding positive test. Received call from Dr. Nathan regarding positive DVT US to right upper extremity. New orders received at this time, readback and verified twice. Check EMAR for further information. will implement orders at this time and continue care.
[2020-07-25] MEDS ORDERED: ENOXAPARIN SOD 150 MG/1 ML SYRINGE SC ONE (14:30)
--- NOTE | 2020-07-25 14:30 | NUR ---
PICC removal PICC line to NATASHA ARORA'd with clean sterile technique, catheter fully intact. Pressure dressing applied to site. Patient tolerated well.
--- NOTE | 2020-07-25 14:30 | NUR ---
IV insertion IV access obtained, via clean sterile technique by inserting [] gauge catheter at [] after [] attempt(s). IV secured properly. No trauma to site. Patient tolerated well. NOTE: [] Addendum: 07/25/20 at 1854 by AMY HAWLEY RN RN DISREGARD NOTE
--- NOTE | 2020-07-25 16:06 | NUR ---
Midline Placement: Patient educated on need for midline placement. All risks and benefits explained and all questions and concerns addresses prior to procedure. 18g/10cm midline inserted via LEFT CEPHALIC vein using Ultrasound. Sterile technique utilized. Blood return obtained from THE lumen and flushed easily with NS using proper technique. Midline secured with saline lock; biodisc and occlusive dressing applied. Primary RN notified. Midline lot # [id number].
[2020-07-25 17:00] VITALS: BP 105/69
[2020-07-25] MEDS ORDERED: FUROSEMIDE 40 MG/4 ML VIAL IV SCH (18:00)
--- NOTE | 2020-07-25 19:30 | NUR ---
Opening Shift Note Patient is alert and oriented x2. Dennison is in place and hung below bladder draining light angelica urine with sediment. ANDIE midline is patent and asymptomatic. Call light is within reach, side rails up x2, bed is in the lowest position. Instructed on POC and to call for assist PRN, will continue to monitor for changes Q1hr and PRN.
[2020-07-25 22:00] VITALS: BP 147/80
[2020-07-25] MEDS ORDERED: ENOXAPARIN SOD 150 MG/1 ML SYRINGE SC SCH (22:00)
--- NOTE | 2020-07-25 22:10 | NUR ---
Repositioning the patient and found him to have had a BM. While turned to his right side while being cleaned up the patient threw up. Once finished throwing up, he was placed to high fowlers position. Zofran administered for nausea. Oxygen saturation at 87% on 2L/min via nasal cannula, changed oxygen to 4 L/min and oxygen saturation is now at 94%. Auscultated lung sounds, new lung sounds auscultated, will page RT.
--- NOTE | 2020-07-25 22:15 | NUR ---
Paged RT. Auscultated patient's lungs new sounds noted. Right upper lobe: inspiratory- diminished, expiratory- crackles. Right middle lobe: inspiratory diminished, expiratory- crackles. Right lower lobe: inspiratory diminished, expiratory- crackles. Left upper lobe- inspiratory/expiratory diminished, Left lower lobe- inspiratory diminished, expiratory- no sounds noted. Patient has an oxygen saturation of 88% on 2 L/min via nasal cannula, changed oxygen to 4 L/min he now has an 02 of 92%.
--- NOTE | 2020-07-25 22:29 | NUR ---
Hospitalist called back, new order received for STAT chest x-ray and continue to monitor patient. Will carry out.
--- NOTE | 2020-07-25 23:52 | NUR ---
Dr. Barrios came to see pt
[2020-07-26] MEDS: InsuLIN REG 1unit/0.01ml Soln (100units/ml) SC SCH
[2020-07-26] MEDS: ACCU-CHEK COMFORT CURVE STRIP VI SCH
--- NOTE | 2020-07-26 | NUR ---
Endorsed care to Suzanna IBARRA
--- NOTE | 2020-07-26 00:43 | NUR ---
ACCUCHECK Midnight reading was 181mg/dL, covered as ordered. Accucheck machine sanitized but accidentally pressed on "rejected" button while on process of cleaning it. CONSUELO
[2020-07-26] MEDS ORDERED: EPINEPHrine HCL 1 MG/10 ML SYRG IV ONE (02:44)
--- NOTE | 2020-07-26 03:34 | NUR ---
07/25/202299 received pt from previous nurse, cleaned status post vomitus, turned to right side and checked skin as well 07/26/2024 checked pt's sugar, read as 181 mg/dL, covered as ordered. placed a wet towel to forehead as noted to be sweaty (chronic occurrence). 07/26/20129 changed bag of IV fluid 07/26/20219 talked to patient, able to open eyes per command. emptied urine bag catheter (1010 mLs). HR 103 07/26/20239 patient's heart rate drastically dropped to 43 in the monitor, checked room found patient face was pale, with (-) rise and fall of chest and (-) carotid pulses. code called Code team and unit team in the room, pt on chemical code, iv epinephrine 1mg given. ambubag started. patient had no response 07/26/20244 dr. clark pronounced 07/26/20251 spoke with hannah, daughter/poa , gave password and gave her update. 07/26/20300 called [facility], spoke to reina dewitt , gave ref no. [id number] 07/26/20304 dialled executive vp's contact number, to no avail, succeeded by the following times: 0307, 0312, 0318, 0330, 0335 07/26/20 0345 hannah, the daughter, called back with a decision, after talking to her mom, says that they are deciding to have pt cremated. offered closest crematory: [facility]=and stated it's okay for them. 07/26/20354 spoke with deniz of [facility] with number , stated their eta will be in 2-3 hours. they tried asking for poa's signature for consent, but advised them the hospital does not allow visitors at the moment d/t pandemic, deniz stated it's okay. 07/26/20400 dialled executive vp's number to no avail
--- NOTE | 2020-07-26 04:20 | NUR ---
banquet houseperson able to leave message for stallion keeper, awaiting stallion keeper's call back.
--- NOTE | 2020-07-26 04:26 | NUR ---
Will notify Dr. Flood in the morning.
--- NOTE | 2020-07-26 04:35 | NUR ---
trucker called backname is hair woodruff, unable to give a case number at this time d/t no unusual incident such as trauma or fall to patient. but confirmed that we can release the body to mortuary now.
--- NOTE | 2020-07-26 04:50 | NUR ---
[facility] had to cancel service d/t delay in pt's release. hannah notified. hannah further gave instruction that patient's brother, mykel montenegro, be allowed to see patient before any crematory procedure. hannah specified that patient belongings be ready for worm picker. called hannah, daughter, okayed to change cremation company to [facility]. spoke with ty, will call back. alena, director of said [employer] company, stated they will call daughter and call back the hospital.
--- NOTE | 2020-07-26 05:07 | NUR ---
alena, crematory director called back stated they talked to hannah. instruction to have patient's brother, mykel see patient in the house first before any procedure, was confirmed that they are aware.
--- NOTE | 2020-07-26 05:10 | NUR ---
patient being ready for post mortem care by nurses.
--- NOTE | 2020-07-26 05:17 | NUR ---
[facility] callback info:
--- NOTE | 2020-07-26 05:45 | NUR ---
followed up on eta, spoke to nella of [place] . stated he will have major or alena call the hospital back.
--- NOTE | 2020-07-26 06:08 | NUR ---
anna called back, stated an eta of 2 hours from this note. will endorse to next shift for proper release.
--- NOTE | 2020-07-26 06:17 | NUR ---
spoke with icu and lionel nurses, noted no personal belongings left that may have belonged to patient at this time.
--- NOTE | 2020-07-26 06:36 | NUR ---
incident report no. [id number]
[2020-07-26] MEDS ORDERED: POTASSIUM EFFERVESENT TAB 25 MEQ PO SCH (10:00)
== END 2020-07-26 02:45 | disposition expired | DRG 870 ==
LOC: ER 10:54 → EDBD 10:54 → TELE 10:55 → TELE-CENTR 22:46 → ICU WEST 06-30 09:52 → DOU IN ICU 07-13 17:47 → TELE-WESTW 07-16 15:21
PROVIDERS: ADMIT Internal Medicine; ATTEND Family Medicine
PROC: 0D9670Z Drainage of Stomach with Drainage Device, Via Natural or Artificial Opening (ICD-10-PCS; 2020-06-29)
PROC: 5A1955Z Respiratory Ventilation, Greater than 96 Consecutive Hours (ICD-10-PCS; principal; 2020-06-30)
PROC: 0BH17EZ Insertion of Endotracheal Airway into Trachea, Via Natural or Artificial Opening (ICD-10-PCS; 2020-06-30)
PROC: 06HY33Z Insertion of Infusion Device into Lower Vein, Percutaneous Approach (ICD-10-PCS; 2020-06-30)
PROC: 02HV33Z Insertion of Infusion Device into Superior Vena Cava, Percutaneous Approach (ICD-10-PCS; 2020-06-30)
PROC: 05H533Z Insertion of Infusion Device into Right Subclavian Vein, Percutaneous Approach (ICD-10-PCS; 2020-07-04)
PROC: 02HV33Z Insertion of Infusion Device into Superior Vena Cava, Percutaneous Approach (ICD-10-PCS; 2020-07-04)
PROC: 5A1D70Z Performance of Urinary Filtration, Intermittent, Less than 6 Hours Per Day (ICD-10-PCS; 2020-07-04)
PROC: 5A1D70Z Performance of Urinary Filtration, Intermittent, Less than 6 Hours Per Day (ICD-10-PCS; 2020-07-06)
DX: A41.9 Sepsis, unspecified organism (principal); R65.21 Severe sepsis with septic shock; N17.0 Acute kidney failure with tubular necrosis; J96.01 Acute respiratory failure with hypoxia; J69.0 Pneumonitis due to inhalation of food and vomit; G93.6 Cerebral edema; G92 Toxic encephalopathy; N04.9 Nephrotic syndrome with unspecified morphologic changes; N18.4 Chronic kidney disease, stage 4 (severe); E87.2 Acidosis; K51.30 Ulcerative (chronic) rectosigmoiditis without complications; I50.22 Chronic systolic (congestive) heart failure; Z68.41 Body mass index [BMI] 40.0-44.9, adult; E87.0 Hyperosmolality and hypernatremia; E87.1 Hypo-osmolality and hyponatremia; G93.1 Anoxic brain damage, not elsewhere classified; I13.0 Hypertensive heart and chronic kidney disease with heart failure and stage 1 through stage 4 chronic kidney disease, or unspecified chronic kidney disease; I50.20 Unspecified systolic (congestive) heart failure; E11.65 Type 2 diabetes mellitus with hyperglycemia; E87.5 Hyperkalemia; F12.90 Cannabis use, unspecified, uncomplicated; E66.01 Morbid (severe) obesity due to excess calories; E79.0 Hyperuricemia without signs of inflammatory arthritis and tophaceous disease; K76.0 Fatty (change of) liver, not elsewhere classified; D35.2 Benign neoplasm of pituitary gland; D75.1 Secondary polycythemia; G47.33 Obstructive sleep apnea (adult) (pediatric); D75.89 Other specified diseases of blood and blood-forming organs; E11.22 Type 2 diabetes mellitus with diabetic chronic kidney disease; E78.00 Pure hypercholesterolemia, unspecified; E78.5 Hyperlipidemia, unspecified; I25.10 Atherosclerotic heart disease of native coronary artery without angina pectoris; I48.91 Unspecified atrial fibrillation; I67.2 Cerebral atherosclerosis; Z20.828 Contact with and (suspected) exposure to other viral communicable diseases; I95.9 Hypotension, unspecified; Z66 Do not resuscitate; Z79.899 Other long term (current) drug therapy; Z79.891 Long term (current) use of opiate analgesic; Z79.01 Long term (current) use of anticoagulants; Z79.4 Long term (current) use of insulin; E11.40 Type 2 diabetes mellitus with diabetic neuropathy, unspecified; E11.21 Type 2 diabetes mellitus with diabetic nephropathy; Z95.818 Presence of other cardiac implants and grafts
CPT/HCPCS: 31500; 36415; 36569; 36600; 70450; 71045; 73070; 74176; 76775; 78582; 80048; 80053; 80076; 80307; 80320; 81001; 82040; 82140; 82306; 82570; 82805; 82962; 83036; 83605; 83735; 83880; 83970; 84100; 84132; 84300; 84443; 84478; 84484; 84550; 85007; 85025; 85027; 85379; 85610; 85652; 85730; 86141; 87040; 87070; 87077; 87081; 87086; 87186; 87205; 87340; 87426; 90935; 92610; 93005; 93306; 93970; 93971; 94002; 94003; 94640; 95819; 97110; 97116; 97163; 97530; 99291; A4618; G0378; J0330; J0461; J0610; J0696; J1815; J2185; J2248; J2250; J2405; J2543; J3480; J3490; J7042; J7060